=== PATIENT | male | born 1950 | race Caucasian/White ===

== ENCOUNTER 2020-04-07 13:01 | Inpatient (IN) | payer OTHER, SELFPAY ==
[2020-04-07] VITALS (13 sets, daily range): BP systolic 132–174; BP diastolic 59–83; PULSE 63–91; RESP 16–27; TEMP 36.7–37.6; O2SAT 75–97; BMI 28.5
--- NOTE | ~2020-04-07 | XR_ITS ---
EXAMINATION: XR CHEST CLINICAL INFORMATION: Hypoxia. Covid infection. COMPARISON: Previous chest x-ray and chest CTA 04/07/2020 TECHNIQUE: Frontal view of the chest was obtained. FINDINGS: The cardiac and mediastinal contours are stable. There is evidence of interstitial disease. There is increasing bilateral airspace disease suggestive of pneumonia. This is greatest at the lung bases and spares the left upper lobe. There is no pleural effusion or pneumothorax. Bony structures are unremarkable. XR/XR chest 1V IMPRESSION: Increasing bilateral airspace disease probably representing pneumonia. There is also evidence of underlying interstitial lung disease.
--- NOTE | ~2020-04-07 | XR_ITS ---
EXAMINATION: XR CHEST CLINICAL INFORMATION: COVID pneumonia COMPARISON: Chest radiographs 07/21/2018, 10/06/2015, 04/19/2015; CT chest 07/23/2018 TECHNIQUE: Portable upright AP view of the chest was obtained. FINDINGS: There is coarsening of the bronchovascular markings bilateral lower zones and also right upper and perihilar region, progressed since prior exam 07/21/2018. Findings partly related to interstitial lung disease. Superimposed streaky groundglass opacities are suspected. There is no lobar or segmental airspace consolidation or persistent the heart is normal in size. The hilar and mediastinal contours and bony structures are unremarkable. XR/XR chest 1V IMPRESSION: 1. Probable progressive interstitial lung disease increased from prior study 2018. 2. Suspect superimposed reticular groundglass opacities. 3. No lobar or segmental airspace consolidation or effusion.
--- NOTE | ~2020-04-07 | CT_ITS ---
EXAMINATION: CT ANGIOGRAM OF THE CHEST WITH AND WITHOUT CONTRAST (CT PULMONARY ANGIOGRAM FOR PE) CLINICAL INFORMATION: Reason for Exam covid +ve sob COMPARISON: 07/23/2018 TECHNIQUE: Prior to contrast administration, noncontrast localization images were obtained. Subsequently, multidetector volumetric imaging was performed from the thoracic inlet to below the diaphragms following the administration of 80 mL Omnipaque 350 intravenous contrast. No contrast reaction reported Sagittal, coronal, and MIP oblique sagittal reformatted images were obtained on the CT workstation, uploaded to PACS, and reviewed. This CT examination was performed using dose optimization techniques as appropriate, variously including the following: *Automated exposure control *Adjustment of mA and/or kV according to patient size (this includes techniques or standardized protocols for targeted exams where dose is matched to indication/reason for exam; i.e. extremities or head) *Use of iterative reconstruction technique Total exam dose-length product 276 mGy-cm FINDINGS: QUALITY OF STUDY/CONTRAST BOLUS: There is misregistration artifact limiting assessment. PULMONARY ARTERIES: No gross central or segmental pulmonary emboli. Pulmonary arteries are prominent consistent with pulmonary hypertension. THORACIC AORTA: No aneurysm or dissection. LUNG: There is evidence of extensive interstitial lung disease right greater than left with honeycombing particularly on the right. Relative sparing of the apices indicating a basilar gradient. Extent of interstitial infiltrate and groundglass opacities appears to have increased together bases since baseline indicating superimposed atypical infection as per history. Limited detail due to motion degradation. Extent of traction bronchiolectasis is similar. Detail limited for assessment of subtle nodules and pulmonary calculations is noted previously. PLEURA: No pleural effusion or pneumothorax. MEDIASTINUM: Normal heart size. No pericardial effusion. No hilar or mediastinal lymphadenopathy. Straightening of into ventricular septum consistent with increased right heart pressures. CHEST WALL/AXILLA: No axillary or internal mammary lymphadenopathy. OSSEOUS STRUCTURES: No acute or suspicious osseous abnormality. UPPER ABDOMEN: Incidental gallstones within the gallbladder lumen in course right lobe central calcifications. Adrenal nodules appears similar to baseline. The CBD is seen partially and appears prominent but stable. CT/CT angio chest PE protocol IMPRESSION: 1. Limited imaging demonstrating no definitive findings of acute pulmonary embolism. There are changes of pulmonary hypertension with evidence for increased right heart pressures due to presumably advanced interstitial lung disease with superimposed atypical infectious changes. 2. Other chronic findings appear similar. VTE: negative
--- NOTE | ~2020-04-07 | XR_ITS ---
EXAMINATION: XR CHEST CLINICAL INFORMATION: Tube placement COMPARISON: 04/20/2020 TECHNIQUE: Frontal view of the chest was obtained. FINDINGS: The endotracheal tube terminates 5 cm above the rick. Right internal jugular central venous catheter terminates near the cavoatrial junction. Cardiac leads overlie the chest. The lungs are well expanded. Bilateral airspace opacities with interstitial prominence noted. Mildly increased from prior. No pleural effusion or pneumothorax. The cardiomediastinal silhouette is unchanged, with a calcified aorta. XR/XR chest 1V IMPRESSION: Endotracheal tube terminating 5 cm above the rick. Worsening bilateral airspace opacities.
--- NOTE | 2020-04-07 13:17 | ECG_ITS ---
Test Reason : SOB Blood Pressure : / mmHG Vent. Rate : 084 BPM Atrial Rate : 084 BPM P-R Int : 168 ms QRS Dur : 130 ms QT Int : 392 ms P-R-T Axes : 016 -17 027 degrees QTc Int : 463 ms Normal sinus rhythm Right bundle branch block Abnormal ECG When compared with ECG of 21-JUL-2018 14:52, No significant change was found Referred By: Ricky Collier Electronically Signed By:RUDY CABRERA MD
--- NOTE | 2020-04-07 13:17 | PC.NURSE ---
BILATERAL LE EDEMA, SHALLOW RESP
[2020-04-07 13:34] LABS: MANUAL DIFF FLAG NO
[2020-04-07 13:39] LABS: Basophils Percent Auto 0.2 % (0-2); Eosinophils Absolute Auto 0.3 X10*3/uL (0.0-0.4); Eosinophils Percent Auto 3.9 % (0-4); Hematocrit 27.2 % (42-52); Imm Gran Abs Auto 0.02 X10*3/uL (0.00-0.03); Imm Gran Pct Auto 0.2 % (0.0-0.4); Lymphocytes Absolute Auto 1.2 X10*3/uL (1.2-4.9); Lymphocytes Percent Auto 14.1 % (20-40); Mean Corpuscular HGB Conc 29.4 g/dl (31.0-36.0); Mean Corpuscular Hemoglobin 18.4 pg (27.0-33.0); Mean Platelet Volume 9.5 fL (9.4-12.4); Monocytes Absolute Auto 0.7 X10*3/uL (0.1-1.2); Monocytes Percent Auto 8.3 % (2-11); Neutrophils Absolute Auto 6.1 X10*3/uL (2.0-8.3); Neutrophils Percent Auto 73.3 % (45-73); Platelet Count 449 X10*3/uL (160-400); Red Blood Count 4.35 X10*6/uL (4.60-5.80); Red Cell Distribution Width 21.7 % (11.0-16.0); White Blood Count 8.4 X10*3/uL (4.8-10.8)
[2020-04-07 13:40] LABS: Mean Corpuscular Volume 62.5 fL (80-98)
[2020-04-07 13:44] LABS: INTERNATIONAL NORM RATIO 1.1 (0.9-1.1); Prothrombin Time 13.5 SEC (10.8-13.0)
--- NOTE | 2020-04-07 13:44 | ED_ITS ---
HPI - SOB/Dyspnea General Chief Complaint: Dyspnea Stated Complaint: +COVID,SOB Time Seen by Provider: 04/07/20 13:17 Source: patient Mode of arrival: ambulatory Limitations: no limitations History of Present Illness HPI Narrative: Patient feeling short of breath coughing for last 1 week got tested for COVID yesterday which was positive comes here with increased shortness of breath saturating 80% at room air , malaise++ denies any fever no chest pain patient denies any lung condition in the past patient has history of chronic iron deficiency anemia on iron pills MD elicited complaint: shortness of breath and cough Related Data Allergies Allergy/AdvReac Type Severity Reaction Status Date / Time No Known Allergies Allergy Unverified 11/12/19 15:36 [No Known Allergies*] pollen Allergy Unknown Uncoded 02/05/17 00:00 Review of Systems Review of Systems: Constitutional : No Weight loss, No Fever, No Chills ENT/Mouth : No sore throat, No Rhinorrhea Eyes: No Eye Pain, No Swelling Cardiovascular : No Chest Pain, no palpitations Respiratory : ++Cough, No Sputum, +++shortness of breath Gastrointestinal : no Nausea, No Vomiting, No Diarrhea, No abdominal Pain, no black stools Genitourinary : No Dysuria, No Urinary Frequency Musculoskeletal : No joint pain, No Myalgias, No Joint Swelling Skin : No Skin Lesions, No rash Neuro : +++Weakness, No Numbness, No Dizziness, No Headache Psych : No Anxiety/Panic, No Depression Heme/Lymph: No Bruising, No Lymphadenopathy Endocrine : No Polyuria, No Polydipsia All other systems reviewed and are negative [facility] Past Medical History Medical History (Updated 04/07/20 @ 15:31 by CHET Rosenthal) Diabetes HLD (hyperlipidemia) HTN (hypertension) PVD (peripheral vascular disease) Surgical History S/P femoral-popliteal bypass surgery Social History Social History Smoked in Last 30 Days: No Use of substances other than those prescribed or required for medical reasons: No Advance Directives: No Advance Directives Information Provided: No Physical Exam Vital Signs: Vital Signs: Last Vital Signs Temp 98.5 F 04/07/20 13:10 Pulse 84 04/07/20 13:10 Resp 18 04/07/20 13:10 BP 154/71 H 04/07/20 13:10 Pulse Ox 97 04/07/20 13:15 Body Mass Index 28.5 Appearance: Alert. Oriented X3. In moderate distress. Eyes: Pupils equal, round and reactive to light. Pallor+ ENT: Pharynx normal. Neck: Normal inspection. Neck supple. CVS: Normal heart rate and rhythm. Pulses normal. Respiratory: ++ respiratory distress. Diminished breath sounds bilateral no crackles no rales no rhonchi Abdomen: Soft and nontender. Bowel sounds are present, no mass palpable, no CVA tenderness Rectal exam: Normal tone brown stools guaiac negative Skin: Skin warm and dry. Normal skin color. Normal skin turgor. Extremities: 2+ lower extremity edema. No calf tenderness Neuro: Oriented X 3. No motor deficit. No sensory deficit. MDM - SOB/Dyspnea MDM Narrative Medical decision making narrative: Patient COVID -19 positive with diffuse infiltrate with anemia guaiac negative hypoxic on arrival saturating 94% on 4 L will admit patient for COVID-19 related pneumonia with hypoxia supplemental oxygen and IV steroids and also will transfuse 2 units of blood Differential Diagnosis Differential diagnosis: Likely pneumonia Lab Data Attestation: I reviewed the patient's lab results. Result diagrams: 04/07/20 15:24 04/07/20 13:25 Labs: Lab Results 04/07/20 04/07/20 04/07/20 Range/Units 13:25 13:25 13:25 WBC 8.4 (4.8-10.8) X10*3/uL RBC 4.35 L (4.60-5.80) X10*6/uL Hgb 8.0 L (14.0-18.0) g/dl Hct 27.2 L (42-52) % MCV 62.5 L (80-98) fL MCH 18.4 L (27.0-33.0) pg MCHC 29.4 L (31.0-36.0) g/dl RDW 21.7 H (11.0-16.0) % Plt Count 449 H (160-400) X10*3/uL MPV 9.5 (9.4-12.4) fL Immature Gran % (Auto) 0.2 (0.0-0.4) % Neut % (Auto) 73.3 H (45-73) % Lymph % (Auto) 14.1 L (20-40) % Archer % (Auto) 8.3 (2-11) % Eos % (Auto) 3.9 (0-4) % Baso % (Auto) 0.2 (0-2) % Lymph # (Auto) 1.2 (1.2-4.9) X10*3/uL Archer # (Auto) 0.7 (0.1-1.2) X10*3/uL Eos # (Auto) 0.3 (0.0-0.4) X10*3/uL Baso # (Auto) 0.0 (0.0-0.2) X10*3/uL Abs Immat Gran (auto) 0.02 (0.00-0.03) X10*3/uL Absolute Neuts (auto) 6.1 (2.0-8.3) X10*3/uL Absolute Nucleated RBC 0.000 (0.0-0.012) X10*3/uL Nucleated RBC % (auto) 0.0 (0.0-0.2) /100WBC PT (10.8-13.0) SEC INR (0.9-1.1) APTT (24.1-38.0) SEC D-Dimer NG/ML VBG pH (7.32-7.43) VBG pCO2 mmHg VBG pO2 mmHg VBG HCO3 mmol/L VBG O2 Saturation % VBG Base Excess mmol/L Sodium 139 (135-145) mmol/L Potassium 4.6 (3.3-5.1) mmol/L Chloride 107 (96-108) mmol/L Carbon Dioxide 23 (22-29) mmol/L Anion Gap 14 (12-20) BUN 11 (9-16) mg/dL Creatinine 0.84 (0.5-1.4) mg/dL Estim Creat Clear Calc 92.5 Estimated GFR > 60 Random Glucose 112 (60-115) mg/dL Lactic Acid 2.1 H* (0.5-2.0) mmol/L Calcium 8.3 L (8.4-10.2) mg/dL Iron (45-160) mcg/dL TIBC (228-428) mcg/dL % Saturation (15-50) % Unsat Iron Binding ug/dL Ferritin 37 (20-250) ng/mL Total Bilirubin 0.3 (0.0-1.0) mg/dL Direct Bilirubin 0.2 (0.0-0.5) mg/dL AST 28 (5-37) U/L ALT 11 (0-40) U/L Alkaline Phosphatase 121 H (39-117) U/L Lactate Dehydrogenase 368 H (118-273) U/L Troponin I High Sens (<3.5-35.0) ng/L C-Reactive Protein 5.55 H (< or = 0.50) mg/dL B-Natriuretic Peptide (<100) pg/mL Total Protein 7.0 (6.5-8.0) g/dL Albumin 3.7 (3.5-5.0) g/dL Procalcitonin ng/mL COVID-19 ([facility]) (Negative) COVID-19 Clin Com 04/07/20 04/07/20 04/07/20 Range/Units 13:25 13:25 13:25 WBC (4.8-10.8) X10*3/uL RBC (4.60-5.80) X10*6/uL Hgb (14.0-18.0) g/dl Hct (42-52) % MCV (80-98) fL MCH (27.0-33.0) pg MCHC (31.0-36.0) g/dl RDW (11.0-16.0) % Plt Count (160-400) X10*3/uL MPV (9.4-12.4) fL Immature Gran % (Auto) (0.0-0.4) % Neut % (Auto) (45-73) % Lymph % (Auto) (20-40) % Archer % (Auto) (2-11) % Eos % (Auto) (0-4) % Baso % (Auto) (0-2) % Lymph # (Auto) (1.2-4.9) X10*3/uL Archer # (Auto) (0.1-1.2) X10*3/uL Eos # (Auto) (0.0-0.4) X10*3/uL Baso # (Auto) (0.0-0.2) X10*3/uL Abs Immat Gran (auto) (0.00-0.03) X10*3/uL Absolute Neuts (auto) (2.0-8.3) X10*3/uL Absolute Nucleated RBC (0.0-0.012) X10*3/uL Nucleated RBC % (auto) (0.0-0.2) /100WBC PT 13.5 H (10.8-13.0) SEC INR 1.1 (0.9-1.1) APTT 32.8 (24.1-38.0) SEC D-Dimer 246 NG/ML VBG pH (7.32-7.43) VBG pCO2 mmHg VBG pO2 mmHg VBG HCO3 mmol/L VBG O2 Saturation % VBG Base Excess mmol/L Sodium (135-145) mmol/L Potassium (3.3-5.1) mmol/L Chloride (96-108) mmol/L Carbon Dioxide (22-29) mmol/L Anion Gap (12-20) BUN (9-16) mg/dL Creatinine (0.5-1.4) mg/dL Estim Creat Clear Calc Estimated GFR Random Glucose (60-115) mg/dL Lactic Acid (0.5-2.0) mmol/L Calcium (8.4-10.2) mg/dL Iron (45-160) mcg/dL TIBC (228-428) mcg/dL % Saturation (15-50) % Unsat Iron Binding ug/dL Ferritin Cancelled (20-250) ng/mL Total Bilirubin (0.0-1.0) mg/dL Direct Bilirubin (0.0-0.5) mg/dL AST (5-37) U/L ALT (0-40) U/L Alkaline Phosphatase (39-117) U/L Lactate Dehydrogenase (118-273) U/L Troponin I High Sens 4.2 (<3.5-35.0) ng/L C-Reactive Protein (< or = 0.50) mg/dL B-Natriuretic Peptide 51 (<100) pg/mL Total Protein (6.5-8.0) g/dL Albumin (3.5-5.0) g/dL Procalcitonin ng/mL COVID-19 ([facility]) (Negative) COVID-19 Clin Com 04/07/20 04/07/20 04/07/20 Range/Units 13:25 13:25 14:45 WBC (4.8-10.8) X10*3/uL RBC (4.60-5.80) X10*6/uL Hgb (14.0-18.0) g/dl Hct (42-52) % MCV (80-98) fL MCH (27.0-33.0) pg MCHC (31.0-36.0) g/dl RDW (11.0-16.0) % Plt Count (160-400) X10*3/uL MPV (9.4-12.4) fL Immature Gran % (Auto) (0.0-0.4) % Neut % (Auto) (45-73) % Lymph % (Auto) (20-40) % Archer % (Auto) (2-11) % Eos % (Auto) (0-4) % Baso % (Auto) (0-2) % Lymph # (Auto) (1.2-4.9) X10*3/uL Archer # (Auto) (0.1-1.2) X10*3/uL Eos # (Auto) (0.0-0.4) X10*3/uL Baso # (Auto) (0.0-0.2) X10*3/uL Abs Immat Gran (auto) (0.00-0.03) X10*3/uL Absolute Neuts (auto) (2.0-8.3) X10*3/uL Absolute Nucleated RBC (0.0-0.012) X10*3/uL Nucleated RBC % (auto) (0.0-0.2) /100WBC PT (10.8-13.0) SEC INR (0.9-1.1) APTT (24.1-38.0) SEC D-Dimer NG/ML VBG pH (7.32-7.43) VBG pCO2 mmHg VBG pO2 mmHg VBG HCO3 mmol/L VBG O2 Saturation % VBG Base Excess mmol/L Sodium (135-145) mmol/L Potassium (3.3-5.1) mmol/L Chloride (96-108) mmol/L Carbon Dioxide (22-29) mmol/L Anion Gap (12-20) BUN (9-16) mg/dL Creatinine (0.5-1.4) mg/dL Estim Creat Clear Calc Estimated GFR Random Glucose (60-115) mg/dL Lactic Acid (0.5-2.0) mmol/L Calcium (8.4-10.2) mg/dL Iron 21 L (45-160) mcg/dL TIBC 364 (228-428) mcg/dL % Saturation 6 L (15-50) % Unsat Iron Binding 343 ug/dL Ferritin (20-250) ng/mL Total Bilirubin (0.0-1.0) mg/dL Direct Bilirubin (0.0-0.5) mg/dL AST (5-37) U/L ALT (0-40) U/L Alkaline Phosphatase (39-117) U/L Lactate Dehydrogenase (118-273) U/L Troponin I High Sens (<3.5-35.0) ng/L C-Reactive Protein (< or = 0.50) mg/dL B-Natriuretic Peptide (<100) pg/mL Total Protein (6.5-8.0) g/dL Albumin (3.5-5.0) g/dL Procalcitonin 0.03 ng/mL COVID-19 ([facility]) Positive A (Negative) COVID-19 Clin Com See Note 04/07/20 Range/Units 14:45 WBC (4.8-10.8) X10*3/uL RBC (4.60-5.80) X10*6/uL Hgb (14.0-18.0) g/dl Hct (42-52) % MCV (80-98) fL MCH (27.0-33.0) pg MCHC (31.0-36.0) g/dl RDW (11.0-16.0) % Plt Count (160-400) X10*3/uL MPV (9.4-12.4) fL Immature Gran % (Auto) (0.0-0.4) % Neut % (Auto) (45-73) % Lymph % (Auto) (20-40) % Archer % (Auto) (2-11) % Eos % (Auto) (0-4) % Baso % (Auto) (0-2) % Lymph # (Auto) (1.2-4.9) X10*3/uL Archer # (Auto) (0.1-1.2) X10*3/uL Eos # (Auto) (0.0-0.4) X10*3/uL Baso # (Auto) (0.0-0.2) X10*3/uL Abs Immat Gran (auto) (0.00-0.03) X10*3/uL Absolute Neuts (auto) (2.0-8.3) X10*3/uL Absolute Nucleated RBC (0.0-0.012) X10*3/uL Nucleated RBC % (auto) (0.0-0.2) /100WBC PT (10.8-13.0) SEC INR (0.9-1.1) APTT (24.1-38.0) SEC D-Dimer NG/ML VBG pH 7.39 (7.32-7.43) VBG pCO2 29 mmHg VBG pO2 47 mmHg VBG HCO3 18 mmol/L VBG O2 Saturation 74.0 % VBG Base Excess -5.6 mmol/L Sodium (135-145) mmol/L Potassium (3.3-5.1) mmol/L Chloride (96-108) mmol/L Carbon Dioxide (22-29) mmol/L Anion Gap (12-20) BUN (9-16) mg/dL Creatinine (0.5-1.4) mg/dL Estim Creat Clear Calc Estimated GFR Random Glucose (60-115) mg/dL Lactic Acid (0.5-2.0) mmol/L Calcium (8.4-10.2) mg/dL Iron (45-160) mcg/dL TIBC (228-428) mcg/dL % Saturation (15-50) % Unsat Iron Binding ug/dL Ferritin (20-250) ng/mL Total Bilirubin (0.0-1.0) mg/dL Direct Bilirubin (0.0-0.5) mg/dL AST (5-37) U/L ALT (0-40) U/L Alkaline Phosphatase (39-117) U/L Lactate Dehydrogenase (118-273) U/L Troponin I High Sens (<3.5-35.0) ng/L C-Reactive Protein (< or = 0.50) mg/dL B-Natriuretic Peptide (<100) pg/mL Total Protein (6.5-8.0) g/dL Albumin (3.5-5.0) g/dL Procalcitonin ng/mL COVID-19 ([facility]) (Negative) COVID-19 Clin Com Imaging Data CT scan - chest: Attestation: I personally reviewed and interpreted this imaging study as follows: Radiologist's impression: c: Ricky Collier MD~ EXAMINATION: CT ANGIOGRAM OF THE CHEST WITH AND WITHOUT CONTRAST (CT PULMONARY ANGIOGRAM FOR PE) CLINICAL INFORMATION: Reason for Exam covid +ve sob COMPARISON: 07/23/2018 TECHNIQUE: Prior to contrast administration, noncontrast localization images were obtained. Subsequently, multidetector volumetric imaging was performed from the thoracic inlet to below the diaphragms following the administration of 80 mL Omnipaque 350 intravenous contrast. No contrast reaction reported Sagittal, coronal, and MIP oblique sagittal reformatted images were obtained on the CT workstation, uploaded to PACS, and reviewed. This CT examination was performed using dose optimization techniques as appropriate, variously including the following: *Automated exposure control *Adjustment of mA and/or kV according to patient size (this includes techniques or standardized protocols for targeted exams where dose is matched to indication/reason for exam; i.e. extremities or head) *Use of iterative reconstruction technique Total exam dose-length product 276 mGy-cm FINDINGS: QUALITY OF STUDY/CONTRAST BOLUS: There is misregistration artifact limiting assessment. PULMONARY ARTERIES: No gross central or segmental pulmonary emboli. Pulmonary arteries are prominent consistent with pulmonary hypertension. THORACIC AORTA: No aneurysm or dissection. LUNG: There is evidence of extensive interstitial lung disease right greater than left with honeycombing particularly on the right. Relative sparing of the apices indicating a basilar gradient. Extent of interstitial infiltrate and groundglass opacities appears to have increased together bases since baseline indicating superimposed atypical infection as per history. Limited detail due to motion degradation. Extent of traction bronchiolectasis is similar. Detail limited for assessment of subtle nodules and pulmonary calculations is noted previously. PLEURA: No pleural effusion or pneumothorax. MEDIASTINUM: Normal heart size. No pericardial effusion. No hilar or mediastinal lymphadenopathy. Straightening of into ventricular septum consistent with increased right heart pressures. CHEST WALL/AXILLA: No axillary or internal mammary lymphadenopathy. OSSEOUS STRUCTURES: No acute or suspicious osseous abnormality. UPPER ABDOMEN: Incidental gallstones within the gallbladder lumen in course right lobe central calcifications. Adrenal nodules appears similar to baseline. The CBD is seen partially and appears prominent but stable. CT/CT angio chest PE protocol IMPRESSION: 1. Limited imaging demonstrating no definitive findings of acute pulmonary embolism. There are changes of pulmonary hypertension with evidence for increased right heart pressures due to presumably advanced interstitial lung disease with superimposed atypical infectious changes. 2. Other chronic findings appear similar. VTE: negative ECG Data Attestation: I personally reviewed and interpreted this ECG as follows: Interpretation: Normal sinus rhythm with ventricular rate of 84 beats per minute right bundle branch block normal axis no acute ST T wave changes no acute ischemia Discharge Plan Discharge Clinical Impression: 2019 novel coronavirus–infected pneumonia (NCIP)#8211;infected pneumonia (NCIP), Hypoxia Anemia Qualifiers: Anemia type: iron deficiency Iron deficiency anemia type: other iron deficiency Qualified Code(s): D50.8 - Other iron deficiency anemias Patient Disposition: Admitted As Inpatient
[2020-04-07 13:47] LABS: D Dimer 246 NG/ML; Partial Thromboplastin Time 32.8 SEC (24.1-38.0)
[2020-04-07 13:58] LABS: Lactic Acid 2.1 mmol/L (0.5-2.0)
[2020-04-07 14:07] LABS: B Type Natriuretic Peptide 51 pg/mL (<100); Troponin-I High Sensitivity 4.2 ng/L (<3.5-35.0)
[2020-04-07 14:15] LABS: Alanine Aminotransferase 11 U/L (0-40); Albumin Level 3.7 g/dL (3.5-5.0); Alkaline Phosphatase 121 U/L (39-117); Anion Gap 14 (12-20); Aspartate Amino Transferase 28 U/L (5-37); Bilirubin Direct 0.2 mg/dL (0.0-0.5); Bilirubin Total 0.3 mg/dL (0.0-1.0); Blood Urea Nitrogen 11 mg/dL (9-16); C Reactive Protein 5.55 mg/dL (< or = 0.50); Calcium 8.3 mg/dL (8.4-10.2); Carbon Dioxide 23 mmol/L (22-29); Chloride 107 mmol/L (96-108); Creatinine Clr Calc Pharmacy 92.5; Estimated Glomerular Filt Rate > 60; Glucose Random 112 mg/dL (60-115); Lactate Dehydrogenase 368 U/L (118-273); Potassium 4.6 mmol/L (3.3-5.1); Sodium 139 mmol/L (135-145)
[2020-04-07 14:34] LABS: Procalcitonin 0.03 ng/mL
[2020-04-07 14:35] LABS: Ferritin 37 ng/mL (20-250)
[2020-04-07] MEDS: iohexoL 350 MG/ML 100 ML INFUS..BTL IV (14:50)
[2020-04-07 14:54] LABS: Base Excess VBG -5.6 mmol/L; HCO3 VBG 18 mmol/L; PO2 VBG 47 mmHg
[2020-04-07 14:55] LABS: PCO2 VBG 29 mmHg; pH VBG 7.39 (7.32-7.43)
[2020-04-07 15:00] LABS: COVID-19 Test Positive (Negative)
--- NOTE | 2020-04-07 15:21 | P.HPHOSP_ITS ---
History of Present Illness Date of Service: 04/07/20 Chief Complaint: shortness of breath This is a 70-year-old male who presents the emergency department with shortness of breath. Patient was recently diagnosed with COVID-19. He was evaluated last week and tested negative but was retested on Wednesday 04/05 and was informed yesterday that the test was positive. His brother in law who lives with him has also been feeling ill. He has not been feeling well for the last week to week and half. His shortness of breath is primarily with exertion. He has associated cough. He denies associated fever, chills. On arrival to the ED he was hypoxia and documented to be saturating 80% on room air. chest x-ray showed progressive interstitial lung disease increased from 2019 with likely superimposed reticular ground-glass opacities. CTA was done and is pending at this time. Inflammatory markers were checked and CRP was 5.55, LDH 368, ferritin 37. His initial lactic acid was 2.1. His CBC revealed anemia with an H /H of 8.0/27.2 which was a decrease from 13.6/41.6 on 07/25/2018. He denies any dark or bloody stools. A rectal exam was done and the results are pending at this time. Review of Systems Review of Systems: Yes all other systems are reviewed and are negative Constitutional: Constitutional: Denies chills and Denies fever(s) Cardiovascular: Cardiovascular: Denies chest pain and Reports dyspnea Respiratory: Respiratory: Reports dyspnea Gastrointestinal: Gastrointestinal: Denies abdominal pain [facility] Medical History (Updated 04/07/20 @ 15:31 by CHET Rosenthal) Diabetes HLD (hyperlipidemia) HTN (hypertension) PVD (peripheral vascular disease) Functional capacity: independent ambulation Family history: reviewed and not pertinent Surgical History S/P femoral-popliteal bypass surgery Social History Smoked in Last 30 Days: No Use of substances other than those prescribed or required for medical reasons: No Advance Directives: No Advance Directives Information Provided: No Meds Allergies Allergy/AdvReac Type Severity Reaction Status Date / Time No Known Allergies Allergy Unverified 11/12/19 15:36 [No Known Allergies*] pollen Allergy Unknown Uncoded 02/05/17 00:00 Active Medications: Current Medications Generic Name Dose Route Start Last Admin Trade Name Carly PRN Reason Stop Dose Admin Pharmacy Consult 1 each 04/07/20 14:47 Consult Rx Perform Med Rec MISCELLANE ONCE PRN Consult order Home Medications Medication Instructions Recorded Confirmed Last Taken Type acetaminophen 500 mg PO TID PRN 04/07/20 04/07/20 Unknown History aspirin 81 mg PO DAILY 04/07/20 04/07/20 Unknown History atorvastatin 80 mg PO BEDTIME 04/07/20 04/07/20 Unknown History betamethasone dipropionate 1 appl TOPICAL BID PRN 04/07/20 04/07/20 Unknown History bupropion HCl 300 mg PO DAILY 04/07/20 04/07/20 Unknown History cilostazol 100 mg PO BID 04/07/20 04/07/20 Unknown History clopidogrel 75 mg PO DAILY 04/07/20 04/07/20 Unknown History clotrimazole 1 appl TOPICAL DAILY 04/07/20 04/07/20 Unknown History cyanocobalamin (vitamin B-12) 1,000 mcg PO DAILY 04/07/20 04/07/20 Unknown History diltiazem HCl 420 mg PO DAILY 04/07/20 04/07/20 Unknown History folic acid 1 mg PO DAILY 04/07/20 04/07/20 Unknown History insulin aspart U-100 [Novolog See Rx Instructions .ROUTE .COMPLEX 04/07/20 04/07/20 Unknown History U-100 Insulin aspart] insulin glargine [Lantus U-100 15 unit SUBCUT DAILY 04/07/20 04/07/20 Unknown History Insulin] latanoprost 1 drp OPHTHALMIC (EYE) QPM 04/07/20 04/07/20 Unknown History lisinopril-hydrochlorothiazide 1 tab PO BID 04/07/20 04/07/20 Unknown History tolterodine 4 mg PO DAILY 04/07/20 04/07/20 Unknown History zolpidem 10 mg PO BEDTIME PRN 04/07/20 04/07/20 Unknown History Physical Exam Vital Signs and Narrative: Vital Signs: Last Vital Signs Temp 98.5 F 04/07/20 13:10 Pulse 84 04/07/20 13:10 Resp 18 04/07/20 13:10 BP 154/71 H 04/07/20 13:10 Pulse Ox 97 04/07/20 13:15 Body Mass Index 28.5 Const: General: alert and awake Nutritional Appearance: well nourished Orientation/consciousness: patient oriented x3 HENMT: Head: Yes normocephalic and Yes atraumatic Eyes: Sclerae: sclerae normal Chest: Chest palpation & inspection: normal inspection of the chest Resp: Effort & Inspection: tachypneic Cardio: Rate: regular rate Rhythm: regular rhythm GI: Palpation (GI): Soft to palpation and nontender Skin: General skin exam: no rashes or lesions noted Neuro: General: patient oriented x3 Cranial nerves: Yes CN's II-XII intact bilaterally and Yes Bilaterally intact EOM present Extrem: General: Yes normal to inspection Results Labs CBC and Chem 7: 04/07/20 15:24 04/07/20 13:25 Labs: Laboratory Results - last 24 hr 04/07/20 04/07/20 04/07/20 13:25 13:25 13:25 MCV 62.5 L MCH 18.4 L MCHC 29.4 L RDW 21.7 H Plt Count 449 H MPV 9.5 Immature Gran % (Auto) 0.2 Neut % (Auto) 73.3 H Lymph % (Auto) 14.1 L [place] % (Auto) 8.3 Eos % (Auto) 3.9 Baso % (Auto) 0.2 Lymph # (Auto) 1.2 Mineral # (Auto) 0.7 Eos # (Auto) 0.3 Baso # (Auto) 0.0 Abs Immat Gran (auto) 0.02 Absolute Neuts (auto) 6.1 Absolute Nucleated RBC 0.000 Nucleated RBC % (auto) 0.0 PT INR APTT D-Dimer VBG pH VBG pCO2 VBG pO2 VBG HCO3 VBG O2 Saturation VBG Base Excess Anion Gap 14 Estim Creat Clear Calc 92.5 Estimated GFR > 60 Random Glucose 112 Lactic Acid 2.1 H* Calcium 8.3 L Ferritin 37 Total Bilirubin 0.3 Direct Bilirubin 0.2 AST 28 ALT 11 Alkaline Phosphatase 121 H Lactate Dehydrogenase 368 H Troponin I High Sens C-Reactive Protein 5.55 H B-Natriuretic Peptide Total Protein 7.0 Albumin 3.7 Procalcitonin COVID-19 ([facility]) COVID-19 Clin Com 04/07/20 04/07/20 04/07/20 13:25 13:25 13:25 MCV MCH MCHC RDW Plt Count MPV Immature Gran % (Auto) Neut % (Auto) Lymph % (Auto) Mineral % (Auto) Eos % (Auto) Baso % (Auto) Lymph # (Auto) Mineral # (Auto) Eos # (Auto) Baso # (Auto) Abs Immat Gran (auto) Absolute Neuts (auto) Absolute Nucleated RBC Nucleated RBC % (auto) PT 13.5 H INR 1.1 APTT 32.8 D-Dimer 246 VBG pH VBG pCO2 VBG pO2 VBG HCO3 VBG O2 Saturation VBG Base Excess Anion Gap Estim Creat Clear Calc Estimated GFR Random Glucose Lactic Acid Calcium Ferritin Cancelled Total Bilirubin Direct Bilirubin AST ALT Alkaline Phosphatase Lactate Dehydrogenase Troponin I High Sens 4.2 C-Reactive Protein B-Natriuretic Peptide 51 Total Protein Albumin Procalcitonin COVID-19 ([facility]) COVID-[employer] 04/07/20 04/07/20 04/07/20 13:25 14:45 14:45 MCV MCH MCHC RDW Plt Count MPV Immature Gran % (Auto) Neut % (Auto) Lymph % (Auto) Mineral % (Auto) Eos % (Auto) Baso % (Auto) Lymph # (Auto) Mineral # (Auto) Eos # (Auto) Baso # (Auto) Abs Immat Gran (auto) Absolute Neuts (auto) Absolute Nucleated RBC Nucleated RBC % (auto) PT INR APTT D-Dimer VBG pH 7.39 VBG pCO2 29 VBG pO2 47 VBG HCO3 18 VBG O2 Saturation 74.0 VBG Base Excess -5.6 Anion Gap Estim Creat Clear Calc Estimated GFR Random Glucose Lactic Acid Calcium Ferritin Total Bilirubin Direct Bilirubin AST ALT Alkaline Phosphatase Lactate Dehydrogenase Troponin I High Sens C-Reactive Protein B-Natriuretic Peptide Total Protein Albumin Procalcitonin 0.03 COVID-19 ([facility]) Positive A CalesterID-19 NATIONSPLAY See Note Imaging Radiologist's Impressions: Impressions Chest X-Ray 04/07/20 13:20 IMPRESSION: 1. Probable progressive interstitial lung disease increased from prior study 2019. 2. Suspect superimposed reticular groundglass opacities. 3. No lobar or segmental airspace consolidation or effusion. Assessment and Plan (1) 2019 novel coronavirus–infected pneumonia (NCIP)#8211;infected pneumonia (NCIP): Status: Acute (2) Hypoxia: Status: Acute This is a 70-year-old male with history of peripheral vascular disease, diabetes, hypertension, dyslipidemia, recent diagnosis of COVID-19 who presents to the emergency department with shortness of breath found to be hypoxic Acute respiratory failure with hypoxia Pneumonia secondary to COVID-19 -IV dexamethasone -supplemental oxygen as needed, wean as tolerated -ID consult anemia significant drop from previous stool occult blood negative labs c/w iron deficiency -follow cbc diabetes Continue home dose of Lantu continues -SSI, POC Hypertension Continue lisinopril, hydrochlorothiazide Confirm diltiazem dose in a.m. Overactive bladder Continue to tolerodine Mood Continue bupropion PVD Continue aspirin, Plavix, pletal Hyperlipidemia Continue statin dvt ppx - boots code status - full code This case was discussed with Dr. Malik
--- NOTE | 2020-04-07 15:21 | PM.EVENT ---
Event Note Date of Service: 04/08/20 Event Note: addendum to H+P by CHET Lockett I interviewed and examined the patient. I discussed their presentation and management with the mid-level provider. I reviewed the history and physical and agree with the documentation, with the following additions and corrections: 70yo M with HTN, DM2, PAD s/p fem pop byass on clopidogrel, HLD, depression, anemia on iron presenting with 10d of cough and worsening dyspnea found to have SaO2 80 on RA here no fevers no sick contacts currently afebrile, P 84, RR 26-28, BP 154.71, Sao2 97 on 4L NC tachypneic no edema labs notable for WBC 8.4 with 14% lymphs, plt 449 . Hb 8, MCV 63, FOBT neg LA 2.1, D-dimer 246 SCr 0.84 ferritin 37, LDH 368, CRP 5.55, PCT 0.03, LDh 368, PCT 0.03 CXR with interstitial disease + groundglass opacities CTA no PE. pHTN with advanced interstitial lung disease with superimposed atypical infectious changes transfsed 2 units of pRBCs in ED plan admit to [facility], dexamethasone 6 mg daily x10d, ID consult [out of remdesivir window?] monitor Hb
[2020-04-07 15:31] LABS: OBS Int Ctl Valid YES; OBS1 NEG (NEG)
[2020-04-07 15:33] LABS: Reflex Lactate? Lactic Acid Added
[2020-04-07 15:34] LABS: Hematocrit 26.1 % (42-52); Hemoglobin 7.7 g/dl (14.0-18.0)
[2020-04-07 15:36] LABS: Iron 21 mcg/dL (45-160); Percent Iron Saturation 6 % (15-50); Total Iron Binding Capacity 364 mcg/dL (228-428); Unsaturated Iron Binding 343 ug/dL
[2020-04-07 16:25] LABS: ~Lactic Acid-LAB USE ONLY 1.8 mmol/L (0.5-2.0)
--- NOTE | 2020-04-07 18:05 | PC.NURSE ---
Pt removed nasal cannula while eating- desat to 71% on room air, placed back on nasal cannula and educated. spo2 now trending up wnl. Pt in no distress at this time.
--- NOTE | 2020-04-07 18:11 | PC.NURSE ---
Pt unable to main spo2 wnl on nasal cannula- placed on non-rebreather, now 94%
--- NOTE | 2020-04-07 18:14 | PC.NURSE ---
Pt now tolerating 96% on 4l nasal cannula
[2020-04-07 20:53] LABS: Glucose, Whole Blood 285 mg/dL (60-115)
[2020-04-07] MEDS: hydroCHLOROthiazide 12.5 MG TABLET PO (21:22)
[2020-04-07] MEDS: Atorvastatin Calcium 80 MG TABLET PO (21:22)
[2020-04-07] MEDS: Insulin Lispro 100 UNIT/ML 3 ML VIAL SUBCUT (21:22)
[2020-04-07] MEDS: cilostazoL 100 MG TABLET PO (21:35)
[2020-04-07] MEDS: 0.9 % Sodium Chloride Flush 3 ML SYRINGE IVFLUSH (22:15)
[2020-04-08] VITALS (8 sets, daily range): BP systolic 143–177; BP diastolic 70–88; PULSE 77–88; RESP 20–28; TEMP 35.4–37.2; O2SAT 91–98
[2020-04-08 00:19] LABS: Glucose, Whole Blood 140 mg/dL (60-115)
[2020-04-08 06:57] LABS: MANUAL DIFF FLAG NO
[2020-04-08 07:12] LABS: Basophils Percent Auto 0.1 % (0-2); Imm Gran Abs Auto 0.04 X10*3/uL (0.00-0.03); Imm Gran Pct Auto 0.5 % (0.0-0.4); Lymphocytes Absolute Auto 0.7 X10*3/uL (1.2-4.9); Lymphocytes Percent Auto 8.7 % (20-40); Mean Corpuscular Hemoglobin 19.7 pg (27.0-33.0); Mean Corpuscular Volume 65.5 fL (80-98); Monocytes Absolute Auto 0.6 X10*3/uL (0.1-1.2); Monocytes Percent Auto 6.8 % (2-11); Neutrophils Absolute Auto 6.8 X10*3/uL (2.0-8.3); Neutrophils Percent Auto 83.9 % (45-73); Platelet Count 373 X10*3/uL (160-400); Red Blood Count 4.58 X10*6/uL (4.60-5.80); Red Cell Distribution Width 25.7 % (11.0-16.0); White Blood Count 8.1 X10*3/uL (4.8-10.8)
[2020-04-08 07:55] LABS: Glucose, Whole Blood 212 mg/dL (60-115)
[2020-04-08 08:22] LABS: Estimated Average Glucose 151 mg/dL; Hemoglobin A1c % 6.9 %
[2020-04-08] MEDS: Insulin Glargine,Hum.rec.anlog 100 UNIT/ML 10 ML VIAL 15 UNIT SUBCUT (08:31)
[2020-04-08] MEDS: Insulin Lispro 100 UNIT/ML 3 ML VIAL SUBCUT ×4 (08:31→21:18)
[2020-04-08] MEDS: 0.9 % Sodium Chloride Flush 3 ML SYRINGE IVFLUSH ×3 (08:31→21:26)
[2020-04-08] MEDS: hydroCHLOROthiazide 12.5 MG TABLET PO ×2 (08:32→21:18)
[2020-04-08] MEDS: cilostazoL 100 MG TABLET PO ×2 (08:32→21:18)
[2020-04-08] MEDS: Folic Acid 1 MG TABLET PO (08:32)
[2020-04-08] MEDS: Aspirin Enteric Coated 81 MG TABLET.DR PO (08:32)
[2020-04-08] MEDS: buPROPion HCl XL 300 MG TAB.ER.24H PO (08:33)
[2020-04-08] MEDS: Tolterodine Tartrate LA 4 MG CAP.ER.24H PO (08:33)
[2020-04-08] MEDS: Clopidogrel Bisulfate 75 MG TABLET PO (08:33)
[2020-04-08] MEDS: Cyanocobalamin (Vitamin B-12) 1,000 MCG TABLET 1000 MCG PO (08:33)
--- NOTE | 2020-04-08 09:39 | MHC.CM.PN ---
Patient is on the Covid Unit and not reachable by phone this morning; CM spoke with /Cira at [phone], with assist of [employer] over the phone. Patient lives in a house with his and [id number] and he is functionally independent. The goal for dc is to return home with no anticipated need for home services; CM has initiated and will follow for dc planning. PCP is from [facility] (Dr. Qian Cuevas @ [phone]).
--- NOTE | 2020-04-08 11:12 | HO.PM.IMPN ---
Subjective Subjective Date of Service: 04/08/20 Interval History: Mild dyspnea Was on NRB overnight but now back on 4L NC No chest pain No fever Physical Exam Vital Signs: Vital Signs: Last Vital Signs Temp 98.7 F 04/08/20 08:00 Pulse 77 04/08/20 08:00 Resp 20 04/08/20 08:00 BP 150/73 H 04/08/20 08:00 Pulse Ox 98 04/08/20 08:00 Body Mass Index 28.5 Gen: in no acute distress HEENT: sclera anicteric, moist mucus membranes Neck: supple Lungs: no respiratory distress, auscultation deferred due to COVID-19 Heart: normal peripheral pulses Abd: soft, non-tender, non-distended Ext: no cyanosis, clubbing, or edema Skin: warm/well-perfused Neuro: alert and oriented x3, no focal findings Psych: appropriate affect Objective Data Current Medications Generic Name Dose Route Start Last Admin Trade Name Freq PRN Reason Stop Dose Admin Acetaminophen 650 mg 04/07/20 18:05 Acetaminophen 325 Mg Tablet PO Q6H PRN Pain, Mild (Pain Scale 1-3) Albuterol Sulfate 2 puff 04/07/20 18:05 Albuterol Sulfate 90 Mcg 8 Gm Inhaler INHALE Q4H PRN Shortness of Breath Aspirin 81 mg 04/08/20 09:00 04/08/20 08:32 Aspirin Enteric Coated 81 Mg Tablet.Dr PO 81 mg DAILY KYM Administration Atorvastatin Calcium 80 mg 04/07/20 21:00 04/07/20 21:22 Atorvastatin Calcium 80 Mg Tablet PO 80 mg BEDTIME KYM Administration Betamethasone Dipropion Augmented 1 appl 04/08/20 06:17 Betamethasone Dip Aug 0.05% Cr 15 Gm Tube TOPICAL BID PRN Rash Bupropion HCl 300 mg 04/08/20 09:00 04/08/20 08:33 Bupropion Hcl Xl 300 Mg Tab.Er.24h PO 300 mg DAILY KYM Administration Cilostazol 100 mg 04/07/20 21:00 04/08/20 08:32 Cilostazol 100 Mg Tablet PO 100 mg BID KYM Administration Clopidogrel Bisulfate 75 mg 04/08/20 09:00 04/08/20 08:33 Clopidogrel Bisulfate 75 Mg Tablet PO 75 mg DAILY KYM Administration Clotrimazole 1 appl 04/08/20 09:00 04/08/20 08:33 Clotrimazole 1 % Cream 15 Gm Tube TOPICAL Not Given DAILY [facility] Protocol Cyanocobalamin 1,000 mcg 04/08/20 09:00 04/08/20 08:33 Cyanocobalamin (Vitamin B-12) 1,000 Mcg Tablet PO 1,000 mcg DAILY KYM Administration Dexamethasone Sodium Phosphate 6 mg 04/08/20 09:00 04/08/20 08:32 Dexamethasone Sod Phosphate/Pf 10 Mg/Ml Vial IVPUSH 6 mg DAILY KYM Administration Docusate Sodium 100 mg 04/07/20 18:05 Docusate Sodium 100 Mg Capsule PO DAILY PRN Constipation Folic Acid 1 mg 04/08/20 09:00 04/08/20 08:32 Folic Acid 1 Mg Tablet PO 1 mg DAILY [facility] Administration Hydrochlorothiazide 12.5 mg 04/07/20 21:00 04/08/20 08:32 Hydrochlorothiazide 12.5 Mg Tablet PO 12.5 mg BID [facility] Administration Protocol Insulin Glargine 15 unit 04/08/20 09:00 04/08/20 08:31 Insulin Glargine,Hum.Rec.Anlog 100 Unit/Ml 10 Ml Vial SUBCUT 15 unit DAILY [facility] Administration Insulin Human Lispro 0 unit 04/07/20 18:05 04/08/20 08:31 Insulin Lispro 100 Unit/Ml 3 Ml Vial SUBCUT 4 unit QIDACHS [facility] Administration Protocol Latanoprost 1 drop 04/07/20 21:00 04/07/20 21:35 Latanoprost 0.005 % Ophth Jackeline 2.5 Ml Drops EYE-BOTH Not Given BEDTIME [facility] Lisinopril 20 mg 04/07/20 21:00 04/08/20 08:32 Lisinopril 20 Mg Tablet PO 20 mg BID [facility] Administration Protocol Ondansetron HCl 4 mg 04/07/20 18:05 Ondansetron Hcl 4 Mg/2 Ml Vial IVPUSH Q8H PRN Nausea and Vomiting Pharmacy Consult 1 each 04/07/20 14:47 Consult Rx Perform Med Rec MISCELLANE ONCE PRN Consult order Sodium Chloride 3 ml 04/07/20 18:05 04/08/20 08:31 0.9 % Sodium Chloride Flush 3 Ml Syringe IVFLUSH 3 ml QSHIFT [facility] Administration Tolterodine Tartrate 4 mg 04/08/20 09:00 04/08/20 08:33 Tolterodine Tartrate La 4 Mg Cap.Er.24h PO 4 mg DAILY KYM Administration Zolpidem Tartrate 10 mg 04/07/20 18:05 Zolpidem Tartrate 5 Mg Tablet PO BEDTIME PRN Sleep Labs CBC & Chem 7: 04/08/20 05:51 04/07/20 13:25 Labs: Laboratory Results - last 24 hr 04/07/20 04/07/20 04/07/20 13:25 13:25 13:25 WBC 8.4 RBC 4.35 L Hgb 8.0 L Hct 27.2 L MCV 62.5 L MCH 18.4 L MCHC 29.4 L RDW 21.7 H Plt Count 449 H MPV 9.5 Immature Gran % (Auto) 0.2 Neut % (Auto) 73.3 H Lymph % (Auto) 14.1 L [place] % (Auto) 8.3 Eos % (Auto) 3.9 Baso % (Auto) 0.2 Lymph # (Auto) 1.2 [place] # (Auto) 0.7 Eos # (Auto) 0.3 Baso # (Auto) 0.0 Abs Immat Gran (auto) 0.02 Absolute Neuts (auto) 6.1 Absolute Nucleated RBC 0.000 Nucleated RBC % (auto) 0.0 PT INR APTT D-Dimer VBG pH VBG pCO2 VBG pO2 VBG HCO3 VBG O2 Saturation VBG Base Excess Sodium 139 Potassium 4.6 Chloride 107 Carbon Dioxide 23 Anion Gap 14 BUN 11 Creatinine 0.84 Estim Creat Clear Calc 92.5 Estimated GFR > 60 POC Glucose Random Glucose 112 Estimat Average Glucose Hemoglobin A1c % Lactic Acid 2.1 H* Lactic Acid Fup @ 2Hr Calcium 8.3 L Iron TIBC % Saturation Unsat Iron Binding Ferritin 37 Total Bilirubin 0.3 Direct Bilirubin 0.2 AST 28 ALT 11 Alkaline Phosphatase 121 H Lactate Dehydrogenase 368 H Troponin I High Sens C-Reactive Protein 5.55 H B-Natriuretic Peptide Total Protein 7.0 Albumin 3.7 Procalcitonin Stool Occult Blood COVID-19 ([facility]) COVID-19 Clin Com Blood Type Antibody Screen Crossmatch 04/07/20 04/07/20 04/07/20 13:25 13:25 13:25 WBC RBC Hgb Hct MCV MCH MCHC RDW Plt Count MPV Immature Gran % (Auto) Neut % (Auto) Lymph % (Auto) [place] % (Auto) Eos % (Auto) Baso % (Auto) Lymph # (Auto) [place] # (Auto) Eos # (Auto) Baso # (Auto) Abs Immat Gran (auto) Absolute Neuts (auto) Absolute Nucleated RBC Nucleated RBC % (auto) PT 13.5 H INR 1.1 APTT 32.8 D-Dimer 246 VBG pH VBG pCO2 VBG pO2 VBG HCO3 VBG O2 Saturation VBG Base Excess Sodium Potassium Chloride Carbon Dioxide Anion Gap BUN Creatinine Estim Creat Clear Calc Estimated GFR POC Glucose Random Glucose Estimat Average Glucose Hemoglobin A1c % Lactic Acid Lactic Acid Fup @ 2Hr Calcium Iron TIBC % Saturation Unsat Iron Binding Ferritin Cancelled Total Bilirubin Direct Bilirubin AST ALT Alkaline Phosphatase Lactate Dehydrogenase Troponin I High Sens 4.2 C-Reactive Protein B-Natriuretic Peptide 51 Total Protein Albumin Procalcitonin Stool Occult Blood COVID-19 ([facility]) COVID-[employer] Com Blood Type Antibody Screen Crossmatch 04/07/20 04/07/20 04/07/20 13:25 13:25 14:45 WBC RBC Hgb Hct MCV MCH MCHC RDW Plt Count MPV Immature Gran % (Auto) Neut % (Auto) Lymph % (Auto) [place] % (Auto) Eos % (Auto) Baso % (Auto) Lymph # (Auto) [place] # (Auto) Eos # (Auto) Baso # (Auto) Abs Immat Gran (auto) Absolute Neuts (auto) Absolute Nucleated RBC Nucleated RBC % (auto) PT INR APTT D-Dimer VBG pH VBG pCO2 VBG pO2 VBG HCO3 VBG O2 Saturation VBG Base Excess Sodium Potassium Chloride Carbon Dioxide Anion Gap BUN Creatinine Estim Creat Clear Calc Estimated GFR POC Glucose Random Glucose Estimat Average Glucose Hemoglobin A1c % Lactic Acid Lactic Acid Fup @ 2Hr Calcium Iron 21 L TIBC 364 % Saturation 6 L Unsat Iron Binding 343 Ferritin Total Bilirubin Direct Bilirubin AST ALT Alkaline Phosphatase Lactate Dehydrogenase Troponin I High Sens C-Reactive Protein B-Natriuretic Peptide Total Protein Albumin Procalcitonin 0.03 Stool Occult Blood COVID-19 ([facility]) Positive A COVID-19 [employer] Com See Note Blood Type Antibody Screen Crossmatch 04/07/20 04/07/20 04/07/20 14:45 15:24 15:25 WBC RBC Hgb 7.7 L Hct 26.1 L MCV MCH MCHC RDW Plt Count MPV Immature Gran % (Auto) Neut % (Auto) Lymph % (Auto) [place] % (Auto) Eos % (Auto) Baso % (Auto) Lymph # (Auto) [place] # (Auto) Eos # (Auto) Baso # (Auto) Abs Immat Gran (auto) Absolute Neuts (auto) Absolute Nucleated RBC Nucleated RBC % (auto) PT INR APTT D-Dimer VBG pH 7.39 VBG pCO2 29 VBG pO2 47 VBG HCO3 18 VBG O2 Saturation 74.0 VBG Base Excess -5.6 Sodium Potassium Chloride Carbon Dioxide Anion Gap BUN Creatinine Estim Creat Clear Calc Estimated GFR POC Glucose Random Glucose Estimat Average Glucose Hemoglobin A1c % Lactic Acid Lactic Acid Fup @ 2Hr Calcium Iron TIBC % Saturation Unsat Iron Binding Ferritin Total Bilirubin Direct Bilirubin AST ALT Alkaline Phosphatase Lactate Dehydrogenase Troponin I High Sens C-Reactive Protein B-Natriuretic Peptide Total Protein Albumin Procalcitonin Stool Occult Blood NEG COVID-19 ([facility]) COVID-19 [facility] Blood Type Antibody Screen Crossmatch 04/07/20 04/07/20 04/07/20 15:45 15:45 17:26 WBC RBC Hgb Hct MCV MCH MCHC RDW Plt Count MPV Immature Gran % (Auto) Neut % (Auto) Lymph % (Auto) [place] % (Auto) Eos % (Auto) Baso % (Auto) Lymph # (Auto) [place] # (Auto) Eos # (Auto) Baso # (Auto) Abs Immat Gran (auto) Absolute Neuts (auto) Absolute Nucleated RBC Nucleated RBC % (auto) PT INR APTT D-Dimer VBG pH VBG pCO2 VBG pO2 VBG HCO3 VBG O2 Saturation VBG Base Excess Sodium Potassium Chloride Carbon Dioxide Anion Gap BUN Creatinine Estim Creat Clear Calc Estimated GFR POC Glucose 140 H Random Glucose Estimat Average Glucose Hemoglobin A1c % Lactic Acid Lactic Acid Fup @ 2Hr 1.8 Calcium Iron TIBC % Saturation Unsat Iron Binding Ferritin Total Bilirubin Direct Bilirubin AST ALT Alkaline Phosphatase Lactate Dehydrogenase Troponin I High Sens C-Reactive Protein B-Natriuretic Peptide Total Protein Albumin Procalcitonin Stool Occult Blood COVID-19 ([facility]) COVID-19 [employer] Com Blood Type O Positive Antibody Screen NEGATIVE Crossmatch See Detail 04/07/20 04/08/20 04/08/20 20:49 05:51 05:51 WBC 8.1 RBC 4.58 L Hgb 9.0 L Hct 30.0 L MCV 65.5 L MCH 19.7 L MCHC 30.0 L RDW 25.7 H Plt Count 373 MPV Not Reportable Immature Gran % (Auto) 0.5 H Neut % (Auto) 83.9 H Lymph % (Auto) 8.7 L [place] % (Auto) 6.8 Eos % (Auto) 0.0 Baso % (Auto) 0.1 Lymph # (Auto) 0.7 L [place] # (Auto) 0.6 Eos # (Auto) 0.0 Baso # (Auto) 0.0 Abs Immat Gran (auto) 0.04 H Absolute Neuts (auto) 6.8 Absolute Nucleated RBC 0.000 Nucleated RBC % (auto) 0.0 PT INR APTT D-Dimer VBG pH VBG pCO2 VBG pO2 VBG HCO3 VBG O2 Saturation VBG Base Excess Sodium Potassium Chloride Carbon Dioxide Anion Gap BUN Creatinine Estim Creat Clear Calc Estimated GFR POC Glucose 285 H Random Glucose Estimat Average Glucose 151 Hemoglobin A1c % 6.9 Lactic Acid Lactic Acid Fup @ 2Hr Calcium Iron TIBC % Saturation Unsat Iron Binding Ferritin Total Bilirubin Direct Bilirubin AST ALT Alkaline Phosphatase Lactate Dehydrogenase Troponin I High Sens C-Reactive Protein B-Natriuretic Peptide Total Protein Albumin Procalcitonin Stool Occult Blood COVID-19 ([facility]) COVID-19 Clin Com Blood Type Antibody Screen Crossmatch 04/08/20 07:46 WBC RBC Hgb Hct MCV MCH MCHC RDW Plt Count MPV Immature Gran % (Auto) Neut % (Auto) Lymph % (Auto) [place] % (Auto) Eos % (Auto) Baso % (Auto) Lymph # (Auto) [place] # (Auto) Eos # (Auto) Baso # (Auto) Abs Immat Gran (auto) Absolute Neuts (auto) Absolute Nucleated RBC Nucleated RBC % (auto) PT INR APTT D-Dimer VBG pH VBG pCO2 VBG pO2 VBG HCO3 VBG O2 Saturation VBG Base Excess Sodium Potassium Chloride Carbon Dioxide Anion Gap BUN Creatinine Estim Creat Clear Calc Estimated GFR POC Glucose 212 H Random Glucose Estimat Average Glucose Hemoglobin A1c % Lactic Acid Lactic Acid Fup @ 2Hr Calcium Iron TIBC % Saturation Unsat Iron Binding Ferritin Total Bilirubin Direct Bilirubin AST ALT Alkaline Phosphatase Lactate Dehydrogenase Troponin I High Sens C-Reactive Protein B-Natriuretic Peptide Total Protein Albumin Procalcitonin Stool Occult Blood COVID-19 ([facility]) COVID-19 Clin Com Blood Type Antibody Screen Crossmatch Assessment and Plan (1) 2019 novel coronavirus–infected pneumonia (NCIP)#[id number];infected pneumonia (NCIP): Status: Acute (2) Hypoxia: Status: Acute (3) Anemia: Status: Acute Assessment and Plan: hospital d#2 70yo M with DM2, HTN, HLD, PVD, MASSIEL admitted for hypoxia due to COVID-19 pneumonia presented on d#10 of illness # COVID-19 pneumonia - dexamethasone d#2, ID consult though may be out of remdesivir window, trend inflammatory markers # acute hypoxic respiratory failure - supplemental O2, wean as tolerated, encourage awake proning # Fe deficiency anemia - transfused 2u pRBCs. FOBT negative. continue Fe supplementation # HTN - continue lisinopril, HCTZ, diltiazem # PVD - continue DAPT, cilostazol, statin # HLD - continue statin # DM2, A1c 6.9 - correction-dose lispro # depression - continue bupropion # VTE ppx - LMWH
[2020-04-08 11:43] LABS: Glucose, Whole Blood 249 mg/dL (60-115)
[2020-04-08] MEDS: Enoxaparin Sodium 40 MG/0.4 ML SYRINGE SUBCUT (12:05)
--- NOTE | 2020-04-08 16:41 | P.CNID_ITS ---
History of Present Illness Data of Consult Service Date: 04/08/20 Requesting physician: Adam Malik Primary Care Provider: Unknown Physician HPI Reason for consult: shortness of breath He has been ill for a week with shortness of breath COVID test positive now He has oxygen saturation in 80s Review of Systems Review of Systems: Yes all other systems are reviewed and are negative PMF Past Medical History Medical History Diabetes HLD (hyperlipidemia) HTN (hypertension) PVD (peripheral vascular disease) Functional capacity: independent ambulation Family History Family history: reviewed and not pertinent Surgical History Surgical History S/P femoral-popliteal bypass surgery Social History Social History Household Members: Spouse Housing: House Do you presently have visiting nurse or other home services: No Smoking Status: Former smoker Smoked in Last 30 Days: No Use of substances other than those prescribed or required for medical reasons: No Have you been hit, kicked, punched, or otherwise hurt by someone within the past year? If so, by whom?: No Do you feel safe in your current relationship?: Yes Is there a partner from a previous relationship who is making you feel unsafe now?: No Are you made to feel afraid or neglected: No Advance Directives: No Advance Directives Information Provided: No Do you have thoughts of harming others: None Do you have a plan to hurt others: No Plan Recently lost weight without trying: No service: No Current occupational status: disabled Meds Allergies Allergy/AdvReac Type Severity Reaction Status Date / Time No Known Allergies Allergy Unverified 11/12/19 15:36 [No Known Allergies*] pollen Allergy Unknown Uncoded 02/05/17 00:00 Active Medications: Current Medications Generic Name Dose Route Start Last Admin Trade Name Freq PRN Reason Stop Dose Admin Acetaminophen 650 mg 04/07/20 18:05 Acetaminophen 325 Mg Tablet PO Q6H PRN Pain, Mild (Pain Scale 1-3) Albuterol Sulfate 2 puff 04/07/20 18:05 Albuterol Sulfate 90 Mcg 8 Gm Inhaler INHALE Q4H PRN Shortness of Breath Aspirin 81 mg 04/08/20 09:00 04/08/20 08:32 Aspirin Enteric Coated 81 Mg Tablet. PO 81 mg DAILY [facility] Administration Atorvastatin Calcium 80 mg 04/07/20 21:00 04/07/20 21:22 Atorvastatin Calcium 80 Mg Tablet PO 80 mg BEDTIME [facility] Administration Betamethasone Dipropion Augmented 1 appl 04/08/20 06:17 Betamethasone Dip Aug 0.05% Cr 15 Gm Tube TOPICAL BID PRN Rash Bupropion HCl 300 mg 04/08/20 09:00 04/08/20 08:33 Bupropion Hcl Xl 300 Mg Tab.Er.24h PO 300 mg DAILY [facility] Administration Cilostazol 100 mg 04/07/20 21:00 04/08/20 08:32 Cilostazol 100 Mg Tablet PO 100 mg BID [facility] Administration Clopidogrel Bisulfate 75 mg 04/08/20 09:00 04/08/20 08:33 Clopidogrel Bisulfate 75 Mg Tablet PO 75 mg DAILY [facility] Administration Clotrimazole 1 appl 04/08/20 09:00 04/08/20 08:33 Clotrimazole 1 % Cream 15 Gm Tube TOPICAL Not Given DAILY [facility] Protocol Cyanocobalamin 1,000 mcg 04/08/20 09:00 04/08/20 08:33 Cyanocobalamin (Vitamin B-12) 1,000 Mcg Tablet PO 1,000 mcg DAILY [facility] Administration Dexamethasone Sodium Phosphate 6 mg 04/08/20 09:00 04/08/20 08:32 Dexamethasone Sod Phosphate/Pf 10 Mg/Ml Vial IVPUSH 6 mg DAILY [facility] Administration Diltiazem HCl 300 mg 04/09/20 09:00 Diltiazem Hcl Cd 300 Mg Cap.Er.24h PO DAILY [facility] Diltiazem HCl 120 mg 04/09/20 09:00 Diltiazem Hcl Cd 120 Mg Cap.Er.Deg PO DAILY [facility] Protocol Docusate Sodium 100 mg 04/07/20 18:05 Docusate Sodium 100 Mg Capsule PO DAILY PRN Constipation Enoxaparin Sodium 40 mg 04/08/20 12:00 04/08/20 12:05 Enoxaparin Sodium 40 Mg/0.4 Ml Syringe SUBCUT 40 mg Q24H [facility] Administration Ferrous Sulfate 324 mg 04/08/20 17:00 Ferrous Sulfate 324 Mg Tablet. PO BIDWM [facility] Folic Acid 1 mg 04/08/20 09:00 04/08/20 08:32 Folic Acid 1 Mg Tablet PO 1 mg DAILY [facility] Administration Hydrochlorothiazide 12.5 mg 04/07/20 21:00 04/08/20 08:32 Hydrochlorothiazide 12.5 Mg Tablet PO 12.5 mg BID [facility] Administration Protocol Insulin Glargine 15 unit 04/08/20 09:00 04/08/20 08:31 Insulin Glargine,Hum.Rec.Anlog 100 Unit/Ml 10 Ml Vial SUBCUT 15 unit DAILY [facility] Administration Insulin Human Lispro 0 unit 04/07/20 18:05 04/08/20 12:04 Insulin Lispro 100 Unit/Ml 3 Ml Vial SUBCUT 4 unit QIDACHS [facility] Administration Protocol Latanoprost 1 drop 04/07/20 21:00 04/07/20 21:35 Latanoprost 0.005 % Ophth Jackeline 2.5 Ml Drops EYE-BOTH Not Given BEDTIME [facility] Lisinopril 20 mg 04/07/20 21:00 04/08/20 08:32 Lisinopril 20 Mg Tablet PO 20 mg BID [facility] Administration Protocol Ondansetron HCl 4 mg 04/07/20 18:05 Ondansetron Hcl 4 Mg/2 Ml Vial IVPUSH Q8H PRN Nausea and Vomiting Pharmacy Consult 1 each 04/07/20 14:47 Consult Rx Perform Med Rec MISCELLANE ONCE PRN Consult order Sodium Chloride 3 ml 04/07/20 18:05 04/08/20 16:14 0.9 % Sodium Chloride Flush 3 Ml Syringe IVFLUSH 3 ml QSHIFT [facility] Administration Tolterodine Tartrate 4 mg 04/08/20 09:00 04/08/20 08:33 Tolterodine Tartrate La 4 Mg Cap.Er.24h PO 4 mg DAILY [facility] Administration Zolpidem Tartrate 10 mg 04/07/20 18:05 Zolpidem Tartrate 5 Mg Tablet PO BEDTIME PRN Sleep Home Medications Medication Instructions Recorded Confirmed Last Taken Type acetaminophen 500 mg PO TID PRN 04/07/20 04/07/20 Unknown History aspirin 81 mg PO DAILY 04/07/20 04/07/20 Unknown History atorvastatin 80 mg PO BEDTIME 04/07/20 04/07/20 Unknown History betamethasone dipropionate 1 appl TOPICAL BID PRN 04/07/20 04/07/20 Unknown History bupropion HCl 300 mg PO DAILY 04/07/20 04/07/20 Unknown History cilostazol 100 mg PO BID 04/07/20 04/07/20 Unknown History clopidogrel 75 mg PO DAILY 04/07/20 04/07/20 Unknown History clotrimazole 1 appl TOPICAL DAILY 04/07/20 04/07/20 Unknown History cyanocobalamin (vitamin B-12) 1,000 mcg PO DAILY 04/07/20 04/07/20 Unknown History diltiazem HCl 420 mg PO DAILY 04/07/20 04/07/20 Unknown History folic acid 1 mg PO DAILY 04/07/20 04/07/20 Unknown History insulin aspart U-100 [Novolog See Rx Instructions .ROUTE .COMPLEX 04/07/20 04/07/20 Unknown History U-100 Insulin aspart] insulin glargine [Lantus U-100 15 unit SUBCUT DAILY 04/07/20 04/07/20 Unknown History Insulin] latanoprost 1 drp OPHTHALMIC (EYE) QPM 04/07/20 04/07/20 Unknown History lisinopril-hydrochlorothiazide 1 tab PO BID 04/07/20 04/07/20 Unknown History tolterodine 4 mg PO DAILY 04/07/20 04/07/20 Unknown History zolpidem 10 mg PO BEDTIME PRN 04/07/20 04/07/20 Unknown History Physical Exam Vital Signs: Vital Signs: Last Vital Signs Temp 95.8 F L 04/08/20 16:00 Pulse 83 04/08/20 16:00 Resp 24 H 04/08/20 16:00 BP 143/70 H 04/08/20 16:00 Pulse Ox 93 04/08/20 16:00 Body Mass Index 28.5 Const: General: cooperative HENMT: Head: Yes normal to inspection Mouth: Normal oral and palatal mucosa present Eyes: General: appearance normal, both eyes and all related structures Resp: Effort & Inspection: normal respiratory effort Cardio: Rate: regular rate Rhythm: regular rhythm GI: Palpation (GI): Soft to palpation and nontender Skin: General skin exam: no rashes or lesions noted Extrem: General: Yes normal to inspection Results Labs CBC & Chem 7: 04/08/20 05:51 04/07/20 13:25 Labs: Short CBC 04/07/20 04/08/20 Range/Units 13:25 05:51 WBC 8.1 (4.8-10.8) X10*3/uL Hgb 9.0 L (14.0-18.0) g/dl Hct 30.0 L (42-52) % Plt Count 373 (160-400) X10*3/uL Creatinine 0.84 (0.5-1.4) mg/dL AST 28 (5-37) U/L Assessment and Plan (1) 2019 novel coronavirus–infected pneumonia (NCIP)#8211;infected pneumonia (NCIP): Status: Acute (2) Hypoxia: Problem details: He has COVID within last week He is on oxygen LFTs and renal unremarkable Status: Acute Dexamethasone Remdesivir likely Oxygen support
[2020-04-08 16:52] LABS: Glucose, Whole Blood 210 mg/dL (60-115)
[2020-04-08] MEDS: Ferrous Sulfate 324 MG TABLET.DR PO (17:01)
[2020-04-08 20:43] LABS: Glucose, Whole Blood 166 mg/dL (60-115)
[2020-04-08] MEDS: Remdesivir 200 MG in 0.9 % Sodium Chloride 210 ML 105 MG IV (21:18)
[2020-04-08] MEDS: Atorvastatin Calcium 80 MG TABLET PO (21:18)
[2020-04-08] MEDS: Latanoprost 0.005 % Ophth Sol 2.5 ML DROPS 1 DROP EYE-BOTH (21:28)
[2020-04-09] VITALS (8 sets, daily range): BP systolic 126–165; BP diastolic 65–83; PULSE 74–89; RESP 18–20; TEMP 36–37.4; O2SAT 90–95
[2020-04-09 06:36] LABS: Basophils Percent Auto 0.2 % (0-2); Eosinophils Percent Auto 0.3 % (0-4); MANUAL DIFF FLAG SCAN; Mean Corpuscular Hemoglobin 20.1 pg (27.0-33.0); Mean Platelet Volume 9.9 fL (9.4-12.4); SCAN SMEAR FLAG 1
[2020-04-09 06:38] LABS: Hematocrit 29.5 % (42-52); Hemoglobin 9.1 g/dl (14.0-18.0); Imm Gran Abs Auto 0.08 X10*3/uL (0.00-0.03); Imm Gran Pct Auto 0.7 % (0.0-0.4); Lymphocytes Absolute Auto 1.3 X10*3/uL (1.2-4.9); Lymphocytes Percent Auto 12.2 % (20-40); Mean Corpuscular HGB Conc 30.8 g/dl (31.0-36.0); Mean Corpuscular Volume 65.1 fL (80-98); NRBC Pct Auto 0.2 /100WBC (0.0-0.2); Neutrophils Absolute Auto 8.4 X10*3/uL (2.0-8.3); Neutrophils Percent Auto 77.6 % (45-73); Platelet Count 374 X10*3/uL (160-400); Red Blood Count 4.53 X10*6/uL (4.60-5.80); Red Cell Distribution Width 25.7 % (11.0-16.0); White Blood Count 10.9 X10*3/uL (4.8-10.8)
[2020-04-09 07:00] LABS: PLT ABN DIST 1
[2020-04-09 07:08] LABS: Alanine Aminotransferase 16 U/L (0-40); Albumin Level 3.4 g/dL (3.5-5.0); Alkaline Phosphatase 105 U/L (39-117); Anion Gap 13 (12-20); Aspartate Amino Transferase 34 U/L (5-37); Bilirubin Total 0.7 mg/dL (0.0-1.0); Blood Urea Nitrogen 17 mg/dL (9-16); Calcium 8.2 mg/dL (8.4-10.2); Carbon Dioxide 25 mmol/L (22-29); Chloride 101 mmol/L (96-108); Creatinine Clr Calc Pharmacy 82.7; Estimated Glomerular Filt Rate > 60; Glucose Random 109 mg/dL (60-115); Lactate Dehydrogenase 397 U/L (118-273); Potassium 4.3 mmol/L (3.3-5.1); Sodium 135 mmol/L (135-145); Total Protein 6.5 g/dL (6.5-8.0)
[2020-04-09 07:17] LABS: Procalcitonin 0.05 ng/mL
[2020-04-09 07:19] LABS: D Dimer 310 NG/ML
[2020-04-09 07:23] LABS: Ferritin 63 ng/mL (20-250)
[2020-04-09 07:26] LABS: Glucose, Whole Blood 130 mg/dL (60-115)
[2020-04-09 07:51] LABS: SLIDE REVIEW VERIFIED
[2020-04-09] MEDS: 0.9 % Sodium Chloride Flush 3 ML SYRINGE IVFLUSH ×3 (11:02→19:57)
[2020-04-09] MEDS: Insulin Glargine,Hum.rec.anlog 100 UNIT/ML 10 ML VIAL 15 UNIT SUBCUT (11:04)
[2020-04-09] MEDS: Aspirin Enteric Coated 81 MG TABLET.DR PO (11:05)
[2020-04-09] MEDS: buPROPion HCl XL 300 MG TAB.ER.24H PO (11:05)
[2020-04-09] MEDS: Acetaminophen 325 MG TABLET 650 MG PO (11:05)
[2020-04-09] MEDS: hydroCHLOROthiazide 12.5 MG TABLET PO ×2 (11:05→19:46)
[2020-04-09] MEDS: Ferrous Sulfate 324 MG TABLET.DR PO ×2 (11:05→17:31)
[2020-04-09] MEDS: Clopidogrel Bisulfate 75 MG TABLET PO (11:05)
[2020-04-09] MEDS: Folic Acid 1 MG TABLET PO (11:05)
[2020-04-09] MEDS: cilostazoL 100 MG TABLET PO ×2 (11:06→19:46)
[2020-04-09] MEDS: Cyanocobalamin (Vitamin B-12) 1,000 MCG TABLET 1000 MCG PO (11:06)
[2020-04-09] MEDS: Tolterodine Tartrate LA 4 MG CAP.ER.24H PO (11:06)
[2020-04-09] MEDS: dilTIAZem HCL CD 300 MG CAP.ER.24H PO (11:09)
[2020-04-09] MEDS: dilTIAZem HCL CD 120 MG CAP.ER.DEG PO (11:10)
[2020-04-09] MEDS: Clotrimazole 1 % Cream 15 GM TUBE 1 APPL TOPICAL (11:10)
[2020-04-09 11:23] LABS: Glucose, Whole Blood 134 mg/dL (60-115)
--- NOTE | 2020-04-09 13:12 | P.PNIM_ITS ---
Subjective Subjective Date of Service: 04/09/20 Interval History: denies complaints but looks more dyspneic; O2 requirement up to 15 Lpm via Ybarra device no fever no chest pain Physical Exam Vital Signs: Vital Signs: Last Vital Signs Temp 97.8 F 04/09/20 11:09 Pulse 83 04/09/20 11:10 Resp 20 04/09/20 11:09 BP 165/83 H 04/09/20 11:10 Pulse Ox 95 04/09/20 11:09 Body Mass Index 28.5 Gen: mild respiratory distress HEENT: sclera anicteric, moist mucus membranes Neck: supple Lungs: mild respiratory distress, auscultation deferred due to COVID-19 Heart: normal peripheral pulses Abd: soft, non-tender, non-distended Ext: no cyanosis, clubbing, or edema Skin: warm/well-perfused Neuro: alert and oriented x3, no focal findings Psych: appropriate affect Objective Data Current Medications Generic Name Dose Route Start Last Admin Trade Name Freq PRN Reason Stop Dose Admin Acetaminophen 650 mg 04/07/20 18:05 04/09/20 11:05 Acetaminophen 325 Mg Tablet PO 650 mg Q6H PRN Administration Pain, Mild (Pain Scale 1-3) Albuterol Sulfate 2 puff 04/07/20 18:05 Albuterol Sulfate 90 Mcg 8 Gm Inhaler INHALE Q4H PRN Shortness of Breath Aspirin 81 mg 04/08/20 09:00 04/09/20 11:05 Aspirin Enteric Coated 81 Mg Tablet.Dr PO 81 mg DAILY [facility] Administration Atorvastatin Calcium 80 mg 04/07/20 21:00 04/08/20 21:18 Atorvastatin Calcium 80 Mg Tablet PO 80 mg BEDTIME [facility] Administration Betamethasone Dipropion Augmented 1 appl 04/08/20 06:17 Betamethasone Dip Aug 0.05% Cr 15 Gm Tube TOPICAL BID PRN Rash Bupropion HCl 300 mg 04/08/20 09:00 04/09/20 11:05 Bupropion Hcl Xl 300 Mg Tab.Er.24h PO 300 mg DAILY [facility] Administration Cilostazol 100 mg 04/07/20 21:00 04/09/20 11:06 Cilostazol 100 Mg Tablet PO 100 mg BID [facility] Administration Clopidogrel Bisulfate 75 mg 04/08/20 09:00 04/09/20 11:05 Clopidogrel Bisulfate 75 Mg Tablet PO 75 mg DAILY [facility] Administration Clotrimazole 1 appl 04/08/20 09:00 04/09/20 11:10 Clotrimazole 1 % Cream 15 Gm Tube TOPICAL 1 appl DAILY [facility] Administration Protocol Cyanocobalamin 1,000 mcg 04/08/20 09:00 04/09/20 11:06 Cyanocobalamin (Vitamin B-12) 1,000 Mcg Tablet PO 1,000 mcg DAILY [facility] Administration Dexamethasone Sodium Phosphate 6 mg 04/08/20 09:00 04/09/20 11:03 Dexamethasone Sod Phosphate/Pf 10 Mg/Ml Vial IVPUSH 6 mg DAILY [facility] Administration Diltiazem HCl 300 mg 04/09/20 09:00 04/09/20 11:09 Diltiazem Hcl Cd 300 Mg Cap.Er.24h PO 300 mg DAILY [facility] Administration Diltiazem HCl 120 mg 04/09/20 09:00 04/09/20 11:10 Diltiazem Hcl Cd 120 Mg Cap.Er.Deg PO 120 mg DAILY [facility] Administration Protocol Docusate Sodium 100 mg 04/07/20 18:05 Docusate Sodium 100 Mg Capsule PO DAILY PRN Constipation Enoxaparin Sodium 40 mg 04/08/20 12:00 04/08/20 12:05 Enoxaparin Sodium 40 Mg/0.4 Ml Syringe SUBCUT 40 mg Q24H [facility] Administration Ferrous Sulfate 324 mg 04/08/20 17:00 04/09/20 11:05 Ferrous Sulfate 324 Mg Tablet.Dr PO 324 mg BIDWM [facility] Administration Folic Acid 1 mg 04/08/20 09:00 04/09/20 11:05 Folic Acid 1 Mg Tablet PO 1 mg DAILY [facility] Administration Hydrochlorothiazide 12.5 mg 04/07/20 21:00 04/09/20 11:05 Hydrochlorothiazide 12.5 Mg Tablet PO 12.5 mg BID [facility] Administration Protocol Remdesivir 100 mg/ Sodium 230 mls @ 115 mls/hr 04/09/20 20:00 Chloride IV 04/12/20 21:59 Q24H [facility] Insulin Glargine 15 unit 04/08/20 09:00 04/09/20 11:04 Insulin Glargine,Hum.Rec.Anlog 100 Unit/Ml 10 Ml Vial SUBCUT 15 unit DAILY [facility] Administration Insulin Human Lispro 0 unit 04/07/20 18:05 04/09/20 11:32 Insulin Lispro 100 Unit/Ml 3 Ml Vial SUBCUT Not Given QIDACHS [facility] Protocol Latanoprost 1 drop 04/07/20 21:00 04/08/20 21:28 Latanoprost 0.005 % Ophth Jackeline 2.5 Ml Drops EYE-BOTH 1 drop BEDTIME [facility] Administration Lisinopril 20 mg 04/07/20 21:00 04/09/20 11:07 Lisinopril 20 Mg Tablet PO 20 mg BID [facility] Administration Protocol Ondansetron HCl 4 mg 04/07/20 18:05 Ondansetron Hcl 4 Mg/2 Ml Vial IVPUSH Q8H PRN Nausea and Vomiting Pharmacy Consult 1 each 04/07/20 14:47 Consult Rx Perform Med Rec MISCELLANE ONCE PRN Consult order Sodium Chloride 3 ml 04/07/20 18:05 04/09/20 11:02 0.9 % Sodium Chloride Flush 3 Ml Syringe IVFLUSH 3 ml QSHIFT [facility] Administration Tolterodine Tartrate 4 mg 04/08/20 09:00 04/09/20 11:06 Tolterodine Tartrate La 4 Mg Cap.Er.24h PO 4 mg DAILY [facility] Administration Zolpidem Tartrate 10 mg 04/07/20 18:05 Zolpidem Tartrate 5 Mg Tablet PO BEDTIME PRN Sleep Labs CBC & Chem 7: 04/09/20 06:09 04/09/20 06:09 Labs: Laboratory Results - last 24 hr 04/08/20 04/08/20 04/09/20 16:03 19:49 06:09 WBC 10.9 H RBC 4.53 L Hgb 9.1 L Hct 29.5 L MCV 65.1 L MCH 20.1 L MCHC 30.8 L RDW 25.7 H Plt Count 374 MPV 9.9 Immature Gran % (Auto) 0.7 H Neut % (Auto) 77.6 H Lymph % (Auto) 12.2 L [place] % (Auto) 9.0 Eos % (Auto) 0.3 Baso % (Auto) 0.2 Lymph # (Auto) 1.3 [place] # (Auto) 1.0 Eos # (Auto) 0.0 Baso # (Auto) 0.0 Abs Immat Gran (auto) 0.08 H Absolute Neuts (auto) 8.4 H Absolute Nucleated RBC 0.020 H Nucleated RBC % (auto) 0.2 Smear Tech's Comments VERIFIED D-Dimer Sodium Potassium Chloride Carbon Dioxide Anion Gap BUN Creatinine Estim Creat Clear Calc Estimated GFR POC Glucose 210 H 166 H Random Glucose Calcium Ferritin Total Bilirubin AST ALT Alkaline Phosphatase Lactate Dehydrogenase C-Reactive Protein Total Protein Albumin Procalcitonin 04/09/20 04/09/20 04/09/20 06:09 06:09 06:09 WBC RBC Hgb Hct MCV MCH MCHC RDW Plt Count MPV Immature Gran % (Auto) Neut % (Auto) Lymph % (Auto) [place] % (Auto) Eos % (Auto) Baso % (Auto) Lymph # (Auto) [place] # (Auto) Eos # (Auto) Baso # (Auto) Abs Immat Gran (auto) Absolute Neuts (auto) Absolute Nucleated RBC Nucleated RBC % (auto) Smear Tech's Comments D-Dimer 310 Sodium 135 Potassium 4.3 Chloride 101 Carbon Dioxide 25 Anion Gap 13 BUN 17 H D Creatinine 0.94 Estim Creat Clear Calc 82.7 Estimated GFR > 60 POC Glucose Random Glucose 109 Calcium 8.2 L Ferritin 63 Total Bilirubin 0.7 AST 34 ALT 16 Alkaline Phosphatase 105 Lactate Dehydrogenase 397 H C-Reactive Protein 5.80 H Total Protein 6.5 Albumin 3.4 L Procalcitonin 0.05 04/09/20 04/09/20 07:12 11:09 WBC RBC Hgb Hct MCV MCH MCHC RDW Plt Count MPV Immature Gran % (Auto) Neut % (Auto) Lymph % (Auto) [place] % (Auto) Eos % (Auto) Baso % (Auto) Lymph # (Auto) [place] # (Auto) Eos # (Auto) Baso # (Auto) Abs Immat Gran (auto) Absolute Neuts (auto) Absolute Nucleated RBC Nucleated RBC % (auto) Smear Tech's Comments D-Dimer Sodium Potassium Chloride Carbon Dioxide Anion Gap BUN Creatinine Estim Creat Clear Calc Estimated GFR POC Glucose 130 H 134 H Random Glucose Calcium Ferritin Total Bilirubin AST ALT Alkaline Phosphatase Lactate Dehydrogenase C-Reactive Protein Total Protein Albumin Procalcitonin Microbiology Microbiology Results: Microbiology 04/07/20 14:45 Blood - Venous Blood Culture - Preliminary No growth after 24 hours. 04/07/20 14:37 Blood - Venous Blood Culture - Preliminary No growth after 24 hours. Assessment and Plan (1) 2019 novel coronavirus–infected pneumonia (NCIP)#8211;infected pneumon ia (NCIP): Status: Acute (2) Hypoxia: Status: Acute (3) Anemia: Status: Acute Assessment and Plan: hospital d#3 70yo M with DM2, HTN, HLD, PVD, MASSIEL admitted for hypoxia due to COVID-19 pneumonia presented on d#10 of illness # COVID-19 pneumonia - dexamethasone d#3/, remdesivir d#2, ID consult done, trend inflammatory markers # acute hypoxic respiratory failure - supplemental O2, wean as tolerated, encourage awake proning # Fe deficiency anemia - Hb stable p 2u pRBCs. FOBT negative. continue Fe supplementation # HTN - continue lisinopril, HCTZ, diltiazem # PVD - continue DAPT, cilostazol, statin # HLD - continue statin # DM2, A1c 6.9 - correction-dose lispro # depression - continue bupropion # VTE ppx - LMWH I updated the pt's Cira by phone,
[2020-04-09] MEDS: Enoxaparin Sodium 40 MG/0.4 ML SYRINGE SUBCUT (13:49)
[2020-04-09 16:12] LABS: Glucose, Whole Blood 287 mg/dL (60-115)
[2020-04-09] MEDS: Insulin Lispro 100 UNIT/ML 3 ML VIAL SUBCUT ×2 (17:31→19:55)
[2020-04-09] MEDS: Remdesivir 100 MG in 0.9 % Sodium Chloride 230 ML 115 MG IV (19:38)
[2020-04-09] MEDS: Melatonin 3 MG TABLET PO (19:45)
[2020-04-09] MEDS: Atorvastatin Calcium 80 MG TABLET PO (19:45)
[2020-04-09] MEDS: Latanoprost 0.005 % Ophth Sol 2.5 ML DROPS 1 DROP EYE-BOTH (19:46)
[2020-04-09 19:55] LABS: Glucose, Whole Blood 292 mg/dL (60-115)
[2020-04-10] VITALS (14 sets, daily range): BP systolic 117–154; BP diastolic 57–83; PULSE 61–93; RESP 15–28; TEMP 36.6–37; O2SAT 91–95
[2020-04-10 07:02] LABS: Hemoglobin 9.3 g/dl (14.0-18.0); MANUAL DIFF FLAG SCAN; Mean Platelet Volume 10.1 fL (9.4-12.4); Red Blood Count 4.64 X10*6/uL (4.60-5.80); SCAN SMEAR FLAG 1
[2020-04-10 07:03] LABS: Basophils Percent Auto 0.1 % (0-2); Hematocrit 30.6 % (42-52); Imm Gran Abs Auto 0.04 X10*3/uL (0.00-0.03); Imm Gran Pct Auto 0.4 % (0.0-0.4); Lymphocytes Absolute Auto 0.7 X10*3/uL (1.2-4.9); Lymphocytes Percent Auto 5.9 % (20-40); Mean Corpuscular HGB Conc 30.4 g/dl (31.0-36.0); Mean Corpuscular Volume 65.9 fL (80-98); Monocytes Absolute Auto 1.1 X10*3/uL (0.1-1.2); Monocytes Percent Auto 9.5 % (2-11); Neutrophils Absolute Auto 9.4 X10*3/uL (2.0-8.3); Neutrophils Percent Auto 84.1 % (45-73); Platelet Count 386 X10*3/uL (160-400); Red Cell Distribution Width 26.2 % (11.0-16.0); White Blood Count 11.2 X10*3/uL (4.8-10.8)
[2020-04-10 07:24] LABS: PLT ABN DIST 1
[2020-04-10 07:43] LABS: SLIDE REVIEW VERIFIED
[2020-04-10 07:50] LABS: Alanine Aminotransferase 15 U/L (0-40); Albumin Level 3.5 g/dL (3.5-5.0); Alkaline Phosphatase 100 U/L (39-117); Anion Gap 15 (12-20); Aspartate Amino Transferase 20 U/L (5-37); Bilirubin Total 0.6 mg/dL (0.0-1.0); Blood Urea Nitrogen 24 mg/dL (9-16); Calcium 8.5 mg/dL (8.4-10.2); Carbon Dioxide 25 mmol/L (22-29); Chloride 100 mmol/L (96-108); Creatinine Clr Calc Pharmacy 88.3; Estimated Glomerular Filt Rate > 60; Glucose Random 197 mg/dL (60-115); Potassium 4.6 mmol/L (3.3-5.1); Sodium 135 mmol/L (135-145); Total Protein 6.7 g/dL (6.5-8.0)
[2020-04-10 07:52] LABS: Glucose, Whole Blood 174 mg/dL (60-115)
[2020-04-10] MEDS: Insulin Lispro 100 UNIT/ML 3 ML VIAL SUBCUT ×4 (09:19→20:19)
[2020-04-10] MEDS: Insulin Glargine,Hum.rec.anlog 100 UNIT/ML 10 ML VIAL 15 UNIT SUBCUT (09:19)
[2020-04-10] MEDS: dilTIAZem HCL CD 120 MG CAP.ER.DEG PO (09:20)
[2020-04-10] MEDS: dilTIAZem HCL CD 300 MG CAP.ER.24H PO (09:20)
[2020-04-10] MEDS: 0.9 % Sodium Chloride Flush 3 ML SYRINGE IVFLUSH ×3 (09:20→20:15)
[2020-04-10] MEDS: buPROPion HCl XL 300 MG TAB.ER.24H PO (09:21)
[2020-04-10] MEDS: Tolterodine Tartrate LA 4 MG CAP.ER.24H PO (09:21)
[2020-04-10] MEDS: Aspirin Enteric Coated 81 MG TABLET.DR PO (09:21)
[2020-04-10] MEDS: Ferrous Sulfate 324 MG TABLET.DR PO ×2 (09:21→16:29)
[2020-04-10] MEDS: cilostazoL 100 MG TABLET PO ×2 (09:21→20:15)
[2020-04-10] MEDS: Clotrimazole 1 % Cream 15 GM TUBE 1 APPL TOPICAL (09:21)
[2020-04-10] MEDS: Cyanocobalamin (Vitamin B-12) 1,000 MCG TABLET 1000 MCG PO (09:21)
[2020-04-10] MEDS: hydroCHLOROthiazide 12.5 MG TABLET PO ×2 (09:21→20:14)
[2020-04-10] MEDS: Clopidogrel Bisulfate 75 MG TABLET PO (09:21)
[2020-04-10] MEDS: Folic Acid 1 MG TABLET PO (09:21)
[2020-04-10 11:44] LABS: Glucose, Whole Blood 298 mg/dL (60-115)
--- NOTE | 2020-04-10 12:15 | HO.PM.IMPN ---
Subjective Subjective Date of Service: 04/10/20 Interval History: on 15Lpm O2 via Ybarra device, SaO2 around 93-94% but sometimes dips to 88% no fever/chills Physical Exam Vital Signs: Vital Signs: Last Vital Signs Temp 98.1 F 04/10/20 09:18 Pulse 63 04/10/20 09:21 Resp 20 04/10/20 09:18 BP 154/83 H 04/10/20 09:21 Pulse Ox 93 04/10/20 09:18 Body Mass Index 28.5 Gen: in no acute distress HEENT: sclera anicteric, moist mucus membranes Neck: supple Lungs: no respiratory distress, auscultation deferred due to COVID-19 Heart: normal peripheral pulses Abd: soft, non-tender, non-distended Ext: no cyanosis, clubbing, or edema Skin: warm/well-perfused Neuro: alert and oriented x3, no focal findings Psych: appropriate affect Objective Data Current Medications Generic Name Dose Route Start Last Admin Trade Name Freq PRN Reason Stop Dose Admin Acetaminophen 650 mg 04/07/20 18:05 04/09/20 11:05 Acetaminophen 325 Mg Tablet PO 650 mg Q6H PRN Administration Pain, Mild (Pain Scale 1-3) Hydrocodone Bitart/Acetaminophen 1 tab 04/09/20 13:18 Hydrocodone Bit/Acetam 5/325 Tablet PO Q4H PRN moderate-severe pain Albuterol Sulfate 2 puff 04/07/20 18:05 Albuterol Sulfate 90 Mcg 8 Gm Inhaler INHALE Q4H PRN Shortness of Breath Aspirin 81 mg 04/08/20 09:00 04/10/20 09:21 Aspirin Enteric Coated 81 Mg Tablet.Dr PO 81 mg DAILY [facility] Administration Atorvastatin Calcium 80 mg 04/07/20 21:00 04/09/20 19:45 Atorvastatin Calcium 80 Mg Tablet PO 80 mg BEDTIME [facility] Administration Betamethasone Dipropion Augmented 1 appl 04/08/20 06:17 Betamethasone Dip Aug 0.05% Cr 15 Gm Tube TOPICAL BID PRN Rash Bupropion HCl 300 mg 04/08/20 09:00 04/10/20 09:21 Bupropion Hcl Xl 300 Mg Tab.Er.24h PO 300 mg DAILY [facility] Administration Cilostazol 100 mg 04/07/20 21:00 02/14/21 09:21 Cilostazol 100 Mg Tablet PO 100 mg BID [facility] Administration Clopidogrel Bisulfate 75 mg 04/08/20 09:00 04/10/20 09:21 Clopidogrel Bisulfate 75 Mg Tablet PO 75 mg DAILY [facility] Administration Clotrimazole 1 appl 04/08/20 09:00 04/10/20 09:21 Clotrimazole 1 % Cream 15 Gm Tube TOPICAL 1 appl DAILY [facility] Administration Protocol Cyanocobalamin 1,000 mcg 04/08/20 09:00 04/10/20 09:21 Cyanocobalamin (Vitamin B-12) 1,000 Mcg Tablet PO 1,000 mcg DAILY [facility] Administration Dexamethasone Sodium Phosphate 6 mg 04/08/20 09:00 04/10/20 09:20 Dexamethasone Sod Phosphate/Pf 10 Mg/Ml Vial IVPUSH 6 mg DAILY [facility] Administration Diltiazem HCl 300 mg 04/09/20 09:00 04/10/20 09:20 Diltiazem Hcl Cd 300 Mg Cap.Er.24h PO 300 mg DAILY [facility] Administration Diltiazem HCl 120 mg 04/09/20 09:00 04/10/20 09:20 Diltiazem Hcl Cd 120 Mg Cap.Er.Deg PO 120 mg DAILY [facility] Administration Protocol Docusate Sodium 100 mg 04/07/20 18:05 Docusate Sodium 100 Mg Capsule PO DAILY PRN Constipation Enoxaparin Sodium 40 mg 04/08/20 12:00 04/09/20 13:49 Enoxaparin Sodium 40 Mg/0.4 Ml Syringe SUBCUT 40 mg Q24H [facility] Administration Ferrous Sulfate 324 mg 04/08/20 17:00 04/10/20 09:21 Ferrous Sulfate 324 Mg Tablet.Dr PO 324 mg BIDWM [facility] Administration Folic Acid 1 mg 04/08/20 09:00 04/10/20 09:21 Folic Acid 1 Mg Tablet PO 1 mg DAILY [facility] Administration Hydrochlorothiazide 12.5 mg 04/07/20 21:00 04/10/20 09:21 Hydrochlorothiazide 12.5 Mg Tablet PO 12.5 mg BID [facility] Administration Protocol Remdesivir 100 mg/ Sodium 230 mls @ 115 mls/hr 04/09/20 20:00 04/09/20 21:35 Chloride IV 04/12/20 21:59 Infused Q24H [facility] Infusion Insulin Glargine 15 unit 04/08/20 09:00 04/10/20 09:19 Insulin Glargine,Hum.Rec.Anlog 100 Unit/Ml 10 Ml Vial SUBCUT 15 unit DAILY [facility] Administration Insulin Human Lispro 0 unit 04/07/20 18:05 04/10/20 09:19 Insulin Lispro 100 Unit/Ml 3 Ml Vial SUBCUT 2 unit QIDACHS [facility] Administration Protocol Latanoprost 1 drop 04/07/20 21:00 04/09/20 19:46 Latanoprost 0.005 % Ophth Jackeline 2.5 Ml Drops EYE-BOTH 1 drop BEDTIME [facility] Administration Lisinopril 20 mg 04/07/20 21:00 04/10/20 09:21 Lisinopril 20 Mg Tablet PO 20 mg BID [facility] Administration Protocol Melatonin 3 mg 04/09/20 21:00 04/09/20 19:45 Melatonin 3 Mg Tablet PO 3 mg BEDTIME [facility] Administration Ondansetron HCl 4 mg 04/07/20 18:05 Ondansetron Hcl 4 Mg/2 Ml Vial IVPUSH Q8H PRN Nausea and Vomiting Pharmacy Consult 1 each 04/07/20 14:47 Consult Rx Perform Med Rec MISCELLANE ONCE PRN Consult order Sodium Chloride 3 ml 04/07/20 18:05 04/10/20 09:20 0.9 % Sodium Chloride Flush 3 Ml Syringe IVFLUSH 3 ml QSHIFT [facility] Administration Tolterodine Tartrate 4 mg 04/08/20 09:00 04/10/20 09:21 Tolterodine Tartrate La 4 Mg Cap.Er.24h PO 4 mg DAILY [facility] Administration Zolpidem Tartrate 10 mg 04/07/20 18:05 Zolpidem Tartrate 5 Mg Tablet PO BEDTIME PRN Sleep Labs CBC & Chem 7: 04/10/20 06:01 04/10/20 06:01 Labs: Laboratory Results - last 24 hr 04/09/20 04/09/20 04/10/20 16:04 19:48 06:01 WBC 11.2 H RBC 4.64 Hgb 9.3 L Hct 30.6 L MCV 65.9 L MCH 20.0 L MCHC 30.4 L RDW 26.2 H Plt Count 386 MPV 10.1 Immature Gran % (Auto) 0.4 Neut % (Auto) 84.1 H Lymph % (Auto) 5.9 L [place] % (Auto) 9.5 Eos % (Auto) 0.0 Baso % (Auto) 0.1 Lymph # (Auto) 0.7 L [place] # (Auto) 1.1 Eos # (Auto) 0.0 Baso # (Auto) 0.0 Abs Immat Gran (auto) 0.04 H Absolute Neuts (auto) 9.4 H Absolute Nucleated RBC 0.000 Nucleated RBC % (auto) 0.0 Smear Tech's Comments VERIFIED Sodium Potassium Chloride Carbon Dioxide Anion Gap BUN Creatinine Estim Creat Clear Calc Estimated GFR POC Glucose 287 H 292 H Random Glucose Calcium Total Bilirubin AST ALT Alkaline Phosphatase Total Protein Albumin 04/10/20 04/10/20 04/10/20 06:01 07:41 11:34 WBC RBC Hgb Hct MCV MCH MCHC RDW Plt Count MPV Immature Gran % (Auto) Neut % (Auto) Lymph % (Auto) [place] % (Auto) Eos % (Auto) Baso % (Auto) Lymph # (Auto) [place] # (Auto) Eos # (Auto) Baso # (Auto) Abs Immat Gran (auto) Absolute Neuts (auto) Absolute Nucleated RBC Nucleated RBC % (auto) Smear Tech's Comments Sodium 135 Potassium 4.6 Chloride 100 Carbon Dioxide 25 Anion Gap 15 BUN 24 H Creatinine 0.88 Estim Creat Clear Calc 88.3 Estimated GFR > 60 POC Glucose 174 H 298 H Random Glucose 197 H D Calcium 8.5 Total Bilirubin 0.6 AST 20 D ALT 15 Alkaline Phosphatase 100 Total Protein 6.7 Albumin 3.5 Microbiology Microbiology Results: Microbiology 04/07/20 14:45 Blood - Venous Blood Culture - Preliminary No growth after 48 hours. 04/07/20 14:37 Blood - Venous Blood Culture - Preliminary No growth after 48 hours. Assessment and Plan (1) 2019 novel coronavirus–infected pneumonia (NCIP)#8211;infected pneumonia (NCIP): Status: Acute (2) Hypoxia: Status: Acute (3) Anemia: Status: Acute Assessment and Plan: hospital d#4 70yo M with DM2, HTN, HLD, PVD, MASSIEL admitted for hypoxia due to COVID-19 pneumonia presented on d#10 of illness # COVID-19 pneumonia - dexamethasone d#4, remdesivir d#3, ID following, trend inflammatory markers # acute hypoxic respiratory failure - supplemental O2, wean as tolerated, encourage awake proning. if fails to maintain SaO2 of 94%+, will need HFNC which will provide some CPAP effect in addition to higher FiO2 # Fe deficiency anemia - Hb stable p 2u pRBCs. FOBT negative. continue Fe supplementation # HTN - continue lisinopril, HCTZ, diltiazem # PVD - continue DAPT, cilostazol, statin # HLD - continue statin # DM2, A1c 6.9 - correction-dose lispro # depression - continue bupropion # VTE ppx - LMWH I updated the pt's Cira by phone,
[2020-04-10] MEDS: Enoxaparin Sodium 40 MG/0.4 ML SYRINGE SUBCUT (12:18)
[2020-04-10 16:01] LABS: Glucose, Whole Blood 384 mg/dL (60-115)
[2020-04-10 19:55] LABS: Glucose, Whole Blood 349 mg/dL (60-115)
[2020-04-10] MEDS: Melatonin 3 MG TABLET PO (20:14)
[2020-04-10] MEDS: Atorvastatin Calcium 80 MG TABLET PO (20:15)
[2020-04-10] MEDS: Remdesivir 100 MG in 0.9 % Sodium Chloride 230 ML 115 MG IV (20:17)
[2020-04-10] MEDS: Latanoprost 0.005 % Ophth Sol 2.5 ML DROPS 1 DROP EYE-BOTH (20:36)
[2020-04-11] VITALS (12 sets, daily range): BP systolic 133–148; BP diastolic 62–77; PULSE 74–83; RESP 18–24; TEMP 36.4–37; O2SAT 88–97
[2020-04-11 06:29] LABS: MANUAL DIFF FLAG NO
[2020-04-11 07:15] LABS: Alanine Aminotransferase 15 U/L (0-40); Albumin Level 3.5 g/dL (3.5-5.0); Alkaline Phosphatase 103 U/L (39-117); Anion Gap 16 (12-20); Aspartate Amino Transferase 16 U/L (5-37); Bilirubin Total 0.6 mg/dL (0.0-1.0); Blood Urea Nitrogen 36 mg/dL (9-16); C Reactive Protein 6.43 mg/dL (< or = 0.50); Calcium 8.7 mg/dL (8.4-10.2); Carbon Dioxide 24 mmol/L (22-29); Chloride 101 mmol/L (96-108); Creatinine Clr Calc Pharmacy 71.9; Estimated Glomerular Filt Rate > 60; Glucose Random 220 mg/dL (60-115); Potassium 5.2 mmol/L (3.3-5.1); Sodium 136 mmol/L (135-145); Total Protein 6.7 g/dL (6.5-8.0)
[2020-04-11 07:44] LABS: Glucose, Whole Blood 199 mg/dL (60-115)
[2020-04-11 07:47] LABS: Basophils Percent Auto 0.1 % (0-2); Hematocrit 30.9 % (42-52); Hemoglobin 9.4 g/dl (14.0-18.0); Imm Gran Abs Auto 0.11 X10*3/uL (0.00-0.03); Imm Gran Pct Auto 0.7 % (0.0-0.4); Lymphocytes Absolute Auto 0.7 X10*3/uL (1.2-4.9); Lymphocytes Percent Auto 4.6 % (20-40); Mean Corpuscular HGB Conc 30.4 g/dl (31.0-36.0); Mean Corpuscular Hemoglobin 20.3 pg (27.0-33.0); Mean Corpuscular Volume 66.7 fL (80-98); Mean Platelet Volume 10.4 fL (9.4-12.4); Monocytes Absolute Auto 1.4 X10*3/uL (0.1-1.2); Monocytes Percent Auto 8.7 % (2-11); Neutrophils Absolute Auto 13.7 X10*3/uL (2.0-8.3); Neutrophils Percent Auto 85.9 % (45-73); Platelet Count 432 X10*3/uL (160-400); Red Blood Count 4.63 X10*6/uL (4.60-5.80); Red Cell Distribution Width 26.4 % (11.0-16.0); White Blood Count 15.9 X10*3/uL (4.8-10.8)
[2020-04-11] MEDS: Cyanocobalamin (Vitamin B-12) 1,000 MCG TABLET 1000 MCG PO (07:53)
[2020-04-11] MEDS: dilTIAZem HCL CD 120 MG CAP.ER.DEG PO (07:53)
[2020-04-11] MEDS: buPROPion HCl XL 300 MG TAB.ER.24H PO (07:53)
[2020-04-11] MEDS: Tolterodine Tartrate LA 4 MG CAP.ER.24H PO (07:53)
[2020-04-11] MEDS: Aspirin Enteric Coated 81 MG TABLET.DR PO (07:54)
[2020-04-11] MEDS: cilostazoL 100 MG TABLET PO ×2 (07:54→20:00)
[2020-04-11] MEDS: dilTIAZem HCL CD 300 MG CAP.ER.24H PO (07:54)
[2020-04-11] MEDS: Ferrous Sulfate 324 MG TABLET.DR PO ×2 (07:54→16:34)
[2020-04-11] MEDS: Folic Acid 1 MG TABLET PO (07:54)
[2020-04-11] MEDS: hydroCHLOROthiazide 12.5 MG TABLET PO ×2 (07:54→20:00)
[2020-04-11] MEDS: Clopidogrel Bisulfate 75 MG TABLET PO (07:54)
[2020-04-11] MEDS: 0.9 % Sodium Chloride Flush 3 ML SYRINGE IVFLUSH ×3 (07:55→23:15)
[2020-04-11] MEDS: Clotrimazole 1 % Cream 15 GM TUBE 1 APPL TOPICAL (08:03)
[2020-04-11] MEDS: Insulin Lispro 100 UNIT/ML 3 ML VIAL SUBCUT ×4 (08:09→19:56)
[2020-04-11] MEDS: Insulin Glargine,Hum.rec.anlog 100 UNIT/ML 10 ML VIAL 15 UNIT SUBCUT (08:09)
--- NOTE | 2020-04-11 11:10 | HO.PM.IMPN ---
Subjective Subjective Date of Service: 04/11/20 Interval History: feeling better than before despite worsening hypoxia Cardiovascular Cardiovascular: Reports no additional cardiovascular complaints Gastrointestinal Gastrointestinal: Reports no additional gastrointestinal complaints Physical Exam Vital Signs: Vital Signs: Last Vital Signs Temp 97.7 F 04/11/20 07:48 Pulse 74 04/11/20 07:54 Resp 18 04/11/20 08:13 BP 148/69 H 04/11/20 07:54 Pulse Ox 91 L 04/11/20 07:48 Body Mass Index 28.5 General: AO X 3, no acute distress Resp: rales CVS: S1,S2,RRR GI: soft, non tender, non distended Neuro: motor grossly intact Psych: appropriate affect Objective Data Current Medications Generic Name Dose Route Start Last Admin Trade Name Marioq PRN Reason Stop Dose Admin Acetaminophen 650 mg 04/07/20 18:05 04/09/20 11:05 Acetaminophen 325 Mg Tablet PO 650 mg Q6H PRN Administration Pain, Mild (Pain Scale 1-3) Hydrocodone Bitart/Acetaminophen 1 tab 04/09/20 13:18 Hydrocodone Bit/Acetam 5/325 Tablet PO Q4H PRN moderate-severe pain Albuterol Sulfate 2 puff 04/07/20 18:05 Albuterol Sulfate 90 Mcg 8 Gm Inhaler INHALE Q4H PRN Shortness of Breath Aspirin 81 mg 04/08/20 09:00 04/11/20 07:54 Aspirin Enteric Coated 81 Mg Tablet.Dr PO 81 mg DAILY KYM Administration Atorvastatin Calcium 80 mg 04/07/20 21:00 04/10/20 20:15 Atorvastatin Calcium 80 Mg Tablet PO 80 mg BEDTIME KYM Administration Betamethasone Dipropion Augmented 1 appl 04/08/20 06:17 Betamethasone Dip Aug 0.05% Cr 15 Gm Tube TOPICAL BID PRN Rash Bupropion HCl 300 mg 04/08/20 09:00 04/11/20 07:53 Bupropion Hcl Xl 300 Mg Tab.Er.24h PO 300 mg DAILY KYM Administration Cilostazol 100 mg 04/07/20 21:00 04/11/20 07:54 Cilostazol 100 Mg Tablet PO 100 mg BID KYM Administration Clopidogrel Bisulfate 75 mg 04/08/20 09:00 04/11/20 07:54 Clopidogrel Bisulfate 75 Mg Tablet PO 75 mg DAILY KYM Administration Clotrimazole 1 appl 04/08/20 09:00 04/11/20 08:03 Clotrimazole 1 % Cream 15 Gm Tube TOPICAL 1 appl DAILY KYM Administration Protocol Cyanocobalamin 1,000 mcg 04/08/20 09:00 04/11/20 07:53 Cyanocobalamin (Vitamin B-12) 1,000 Mcg Tablet PO 1,000 mcg DAILY KYM Administration Dexamethasone Sodium Phosphate 6 mg 04/08/20 09:00 04/11/20 07:54 Dexamethasone Sod Phosphate/Pf 10 Mg/Ml Vial IVPUSH 6 mg DAILY KYM Administration Diltiazem HCl 300 mg 04/09/20 09:00 04/11/20 07:54 Diltiazem Hcl Cd 300 Mg Cap.Er.24h PO 300 mg DAILY KYM Administration Diltiazem HCl 120 mg 04/09/20 09:00 04/11/20 07:53 Diltiazem Hcl Cd 120 Mg Cap.Er.Deg PO 120 mg DAILY KYM Administration Protocol Docusate Sodium 100 mg 04/07/20 18:05 Docusate Sodium 100 Mg Capsule PO DAILY PRN Constipation Enoxaparin Sodium 40 mg 04/08/20 12:00 04/10/20 12:18 Enoxaparin Sodium 40 Mg/0.4 Ml Syringe SUBCUT 40 mg Q24H KYM Administration Ferrous Sulfate 324 mg 04/08/20 17:00 04/11/20 07:54 Ferrous Sulfate 324 Mg Tablet.Dr PO 324 mg BIDWM KYM Administration Folic Acid 1 mg 04/08/20 09:00 04/11/20 07:54 Folic Acid 1 Mg Tablet PO 1 mg DAILY KYM Administration Hydrochlorothiazide 12.5 mg 04/07/20 21:00 04/11/20 07:54 Hydrochlorothiazide 12.5 Mg Tablet PO 12.5 mg BID KYM Administration Protocol Remdesivir 100 mg/ Sodium 230 mls @ 115 mls/hr 04/09/20 20:00 04/10/20 22:14 Chloride IV 04/12/20 21:59 Infused Q24H KYM Infusion Insulin Glargine 15 unit 04/08/20 09:00 04/11/20 08:09 Insulin Glargine,Hum.Rec.Anlog 100 Unit/Ml 10 Ml Vial SUBCUT 15 unit DAILY KYM Administration Insulin Human Lispro 0 unit 04/07/20 18:05 04/11/20 08:09 Insulin Lispro 100 Unit/Ml 3 Ml Vial SUBCUT 2 unit QIDACHS KYM Administration Protocol Latanoprost 1 drop 04/07/20 21:00 04/10/20 20:36 Latanoprost 0.005 % Ophth Jackeline 2.5 Ml Drops EYE-BOTH 1 drop BEDTIME KYM Administration Lisinopril 20 mg 04/07/20 21:00 04/11/20 07:53 Lisinopril 20 Mg Tablet PO 20 mg BID KYM Administration Protocol Melatonin 3 mg 04/09/20 21:00 04/10/20 20:14 Melatonin 3 Mg Tablet PO 3 mg BEDTIME KYM Administration Ondansetron HCl 4 mg 04/07/20 18:05 Ondansetron Hcl 4 Mg/2 Ml Vial IVPUSH Q8H PRN Nausea and Vomiting Pharmacy Consult 1 each 04/07/20 14:47 Consult Rx Perform Med Rec MISCELLANE ONCE PRN Consult order Sodium Chloride 3 ml 04/07/20 18:05 04/11/20 07:55 0.9 % Sodium Chloride Flush 3 Ml Syringe IVFLUSH 3 ml QSHIFT KYM Administration Tolterodine Tartrate 4 mg 04/08/20 09:00 04/11/20 07:53 Tolterodine Tartrate La 4 Mg Cap.Er.24h PO 4 mg DAILY KYM Administration Zolpidem Tartrate 10 mg 04/07/20 18:05 Zolpidem Tartrate 5 Mg Tablet PO BEDTIME PRN Sleep Labs CBC & Chem 7: 04/11/20 05:36 04/11/20 05:36 Microbiology Microbiology Results: Microbiology 04/07/20 14:45 Blood - Venous Blood Culture - Preliminary No growth after 48 hours. 04/07/20 14:37 Blood - Venous Blood Culture - Preliminary No growth after 48 hours. Assessment and Plan (1) 2019 novel coronavirus–infected pneumonia (NCIP)#8211;infected pneumonia (NCIP): Status: Acute (2) Hypoxia: Status: Acute (3) Anemia: Status: Acute Assessment and Plan: hospital d#5 70yo M with DM2, HTN, HLD, PVD, MASSIEL admitted for hypoxia due to COVID-19 pneumonia presented on d#10 of illness acute hypoxic respiratory failure due to COVID-19 pneumonia dexamethasone d#07/04, remdesivir d#06/04, ID following currently requiring high flow Fe deficiency anemia - Hb stable p 2u pRBCs. FOBT negative. continue Fe supplementation HTN - continue lisinopril, HCTZ, diltiazem PVD - continue DAPT, cilostazol, statin HLD - continue statin DM2, A1c 6.9 - correction-dose lispro depression - continue bupropion VTE ppx - LMWH
[2020-04-11 11:49] LABS: Glucose, Whole Blood 299 mg/dL (60-115)
[2020-04-11] MEDS: Enoxaparin Sodium 40 MG/0.4 ML SYRINGE SUBCUT (11:50)
[2020-04-11 16:15] LABS: Glucose, Whole Blood 355 mg/dL (60-115)
--- NOTE | 2020-04-11 18:35 | PC.NURSE ---
POC prior to supper was 355. pt asymptomatic, recieved 10 units of Humalog as per sliding scale. made aware. no new orders at this time.
[2020-04-11 19:54] LABS: Glucose, Whole Blood 317 mg/dL (60-115)
[2020-04-11] MEDS: Latanoprost 0.005 % Ophth Sol 2.5 ML DROPS 1 DROP EYE-BOTH (19:56)
[2020-04-11] MEDS: Remdesivir 100 MG in 0.9 % Sodium Chloride 230 ML 115 MG IV (19:57)
[2020-04-11] MEDS: Atorvastatin Calcium 80 MG TABLET PO (19:58)
[2020-04-11] MEDS: Melatonin 3 MG TABLET PO (19:59)
[2020-04-12] VITALS (13 sets, daily range): BP systolic 127–152; BP diastolic 58–70; PULSE 57–75; RESP 18–32; TEMP 36.3–37.2; O2SAT 90–100
[2020-04-12 07:34] LABS: Glucose, Whole Blood 235 mg/dL (60-115)
[2020-04-12] MEDS: Insulin Lispro 100 UNIT/ML 3 ML VIAL SUBCUT ×4 (08:53→21:13)
[2020-04-12] MEDS: Insulin Glargine,Hum.rec.anlog 100 UNIT/ML 10 ML VIAL 15 UNIT SUBCUT (08:53)
[2020-04-12] MEDS: dilTIAZem HCL CD 300 MG CAP.ER.24H PO (08:54)
[2020-04-12] MEDS: Ferrous Sulfate 324 MG TABLET.DR PO ×2 (08:55→17:04)
[2020-04-12] MEDS: buPROPion HCl XL 300 MG TAB.ER.24H PO (08:55)
[2020-04-12] MEDS: Clopidogrel Bisulfate 75 MG TABLET PO (08:55)
[2020-04-12] MEDS: Tolterodine Tartrate LA 4 MG CAP.ER.24H PO (08:55)
[2020-04-12] MEDS: cilostazoL 100 MG TABLET PO ×2 (08:55→21:12)
[2020-04-12] MEDS: Aspirin Enteric Coated 81 MG TABLET.DR PO (08:56)
[2020-04-12] MEDS: hydroCHLOROthiazide 12.5 MG TABLET PO ×2 (08:56→21:13)
[2020-04-12] MEDS: Folic Acid 1 MG TABLET PO (08:57)
[2020-04-12] MEDS: dilTIAZem HCL CD 120 MG CAP.ER.DEG PO ×2 (09:01→09:07)
[2020-04-12] MEDS: 0.9 % Sodium Chloride Flush 3 ML SYRINGE IVFLUSH ×2 (09:06→17:04)
[2020-04-12] MEDS: Cyanocobalamin (Vitamin B-12) 1,000 MCG TABLET 1000 MCG PO (09:09)
[2020-04-12] MEDS: Clotrimazole 1 % Cream 15 GM TUBE 1 APPL TOPICAL (09:09)
[2020-04-12 11:14] LABS: Glucose, Whole Blood 386 mg/dL (60-115)
[2020-04-12] MEDS: Enoxaparin Sodium 40 MG/0.4 ML SYRINGE SUBCUT (11:51)
--- NOTE | 2020-04-12 14:18 | HO.PM.IMPN ---
Subjective Subjective Date of Service: 04/12/20 Interval History: feels ok Cardiovascular Cardiovascular: Reports no additional cardiovascular complaints Respiratory Respiratory: Reports no additional respiratory complaints Physical Exam Vital Signs: Vital Signs: Last Vital Signs Temp 97.4 F 04/12/20 11:36 Pulse 74 04/12/20 11:36 Resp 20 04/12/20 11:49 BP 130/63 04/12/20 11:36 Pulse Ox 94 04/12/20 11:36 Body Mass Index 28.5 General: AO X 3, no acute distress Resp: CTA bilateral CVS: S1,S2,RRR GI: soft, non tender, non distended Neuro: motor grossly intact Psych: appropriate affect Objective Data Current Medications Generic Name Dose Route Start Last Admin Trade Name Freq PRN Reason Stop Dose Admin Acetaminophen 650 mg 04/07/20 18:05 04/09/20 11:05 Acetaminophen 325 Mg Tablet PO 650 mg Q6H PRN Administration Pain, Mild (Pain Scale 1-3) Hydrocodone Bitart/Acetaminophen 1 tab 04/09/20 13:18 Hydrocodone Bit/Acetam 5/325 Tablet PO Q4H PRN moderate-severe pain Albuterol Sulfate 2 puff 04/07/20 18:05 Albuterol Sulfate 90 Mcg 8 Gm Inhaler INHALE Q4H PRN Shortness of Breath Aspirin 81 mg 04/08/20 09:00 04/12/20 08:56 Aspirin Enteric Coated 81 Mg Tablet.Dr PO 81 mg DAILY KYM Administration Atorvastatin Calcium 80 mg 04/07/20 21:00 04/11/20 19:58 Atorvastatin Calcium 80 Mg Tablet PO 80 mg BEDTIME KYM Administration Betamethasone Dipropion Augmented 1 appl 04/08/20 06:17 Betamethasone Dip Aug 0.05% Cr 15 Gm Tube TOPICAL BID PRN Rash Bupropion HCl 300 mg 04/08/20 09:00 04/12/20 08:55 Bupropion Hcl Xl 300 Mg Tab.Er.24h PO 300 mg DAILY KYM Administration Cilostazol 100 mg 04/07/20 21:00 04/12/20 08:55 Cilostazol 100 Mg Tablet PO 100 mg BID KYM Administration Clopidogrel Bisulfate 75 mg 04/08/20 09:00 04/12/20 08:55 Clopidogrel Bisulfate 75 Mg Tablet PO 75 mg DAILY KYM Administration Clotrimazole 1 appl 04/08/20 09:00 04/12/20 09:09 Clotrimazole 1 % Cream 15 Gm Tube TOPICAL 1 appl DAILY [facility] Administration Protocol Cyanocobalamin 1,000 mcg 04/08/20 09:00 04/12/20 09:09 Cyanocobalamin (Vitamin B-12) 1,000 Mcg Tablet PO 1,000 mcg DAILY KYM Administration Dexamethasone Sodium Phosphate 6 mg 04/08/20 09:00 04/12/20 08:57 Dexamethasone Sod Phosphate/Pf 10 Mg/Ml Vial IVPUSH 6 mg DAILY KYM Administration Diltiazem HCl 300 mg 04/09/20 09:00 04/12/20 08:54 Diltiazem Hcl Cd 300 Mg Cap.Er.24h PO 300 mg DAILY KYM Administration Diltiazem HCl 120 mg 04/09/20 09:00 04/12/20 09:07 Diltiazem Hcl Cd 120 Mg Cap.Er.Deg PO 120 mg DAILY [facility] Administration Protocol Docusate Sodium 100 mg 04/07/20 18:05 Docusate Sodium 100 Mg Capsule PO DAILY PRN Constipation Enoxaparin Sodium 40 mg 04/08/20 12:00 04/12/20 11:51 Enoxaparin Sodium 40 Mg/0.4 Ml Syringe SUBCUT 40 mg Q24H KYM Administration Ferrous Sulfate 324 mg 04/08/20 17:00 04/12/20 08:55 Ferrous Sulfate 324 Mg Tablet.Dr PO 324 mg BIDWM KYM Administration Folic Acid 1 mg 04/08/20 09:00 04/12/20 08:57 Folic Acid 1 Mg Tablet PO 1 mg DAILY KYM Administration Hydrochlorothiazide 12.5 mg 04/07/20 21:00 04/12/20 08:56 Hydrochlorothiazide 12.5 Mg Tablet PO 12.5 mg BID [facility] Administration Protocol Remdesivir 100 mg/ Sodium 230 mls @ 115 mls/hr 04/09/20 20:00 04/11/20 23:16 Chloride IV 04/12/20 21:59 Infused Q24H [facility] Infusion Insulin Glargine 15 unit 04/08/20 09:00 04/12/20 08:53 Insulin Glargine,Hum.Rec.Anlog 100 Unit/Ml 10 Ml Vial SUBCUT 15 unit DAILY KYM Administration Insulin Human Lispro 0 unit 04/07/20 18:05 04/12/20 11:51 Insulin Lispro 100 Unit/Ml 3 Ml Vial SUBCUT 10 unit QIDACHS KYM Administration Protocol Latanoprost 1 drop 04/07/20 21:00 04/11/20 19:56 Latanoprost 0.005 % Ophth Jackeline 2.5 Ml Drops EYE-BOTH 1 drop BEDTIME KYM Administration Lisinopril 20 mg 04/07/20 21:00 04/12/20 08:57 Lisinopril 20 Mg Tablet PO 20 mg BID KYM Administration Protocol Melatonin 3 mg 04/09/20 21:00 04/11/20 19:59 Melatonin 3 Mg Tablet PO 3 mg BEDTIME KYM Administration Ondansetron HCl 4 mg 04/07/20 18:05 Ondansetron Hcl 4 Mg/2 Ml Vial IVPUSH Q8H PRN Nausea and Vomiting Pharmacy Consult 1 each 04/07/20 14:47 Consult Rx Perform Med Rec MISCELLANE ONCE PRN Consult order Sodium Chloride 3 ml 04/07/20 18:05 04/12/20 09:06 0.9 % Sodium Chloride Flush 3 Ml Syringe IVFLUSH 3 ml QSHIFT KYM Administration Tolterodine Tartrate 4 mg 04/08/20 09:00 04/12/20 08:55 Tolterodine Tartrate La 4 Mg Cap.Er.24h PO 4 mg DAILY KYM Administration Zolpidem Tartrate 10 mg 04/07/20 18:05 Zolpidem Tartrate 5 Mg Tablet PO BEDTIME PRN Sleep Labs CBC & Chem 7: 04/11/20 05:36 04/11/20 05:36 Microbiology Microbiology Results: Microbiology 04/07/20 14:45 Blood - Venous Blood Culture - Preliminary No growth after 48 hours. 04/07/20 14:37 Blood - Venous Blood Culture - Preliminary No growth after 48 hours. Assessment and Plan (1) 2019 novel coronavirus–infected pneumonia (NCIP)#8211;infected pneumonia (NCIP): Status: Acute (2) Hypoxia: Status: Acute (3) Anemia: Status: Acute Assessment and Plan: hospital d#5 70yo M with DM2, HTN, HLD, PVD, MASSIEL admitted for hypoxia due to COVID-19 pneumonia presented on d#11 of illness acute hypoxic respiratory failure due to COVID-19 pneumonia dexamethasone d#08/04, remdesivir d#07/04, ID following currently requiring high flow Fe deficiency anemia - Hb stable p 2u pRBCs. FOBT negative. continue Fe supplementation HTN - continue lisinopril, HCTZ, diltiazem PVD - continue DAPT, cilostazol, statin HLD - continue statin DM2, A1c 6.9 - correction-dose lispro depression - continue bupropion VTE ppx - LMWH
[2020-04-12 16:46] LABS: Glucose, Whole Blood 370 mg/dL (60-115)
[2020-04-12 20:19] LABS: Glucose, Whole Blood 321 mg/dL (60-115)
[2020-04-12] MEDS: Atorvastatin Calcium 80 MG TABLET PO (21:10)
[2020-04-12] MEDS: Melatonin 3 MG TABLET PO (21:12)
[2020-04-12] MEDS: Remdesivir 100 MG in 0.9 % Sodium Chloride 230 ML 115 MG IV (21:18)
[2020-04-12] MEDS: Latanoprost 0.005 % Ophth Sol 2.5 ML DROPS 1 DROP EYE-BOTH (21:20)
[2020-04-13] VITALS (9 sets, daily range): BP systolic 123–158; BP diastolic 59–93; PULSE 67–78; RESP 16–26; TEMP 35.8–36.3; O2SAT 90–98
[2020-04-13] MEDS: 0.9 % Sodium Chloride Flush 3 ML SYRINGE IVFLUSH ×4 (00:20→22:45)
[2020-04-13 07:48] LABS: Glucose, Whole Blood 158 mg/dL (60-115)
[2020-04-13] MEDS: Insulin Lispro 100 UNIT/ML 3 ML VIAL SUBCUT ×4 (08:11→22:44)
[2020-04-13] MEDS: Insulin Glargine,Hum.rec.anlog 100 UNIT/ML 10 ML VIAL 15 UNIT SUBCUT (08:13)
[2020-04-13] MEDS: Aspirin Enteric Coated 81 MG TABLET.DR PO (08:14)
[2020-04-13] MEDS: Tolterodine Tartrate LA 4 MG CAP.ER.24H PO (08:14)
[2020-04-13] MEDS: Folic Acid 1 MG TABLET PO (08:14)
[2020-04-13] MEDS: hydroCHLOROthiazide 12.5 MG TABLET PO ×2 (08:14→08:19)
[2020-04-13] MEDS: cilostazoL 100 MG TABLET PO ×2 (08:14→22:44)
[2020-04-13] MEDS: dilTIAZem HCL CD 120 MG CAP.ER.DEG PO (08:15)
[2020-04-13] MEDS: Cyanocobalamin (Vitamin B-12) 1,000 MCG TABLET 1000 MCG PO (08:16)
[2020-04-13] MEDS: Ferrous Sulfate 324 MG TABLET.DR PO ×2 (08:16→17:36)
[2020-04-13] MEDS: Clopidogrel Bisulfate 75 MG TABLET PO (08:16)
[2020-04-13] MEDS: buPROPion HCl XL 300 MG TAB.ER.24H PO (08:16)
[2020-04-13] MEDS: dilTIAZem HCL CD 300 MG CAP.ER.24H PO (08:20)
[2020-04-13] MEDS: Betamethasone Dip Aug 0.05% Cr 15 GM TUBE 1 APPL TOPICAL (10:26)
[2020-04-13] MEDS: Clotrimazole 1 % Cream 15 GM TUBE 1 APPL TOPICAL (10:27)
--- NOTE | 2020-04-13 11:30 | P.PNIM_ITS ---
Subjective Subjective Date of Service: 04/13/20 Interval History: continues to improve but require high levels of o2 Cardiovascular Cardiovascular: Reports no additional cardiovascular complaints Gastrointestinal Gastrointestinal: Reports no additional gastrointestinal complaints Physical Exam Vital Signs: Vital Signs: Last Vital Signs Temp 97.2 F 04/13/20 11:27 Pulse 74 04/13/20 11:27 Resp 20 04/13/20 11:27 BP 141/73 H 04/13/20 11:27 Pulse Ox 90 L 04/13/20 11:27 Body Mass Index 28.5 General: AO X 3, no acute distress Resp: CTA bilateral CVS: S1,S2,RRR GI: soft, non tender, non distended Neuro: motor grossly intact Psych: appropriate affect Objective Data Current Medications Generic Name Dose Route Start Last Admin Trade Name Freq PRN Reason Stop Dose Admin Acetaminophen 650 mg 04/07/20 18:05 04/09/20 11:05 Acetaminophen 325 Mg Tablet PO 650 mg Q6H PRN Administration Pain, Mild (Pain Scale 1-3) Hydrocodone Bitart/Acetaminophen 1 tab 04/09/20 13:18 Hydrocodone Bit/Acetam 5/325 Tablet PO Q4H PRN moderate-severe pain Albuterol Sulfate 2 puff 04/07/20 18:05 Albuterol Sulfate 90 Mcg 8 Gm Inhaler INHALE Q4H PRN Shortness of Breath Aspirin 81 mg 04/08/20 09:00 04/13/20 08:14 Aspirin Enteric Coated 81 Mg Tablet.Dr PO 81 mg DAILY KYM Administration Atorvastatin Calcium 80 mg 04/07/20 21:00 04/12/20 21:10 Atorvastatin Calcium 80 Mg Tablet PO 80 mg BEDTIME KYM Administration Betamethasone Dipropion Augmented 1 appl 04/08/20 06:17 04/13/20 10:26 Betamethasone Dip Aug 0.05% Cr 15 Gm Tube TOPICAL 1 appl BID PRN Administration Rash Bupropion HCl 300 mg 04/08/20 09:00 04/13/20 08:16 Bupropion Hcl Xl 300 Mg Tab.Er.24h PO 300 mg DAILY KYM Administration Cilostazol 100 mg 04/07/20 21:00 04/13/20 08:14 Cilostazol 100 Mg Tablet PO 100 mg BID KYM Administration Clopidogrel Bisulfate 75 mg 04/08/20 09:00 04/13/20 08:16 Clopidogrel Bisulfate 75 Mg Tablet PO 75 mg DAILY KYM Administration Clotrimazole 1 appl 04/08/20 09:00 04/13/20 10:27 Clotrimazole 1 % Cream 15 Gm Tube TOPICAL 1 appl DAILY [facility] Administration Protocol Cyanocobalamin 1,000 mcg 04/08/20 09:00 04/13/20 08:16 Cyanocobalamin (Vitamin B-12) 1,000 Mcg Tablet PO 1,000 mcg DAILY KYM Administration Dexamethasone Sodium Phosphate 6 mg 04/08/20 09:00 04/13/20 08:18 Dexamethasone Sod Phosphate/Pf 10 Mg/Ml Vial IVPUSH 6 mg DAILY KYM Administration Diltiazem HCl 300 mg 04/09/20 09:00 04/13/20 08:20 Diltiazem Hcl Cd 300 Mg Cap.Er.24h PO 300 mg DAILY KYM Administration Diltiazem HCl 120 mg 04/09/20 09:00 04/13/20 08:15 Diltiazem Hcl Cd 120 Mg Cap.Er.Deg PO 120 mg DAILY [facility] Administration Protocol Docusate Sodium 100 mg 04/07/20 18:05 Docusate Sodium 100 Mg Capsule PO DAILY PRN Constipation Enoxaparin Sodium 40 mg 04/08/20 12:00 04/12/20 11:51 Enoxaparin Sodium 40 Mg/0.4 Ml Syringe SUBCUT 40 mg Q24H KYM Administration Ferrous Sulfate 324 mg 04/08/20 17:00 04/13/20 08:16 Ferrous Sulfate 324 Mg Tablet.Dr PO 324 mg BIDWM KYM Administration Folic Acid 1 mg 04/08/20 09:00 04/13/20 08:14 Folic Acid 1 Mg Tablet PO 1 mg DAILY KYM Administration Hydrochlorothiazide 12.5 mg 04/07/20 21:00 04/13/20 08:19 Hydrochlorothiazide 12.5 Mg Tablet PO 12.5 mg BID [facility] Administration Protocol Insulin Glargine 15 unit 04/08/20 09:00 04/13/20 08:13 Insulin Glargine,Hum.Rec.Anlog 100 Unit/Ml 10 Ml Vial SUBCUT 15 unit DAILY [facility] Administration Insulin Human Lispro 0 unit 04/07/20 18:05 04/13/20 08:11 Insulin Lispro 100 Unit/Ml 3 Ml Vial SUBCUT 2 unit QIDACHS [facility] Administration Protocol Latanoprost 1 drop 04/07/20 21:00 04/12/20 21:20 Latanoprost 0.005 % Ophth Jackeline 2.5 Ml Drops EYE-BOTH 1 drop BEDTIME KYM Administration Lisinopril 20 mg 04/07/20 21:00 04/13/20 08:21 Lisinopril 20 Mg Tablet PO 20 mg BID KYM Administration Protocol Melatonin 3 mg 04/09/20 21:00 04/12/20 21:12 Melatonin 3 Mg Tablet PO 3 mg BEDTIME KYM Administration Ondansetron HCl 4 mg 04/07/20 18:05 Ondansetron Hcl 4 Mg/2 Ml Vial IVPUSH Q8H PRN Nausea and Vomiting Pharmacy Consult 1 each 04/07/20 14:47 Consult Rx Perform Med Rec MISCELLANE ONCE PRN Consult order Sodium Chloride 3 ml 04/07/20 18:05 04/13/20 08:19 0.9 % Sodium Chloride Flush 3 Ml Syringe IVFLUSH 3 ml QSHIFT KYM Administration Tolterodine Tartrate 4 mg 04/08/20 09:00 04/13/20 08:14 Tolterodine Tartrate La 4 Mg Cap.Er.24h PO 4 mg DAILY KYM Administration Labs CBC & Chem 7: 04/11/20 05:36 04/11/20 05:36 Microbiology Microbiology Results: Microbiology 04/07/20 14:45 Blood - Venous Blood Culture - Final No growth after 5 days. 04/07/20 14:37 Blood - Venous Blood Culture - Final No growth after 5 days. Assessment and Plan (1) 2018 novel coronavirus–infected pneumonia (NCIP)#8211;infected pneumonia (NCIP): Status: Acute (2) Hypoxia: Status: Acute (3) Anemia: Status: Acute Assessment and Plan: 70yo M with DM2, HTN, HLD, PVD, MASSIEL admitted for hypoxia due to COVID-19 pneumonia acute hypoxic respiratory failure due to COVID-19 pneumonia dexamethasone d#09/03, remdesivir completed Taken off high-flow today, now on non-rebreather. Continue to wean as tolerated Fe deficiency anemia - Hb stable p 2u pRBCs. FOBT negative. continue Fe supplementation HTN - continue lisinopril, HCTZ, diltiazem PVD - continue DAPT, cilostazol, statin HLD - continue statin DM2, A1c 6.9 - correction-dose lispro depression - continue bupropion VTE ppx - LMWH
[2020-04-13 11:39] LABS: Glucose, Whole Blood 255 mg/dL (60-115)
[2020-04-13] MEDS: Enoxaparin Sodium 40 MG/0.4 ML SYRINGE SUBCUT (12:19)
--- NOTE | 2020-04-13 13:13 | MHC.CM.PN ---
DP Male 70 DX covid+ LOS r/t the need for HIGHflow Oxygen. Pts plan is home no services. Further assessment will be required. DP is dependent on the Pts recovery. CM will follow.
[2020-04-13 16:31] LABS: Glucose, Whole Blood 316 mg/dL (60-115)
[2020-04-13 20:47] LABS: Glucose, Whole Blood 358 mg/dL (60-115)
[2020-04-13] MEDS: Melatonin 3 MG TABLET PO (22:43)
[2020-04-13] MEDS: Atorvastatin Calcium 80 MG TABLET PO (22:43)
[2020-04-13] MEDS: Latanoprost 0.005 % Ophth Sol 2.5 ML DROPS 1 DROP EYE-BOTH (22:45)
[2020-04-14] VITALS (11 sets, daily range): BP systolic 140–153; BP diastolic 68–94; PULSE 74–83; RESP 16–93; TEMP 36.1–36.6; O2SAT 24–97
--- NOTE | 2020-04-14 02:01 | PC.NURSE ---
CARE ASSUMED 23:15...AWAKE..ALERT & ORIENTED X3...VSS...RESPIRATIONS EASY...OCCASSIONAL HARSH COUGH..O2 15 L/M VIA OXIMYZER CANNULA AT HS...SAO2 90-92% AND DENIED SOB...EATING/DRINKING W/O DIFFICULTY...SAO2 84-87% WHEN SETTLED SELF FOR SLEEP...RETURNED TO 100% NRB MASK...SAO2 93-95%..DENIES/OFFERS NO COMPLAINTS
[2020-04-14 06:07] LABS: Basophils Percent Auto 0.1 % (0-2); Eosinophils Absolute Auto 0.1 X10*3/uL (0.0-0.4); Eosinophils Percent Auto 0.4 % (0-4); Hematocrit 32.1 % (42-52); Hemoglobin 9.9 g/dl (14.0-18.0); Imm Gran Abs Auto 0.17 X10*3/uL (0.00-0.03); Imm Gran Pct Auto 0.9 % (0.0-0.4); Lymphocytes Absolute Auto 1.3 X10*3/uL (1.2-4.9); Lymphocytes Percent Auto 6.5 % (20-40); MANUAL DIFF FLAG SCAN; Mean Corpuscular HGB Conc 30.8 g/dl (31.0-36.0); Mean Corpuscular Hemoglobin 20.3 pg (27.0-33.0); Mean Corpuscular Volume 65.9 fL (80-98); Mean Platelet Volume 9.7 fL (9.4-12.4); Monocytes Absolute Auto 2.6 X10*3/uL (0.1-1.2); Neutrophils Absolute Auto 15.5 X10*3/uL (2.0-8.3); Neutrophils Percent Auto 79.1 % (45-73); Platelet Count 569 X10*3/uL (160-400); Red Blood Count 4.87 X10*6/uL (4.60-5.80); Red Cell Distribution Width 26.5 % (11.0-16.0); SCAN SMEAR FLAG 1; White Blood Count 19.6 X10*3/uL (4.8-10.8)
[2020-04-14 06:27] LABS: Anion Gap 16 (12-20); Blood Urea Nitrogen 29 mg/dL (9-16); Calcium 8.3 mg/dL (8.4-10.2); Carbon Dioxide 22 mmol/L (22-29); Chloride 99 mmol/L (96-108); Creatinine Clr Calc Pharmacy 83.5; Estimated Glomerular Filt Rate > 60; Glucose Fasting 191 mg/dL (60-99); Potassium 5.3 mmol/L (3.3-5.1); Sodium 132 mmol/L (135-145)
[2020-04-14 06:33] LABS: SLIDE REVIEW VERIFIED
[2020-04-14] MEDS: 0.9 % Sodium Chloride Flush 3 ML SYRINGE IVFLUSH ×3 (07:47→21:16)
[2020-04-14 07:55] LABS: Glucose, Whole Blood 166 mg/dL (60-115)
[2020-04-14] MEDS: Insulin Lispro 100 UNIT/ML 3 ML VIAL SUBCUT ×4 (08:18→21:16)
[2020-04-14] MEDS: Insulin Glargine,Hum.rec.anlog 100 UNIT/ML 10 ML VIAL 15 UNIT SUBCUT (08:18)
[2020-04-14] MEDS: dilTIAZem HCL CD 300 MG CAP.ER.24H PO (08:22)
[2020-04-14] MEDS: cilostazoL 100 MG TABLET PO ×2 (08:23→21:15)
[2020-04-14] MEDS: hydroCHLOROthiazide 12.5 MG TABLET PO ×2 (08:23→21:15)
[2020-04-14] MEDS: Folic Acid 1 MG TABLET PO (08:23)
[2020-04-14] MEDS: buPROPion HCl XL 300 MG TAB.ER.24H PO (08:23)
[2020-04-14] MEDS: Aspirin Enteric Coated 81 MG TABLET.DR PO (08:23)
[2020-04-14] MEDS: Clopidogrel Bisulfate 75 MG TABLET PO (08:23)
[2020-04-14] MEDS: Ferrous Sulfate 324 MG TABLET.DR PO ×2 (08:24→16:55)
[2020-04-14] MEDS: Tolterodine Tartrate LA 4 MG CAP.ER.24H PO (08:24)
[2020-04-14] MEDS: Cyanocobalamin (Vitamin B-12) 1,000 MCG TABLET 1000 MCG PO (08:24)
--- NOTE | 2020-04-14 09:44 | P.PNIM_ITS ---
Subjective Subjective Date of Service: 04/14/20 Interval History: continues to feel better Cardiovascular Cardiovascular: Reports no additional cardiovascular complaints Gastrointestinal Gastrointestinal: Reports no additional gastrointestinal complaints Physical Exam Vital Signs: Vital Signs: Last Vital Signs Temp 97.3 F 04/14/20 07:51 Pulse 74 04/14/20 08:22 Resp 24 H 04/14/20 09:20 BP 144/68 H 04/14/20 08:22 Pulse Ox 92 04/14/20 07:51 Body Mass Index 28.5 General: AO X 3, no acute distress Resp: CTA bilateral CVS: S1,S2,RRR GI: soft, non tender, non distended Neuro: motor grossly intact Psych: appropriate affect Objective Data Current Medications Generic Name Dose Route Start Last Admin Trade Name Freq PRN Reason Stop Dose Admin Acetaminophen 650 mg 04/07/20 18:05 04/09/20 11:05 Acetaminophen 325 Mg Tablet PO 650 mg Q6H PRN Administration Pain, Mild (Pain Scale 1-3) Hydrocodone Bitart/Acetaminophen 1 tab 04/09/20 13:18 Hydrocodone Bit/Acetam 5/325 Tablet PO Q4H PRN moderate-severe pain Albuterol Sulfate 2 puff 04/07/20 18:05 Albuterol Sulfate 90 Mcg 8 Gm Inhaler INHALE Q4H PRN Shortness of Breath Aspirin 81 mg 04/08/20 09:00 04/14/20 08:23 Aspirin Enteric Coated 81 Mg Tablet.Dr PO 81 mg DAILY KYM Administration Atorvastatin Calcium 80 mg 04/07/20 21:00 04/13/20 22:43 Atorvastatin Calcium 80 Mg Tablet PO 80 mg BEDTIME KYM Administration Betamethasone Dipropion Augmented 1 appl 04/08/20 06:17 04/13/20 10:26 Betamethasone Dip Aug 0.05% Cr 15 Gm Tube TOPICAL 1 appl BID PRN Administration Rash Bupropion HCl 300 mg 04/08/20 09:00 04/14/20 08:23 Bupropion Hcl Xl 300 Mg Tab.Er.24h PO 300 mg DAILY KYM Administration Cilostazol 100 mg 04/07/20 21:00 04/14/20 08:23 Cilostazol 100 Mg Tablet PO 100 mg BID KYM Administration Clopidogrel Bisulfate 75 mg 04/08/20 09:00 04/14/20 08:23 Clopidogrel Bisulfate 75 Mg Tablet PO 75 mg DAILY KYM Administration Clotrimazole 1 appl 04/08/20 09:00 04/13/20 10:27 Clotrimazole 1 % Cream 15 Gm Tube TOPICAL 1 appl DAILY [facility] Administration Protocol Cyanocobalamin 1,000 mcg 04/08/20 09:00 04/14/20 08:24 Cyanocobalamin (Vitamin B-12) 1,000 Mcg Tablet PO 1,000 mcg DAILY KYM Administration Dexamethasone Sodium Phosphate 6 mg 04/08/20 09:00 04/14/20 08:19 Dexamethasone Sod Phosphate/Pf 10 Mg/Ml Vial IVPUSH 6 mg DAILY KYM Administration Diltiazem HCl 300 mg 04/09/20 09:00 04/14/20 08:22 Diltiazem Hcl Cd 300 Mg Cap.Er.24h PO 300 mg DAILY KYM Administration Diltiazem HCl 120 mg 04/09/20 09:00 04/13/20 08:15 Diltiazem Hcl Cd 120 Mg Cap.Er.Deg PO 120 mg DAILY [facility] Administration Protocol Docusate Sodium 100 mg 04/07/20 18:05 Docusate Sodium 100 Mg Capsule PO DAILY PRN Constipation Enoxaparin Sodium 40 mg 04/08/20 12:00 04/13/20 12:19 Enoxaparin Sodium 40 Mg/0.4 Ml Syringe SUBCUT 40 mg Q24H KYM Administration Ferrous Sulfate 324 mg 04/08/20 17:00 04/14/20 08:24 Ferrous Sulfate 324 Mg Tablet.Dr PO 324 mg BIDWM KYM Administration Folic Acid 1 mg 04/08/20 09:00 04/14/20 08:23 Folic Acid 1 Mg Tablet PO 1 mg DAILY KYM Administration Hydrochlorothiazide 12.5 mg 04/07/20 21:00 04/14/20 08:23 Hydrochlorothiazide 12.5 Mg Tablet PO 12.5 mg BID [facility] Administration Protocol Insulin Glargine 15 unit 04/08/20 09:00 04/14/20 08:18 Insulin Glargine,Hum.Rec.Anlog 100 Unit/Ml 10 Ml Vial SUBCUT 15 unit DAILY [facility] Administration Insulin Human Lispro 0 unit 04/07/20 18:05 04/14/20 08:18 Insulin Lispro 100 Unit/Ml 3 Ml Vial SUBCUT 2 unit QIDACHS [facility] Administration Protocol Latanoprost 1 drop 04/07/20 21:00 04/13/20 22:45 Latanoprost 0.005 % Ophth Jackeline 2.5 Ml Drops EYE-BOTH 1 drop BEDTIME KYM Administration Lisinopril 20 mg 04/07/20 21:00 04/14/20 08:22 Lisinopril 20 Mg Tablet PO 20 mg BID KYM Administration Protocol Melatonin 3 mg 04/09/20 21:00 04/13/20 22:43 Melatonin 3 Mg Tablet PO 3 mg BEDTIME KYM Administration Ondansetron HCl 4 mg 04/07/20 18:05 Ondansetron Hcl 4 Mg/2 Ml Vial IVPUSH Q8H PRN Nausea and Vomiting Pharmacy Consult 1 each 04/07/20 14:47 Consult Rx Perform Med Rec MISCELLANE ONCE PRN Consult order Sodium Chloride 3 ml 04/07/20 18:05 04/14/20 07:47 0.9 % Sodium Chloride Flush 3 Ml Syringe IVFLUSH 3 ml QSHIFT KYM Administration Tolterodine Tartrate 4 mg 04/08/20 09:00 04/14/20 08:24 Tolterodine Tartrate La 4 Mg Cap.Er.24h PO 4 mg DAILY [facility]YM Administration Labs CBC & Chem 7: 04/14/20 05:19 04/14/20 05:19 Microbiology Microbiology Results: Microbiology 04/07/20 14:45 Blood - Venous Blood Culture - Final No growth after 5 days. 04/07/20 14:37 Blood - Venous Blood Culture - Final No growth after 5 days. Assessment and Plan (1) 2018 novel coronavirus–infected pneumonia (NCIP)#8211;infected pneumonia (NCIP): Status: Acute (2) Hypoxia: Status: Acute (3) Anemia: Status: Acute Assessment and Plan: 70yo M with DM2, HTN, HLD, PVD, MASSIEL admitted for hypoxia due to COVID-19 pneumonia acute hypoxic respiratory failure due to COVID-19 pneumonia dexamethasone d#10/04, remdesivir completed improving slowly continue to wean Fe deficiency anemia - Hb stable p 2u pRBCs. FOBT negative. continue Fe supplementation HTN - continue lisinopril, HCTZ, diltiazem PVD - continue DAPT, cilostazol, statin HLD - continue statin DM2, A1c 6.9 - correction-dose lispro depression - continue bupropion VTE ppx - LMWH
[2020-04-14 11:10] LABS: Glucose, Whole Blood 336 mg/dL (60-115)
[2020-04-14] MEDS: Enoxaparin Sodium 40 MG/0.4 ML SYRINGE SUBCUT (11:41)
[2020-04-14] MEDS: Clotrimazole 1 % Cream 15 GM TUBE 1 APPL TOPICAL (11:41)
[2020-04-14 16:38] LABS: Glucose, Whole Blood 326 mg/dL (60-115)
[2020-04-14 20:37] LABS: Glucose, Whole Blood 397 mg/dL (60-115)
[2020-04-14] MEDS: Melatonin 3 MG TABLET PO (21:15)
[2020-04-14] MEDS: Atorvastatin Calcium 80 MG TABLET PO (21:15)
[2020-04-14] MEDS: Latanoprost 0.005 % Ophth Sol 2.5 ML DROPS 1 DROP EYE-BOTH (21:16)
--- NOTE | 2020-04-14 22:59 | PC.NURSE ---
04/14/20 20:00 pt was recorded to have a POC glucose of 397. Md was made aware. MD advised to cover patient per sliding scale. Pt was given 10 unit Humalog.
[2020-04-15] VITALS (14 sets, daily range): BP systolic 117–150; BP diastolic 66–77; PULSE 72–83; RESP 17–24; TEMP 36.1–36.7; O2SAT 90–96
[2020-04-15 06:42] LABS: Anion Gap 11 (12-20); Blood Urea Nitrogen 28 mg/dL (9-16); Calcium 8.6 mg/dL (8.4-10.2); Carbon Dioxide 27 mmol/L (22-29); Chloride 97 mmol/L (96-108); Creatinine Clr Calc Pharmacy 87.3; Estimated Glomerular Filt Rate > 60; Glucose Fasting 190 mg/dL (60-99); Potassium 4.7 mmol/L (3.3-5.1); Sodium 130 mmol/L (135-145)
[2020-04-15 07:02] LABS: Basophils Percent Auto 0.1 % (0-2); Eosinophils Absolute Auto 0.1 X10*3/uL (0.0-0.4); Eosinophils Percent Auto 0.7 % (0-4); Hemoglobin 10.2 g/dl (14.0-18.0); Imm Gran Abs Auto 0.32 X10*3/uL (0.00-0.03); Imm Gran Pct Auto 1.7 % (0.0-0.4); Lymphocytes Absolute Auto 1.3 X10*3/uL (1.2-4.9); Lymphocytes Percent Auto 7.1 % (20-40); MANUAL DIFF FLAG SCAN; Mean Corpuscular HGB Conc 30.9 g/dl (31.0-36.0); Mean Corpuscular Hemoglobin 20.4 pg (27.0-33.0); Mean Platelet Volume 10.1 fL (9.4-12.4); Monocytes Absolute Auto 2.1 X10*3/uL (0.1-1.2); Monocytes Percent Auto 11.2 % (2-11); Neutrophils Absolute Auto 14.8 X10*3/uL (2.0-8.3); Neutrophils Percent Auto 79.2 % (45-73); Platelet Count 574 X10*3/uL (160-400); Red Cell Distribution Width 27.1 % (11.0-16.0); SCAN SMEAR FLAG 1; White Blood Count 18.7 X10*3/uL (4.8-10.8)
[2020-04-15 07:43] LABS: SLIDE REVIEW VERIFIED
[2020-04-15 07:56] LABS: Glucose, Whole Blood 172 mg/dL (60-115)
[2020-04-15] MEDS: Insulin Lispro 100 UNIT/ML 3 ML VIAL SUBCUT ×4 (08:55→20:35)
[2020-04-15] MEDS: Insulin Glargine,Hum.rec.anlog 100 UNIT/ML 10 ML VIAL 15 UNIT SUBCUT (08:58)
[2020-04-15] MEDS: Aspirin Enteric Coated 81 MG TABLET.DR PO (08:59)
[2020-04-15] MEDS: hydroCHLOROthiazide 12.5 MG TABLET PO ×2 (08:59→20:37)
[2020-04-15] MEDS: dilTIAZem HCL CD 300 MG CAP.ER.24H PO (09:00)
[2020-04-15] MEDS: dilTIAZem HCL CD 120 MG CAP.ER.DEG PO (09:01)
[2020-04-15] MEDS: cilostazoL 100 MG TABLET PO ×2 (09:02→20:37)
[2020-04-15] MEDS: Clopidogrel Bisulfate 75 MG TABLET PO (09:02)
[2020-04-15] MEDS: Cyanocobalamin (Vitamin B-12) 1,000 MCG TABLET 1000 MCG PO (09:02)
[2020-04-15] MEDS: Ferrous Sulfate 324 MG TABLET.DR PO ×2 (09:02→16:30)
[2020-04-15] MEDS: Tolterodine Tartrate LA 4 MG CAP.ER.24H PO (09:02)
[2020-04-15] MEDS: Folic Acid 1 MG TABLET PO (09:02)
[2020-04-15] MEDS: buPROPion HCl XL 300 MG TAB.ER.24H PO (09:02)
[2020-04-15] MEDS: 0.9 % Sodium Chloride Flush 3 ML SYRINGE IVFLUSH ×3 (09:03→23:07)
[2020-04-15] MEDS: Clotrimazole 1 % Cream 15 GM TUBE 1 APPL TOPICAL (09:04)
--- NOTE | 2020-04-15 11:14 | P.PNIM_ITS ---
Subjective Subjective Date of Service: 04/15/20 Interval History: No complaints Cardiovascular Cardiovascular: Reports no additional cardiovascular complaints Gastrointestinal Gastrointestinal: Reports no additional gastrointestinal complaints Physical Exam Vital Signs: Vital Signs: Last Vital Signs Temp 97.0 F 04/15/20 08:00 Pulse 82 04/15/20 09:01 Resp 18 04/15/20 08:36 BP 141/77 H 04/15/20 09:01 Pulse Ox 90 L 04/15/20 08:00 Body Mass Index 28.5 General: AO X 3, no acute distress Resp: CTA bilateral CVS: S1,S2,RRR GI: soft, non tender, non distended Neuro: motor grossly intact Psych: appropriate affect Objective Data Current Medications Generic Name Dose Route Start Last Admin Trade Name Freq PRN Reason Stop Dose Admin Acetaminophen 650 mg 04/07/20 18:05 04/09/20 11:05 Acetaminophen 325 Mg Tablet PO 650 mg Q6H PRN Administration Pain, Mild (Pain Scale 1-3) Albuterol Sulfate 2 puff 04/07/20 18:05 Albuterol Sulfate 90 Mcg 8 Gm Inhaler INHALE Q4H PRN Shortness of Breath Aspirin 81 mg 04/08/20 09:00 04/15/20 08:59 Aspirin Enteric Coated 81 Mg Tablet.Dr PO 81 mg DAILY KYM Administration Atorvastatin Calcium 80 mg 04/07/20 21:00 04/14/20 21:15 Atorvastatin Calcium 80 Mg Tablet PO 80 mg BEDTIME KYM Administration Betamethasone Dipropion Augmented 1 appl 04/08/20 06:17 04/13/20 10:26 Betamethasone Dip Aug 0.05% Cr 15 Gm Tube TOPICAL 1 appl BID PRN Administration Rash Bupropion HCl 300 mg 04/08/20 09:00 04/15/20 09:02 Bupropion Hcl Xl 300 Mg Tab.Er.24h PO 300 mg DAILY KYM Administration Cilostazol 100 mg 04/07/20 21:00 04/15/20 09:02 Cilostazol 100 Mg Tablet PO 100 mg BID KYM Administration Clopidogrel Bisulfate 75 mg 04/08/20 09:00 04/15/20 09:02 Clopidogrel Bisulfate 75 Mg Tablet PO 75 mg DAILY KYM Administration Clotrimazole 1 appl 04/08/20 09:00 04/15/20 09:04 Clotrimazole 1 % Cream 15 Gm Tube TOPICAL 1 appl DAILY KYM Administration Protocol Cyanocobalamin 1,000 mcg 04/08/20 09:00 04/15/20 09:02 Cyanocobalamin (Vitamin B-12) 1,000 Mcg Tablet PO 1,000 mcg DAILY KYM Administration Dexamethasone Sodium Phosphate 6 mg 04/08/20 09:00 04/15/20 09:02 Dexamethasone Sod Phosphate/Pf 10 Mg/Ml Vial IVPUSH 6 mg DAILY KYM Administration Diltiazem HCl 300 mg 04/09/20 09:00 04/15/20 09:00 Diltiazem Hcl Cd 300 Mg Cap.Er.24h PO 300 mg DAILY KYM Administration Diltiazem HCl 120 mg 04/09/20 09:00 04/15/20 09:01 Diltiazem Hcl Cd 120 Mg Cap.Er.Deg PO 120 mg DAILY KYM Administration Protocol Docusate Sodium 100 mg 04/07/20 18:05 Docusate Sodium 100 Mg Capsule PO DAILY PRN Constipation Enoxaparin Sodium 40 mg 04/08/20 12:00 04/14/20 11:41 Enoxaparin Sodium 40 Mg/0.4 Ml Syringe SUBCUT 40 mg Q24H KYM Administration Ferrous Sulfate 324 mg 04/08/20 17:00 04/15/20 09:02 Ferrous Sulfate 324 Mg Tablet. PO 324 mg BIDWM KYM Administration Folic Acid 1 mg 04/08/20 09:00 04/15/20 09:02 Folic Acid 1 Mg Tablet PO 1 mg DAILY KYM Administration Hydrochlorothiazide 12.5 mg 04/07/20 21:00 04/15/20 08:59 Hydrochlorothiazide 12.5 Mg Tablet PO 12.5 mg BID KYM Administration Protocol Insulin Glargine 15 unit 04/08/20 09:00 04/15/20 08:58 Insulin Glargine,Hum.Rec.Anlog 100 Unit/Ml 10 Ml Vial SUBCUT 15 unit DAILY KYM Administration Insulin Human Lispro 0 unit 04/07/20 18:05 04/15/20 08:55 Insulin Lispro 100 Unit/Ml 3 Ml Vial SUBCUT 2 unit QIDACHS [facility] Administration Protocol Latanoprost 1 drop 04/07/20 21:00 04/14/20 21:16 Latanoprost 0.005 % Ophth Jackeline 2.5 Ml Drops EYE-BOTH 1 drop BEDTIME KYM Administration Lisinopril 20 mg 04/07/20 21:00 04/15/20 08:59 Lisinopril 20 Mg Tablet PO 20 mg BID KYM Administration Protocol Melatonin 3 mg 04/09/20 21:00 04/14/20 21:15 Melatonin 3 Mg Tablet PO 3 mg BEDTIME KYM Administration Ondansetron HCl 4 mg 04/07/20 18:05 Ondansetron Hcl 4 Mg/2 Ml Vial IVPUSH Q8H PRN Nausea and Vomiting Pharmacy Consult 1 each 04/07/20 14:47 Consult Rx Perform Med Rec MISCELLANE ONCE PRN Consult order Sodium Chloride 3 ml 04/07/20 18:05 04/15/20 09:03 0.9 % Sodium Chloride Flush 3 Ml Syringe IVFLUSH 3 ml QSHIFT KYM Administration Tolterodine Tartrate 4 mg 04/08/20 09:00 04/15/20 09:02 Tolterodine Tartrate La 4 Mg Cap.Er.24h PO 4 mg DAILY KYM Administration Labs CBC & Chem 7: 04/15/20 05:53 04/15/20 05:53 Microbiology Microbiology Results: Microbiology 04/07/20 14:45 Blood - Venous Blood Culture - Final No growth after 5 days. 04/07/20 14:37 Blood - Venous Blood Culture - Final No growth after 5 days. Assessment and Plan (1) 2019 novel coronavirus–infected pneumonia (NCIP)#8211;infected pneumonia (NCIP): Status: Acute (2) Hypoxia: Status: Acute (3) Anemia: Status: Acute Assessment and Plan: 70yo M with DM2, HTN, HLD, PVD, MASSIEL admitted for hypoxia due to COVID-19 pneumonia acute hypoxic respiratory failure due to COVID-19 pneumonia dexamethasone d#9/10, remdesivir completed improving slowly continue to wean Fe deficiency anemia - Hb stable p 2u pRBCs. FOBT negative. continue Fe supplementation HTN - continue lisinopril, HCTZ, diltiazem PVD - continue DAPT, cilostazol, statin HLD - continue statin DM2, A1c 6.9 - correction-dose lispro depression - continue bupropion VTE ppx - LMWH
[2020-04-15 11:25] LABS: Glucose, Whole Blood 306 mg/dL (60-115)
[2020-04-15] MEDS: Enoxaparin Sodium 40 MG/0.4 ML SYRINGE SUBCUT (13:10)
--- NOTE | 2020-04-15 13:47 | MHC.CM.PN ---
Patient with Covid-19, currently requiring HiFlow oxygen at 97% on 50L. RN reports patient?s oxygen needs have been increasing and has not been OOB. Lives with and [id number] and independent at baseline. DC needs pending course of disease.
[2020-04-15 16:18] LABS: Glucose, Whole Blood 379 mg/dL (60-115)
[2020-04-15 20:08] LABS: Glucose, Whole Blood 353 mg/dL (60-115)
[2020-04-15] MEDS: Melatonin 3 MG TABLET PO (20:37)
[2020-04-15] MEDS: Atorvastatin Calcium 80 MG TABLET PO (20:37)
[2020-04-15] MEDS: Latanoprost 0.005 % Ophth Sol 2.5 ML DROPS 1 DROP EYE-BOTH (23:07)
[2020-04-16] VITALS (16 sets, daily range): BP systolic 112–149; BP diastolic 62–79; PULSE 62–87; RESP 16–22; TEMP 36.1–36.5; O2SAT 91–98
[2020-04-16 07:54] LABS: Glucose, Whole Blood 266 mg/dL (60-115)
[2020-04-16] MEDS: dilTIAZem HCL CD 300 MG CAP.ER.24H PO (08:14)
[2020-04-16] MEDS: Insulin Lispro 100 UNIT/ML 3 ML VIAL SUBCUT ×5 (08:14→22:00)
[2020-04-16] MEDS: Insulin Glargine,Hum.rec.anlog 100 UNIT/ML 10 ML VIAL 15 UNIT SUBCUT (08:14)
[2020-04-16] MEDS: buPROPion HCl XL 300 MG TAB.ER.24H PO (08:14)
[2020-04-16] MEDS: 0.9 % Sodium Chloride Flush 3 ML SYRINGE IVFLUSH ×2 (08:14→17:18)
[2020-04-16] MEDS: Clopidogrel Bisulfate 75 MG TABLET PO (08:15)
[2020-04-16] MEDS: Ferrous Sulfate 324 MG TABLET.DR PO ×2 (08:15→17:18)
[2020-04-16] MEDS: Aspirin Enteric Coated 81 MG TABLET.DR PO (08:15)
[2020-04-16] MEDS: hydroCHLOROthiazide 12.5 MG TABLET PO ×2 (08:15→22:00)
[2020-04-16] MEDS: Tolterodine Tartrate LA 4 MG CAP.ER.24H PO (08:15)
[2020-04-16] MEDS: Folic Acid 1 MG TABLET PO (08:15)
[2020-04-16] MEDS: Cyanocobalamin (Vitamin B-12) 1,000 MCG TABLET 1000 MCG PO (08:15)
[2020-04-16] MEDS: cilostazoL 100 MG TABLET PO ×2 (08:15→22:01)
[2020-04-16] MEDS: Clotrimazole 1 % Cream 15 GM TUBE 1 APPL TOPICAL (08:17)
[2020-04-16] MEDS: dilTIAZem HCL CD 120 MG CAP.ER.DEG PO (08:18)
[2020-04-16 11:20] LABS: Glucose, Whole Blood 422 mg/dL (60-115)
--- NOTE | 2020-04-16 12:20 | P.PNIM_ITS ---
Subjective Subjective Date of Service: 04/16/20 Interval History: improving Cardiovascular Cardiovascular: Reports no additional cardiovascular complaints Gastrointestinal Gastrointestinal: Reports no additional gastrointestinal complaints Physical Exam Vital Signs: Vital Signs: Last Vital Signs Temp 97.3 F 04/16/20 11:20 Pulse 81 04/16/20 11:20 Resp 20 04/16/20 11:30 BP 116/62 04/16/20 11:20 Pulse Ox 94 04/16/20 11:20 Body Mass Index 28.5 General: AO X 3, no acute distress Resp: CTA bilateral CVS: S1,S2,RRR GI: soft, non tender, non distended Neuro: motor grossly intact Psych: appropriate affect Objective Data Current Medications Generic Name Dose Route Start Last Admin Trade Name Freq PRN Reason Stop Dose Admin Acetaminophen 650 mg 04/07/20 18:05 04/09/20 11:05 Acetaminophen 325 Mg Tablet PO 650 mg Q6H PRN Administration Pain, Mild (Pain Scale 1-3) Albuterol Sulfate 2 puff 04/07/20 18:05 Albuterol Sulfate 90 Mcg 8 Gm Inhaler INHALE Q4H PRN Shortness of Breath Aspirin 81 mg 04/08/20 09:00 04/16/20 08:15 Aspirin Enteric Coated 81 Mg Tablet.Dr PO 81 mg DAILY KYM Administration Atorvastatin Calcium 80 mg 04/07/20 21:00 04/15/20 20:37 Atorvastatin Calcium 80 Mg Tablet PO 80 mg BEDTIME KYM Administration Betamethasone Dipropion Augmented 1 appl 04/08/20 06:17 04/13/20 10:26 Betamethasone Dip Aug 0.05% Cr 15 Gm Tube TOPICAL 1 appl BID PRN Administration Rash Bupropion HCl 300 mg 04/08/20 09:00 04/16/20 08:14 Bupropion Hcl Xl 300 Mg Tab.Er.24h PO 300 mg DAILY KYM Administration Cilostazol 100 mg 04/07/20 21:00 04/16/20 08:15 Cilostazol 100 Mg Tablet PO 100 mg BID KYM Administration Clopidogrel Bisulfate 75 mg 04/08/20 09:00 04/16/20 08:15 Clopidogrel Bisulfate 75 Mg Tablet PO 75 mg DAILY KYM Administration Clotrimazole 1 appl 04/08/20 09:00 04/16/20 08:17 Clotrimazole 1 % Cream 15 Gm Tube TOPICAL 1 appl DAILY KYM Administration Protocol Cyanocobalamin 1,000 mcg 04/08/20 09:00 04/16/20 08:15 Cyanocobalamin (Vitamin B-12) 1,000 Mcg Tablet PO 1,000 mcg DAILY KYM Administration Dexamethasone Sodium Phosphate 6 mg 04/08/20 09:00 04/16/20 08:14 Dexamethasone Sod Phosphate/Pf 10 Mg/Ml Vial IVPUSH 6 mg DAILY KYM Administration Diltiazem HCl 300 mg 04/09/20 09:00 04/16/20 08:14 Diltiazem Hcl Cd 300 Mg Cap.Er.24h PO 300 mg DAILY KYM Administration Diltiazem HCl 120 mg 04/09/20 09:00 04/16/20 08:18 Diltiazem Hcl Cd 120 Mg Cap.Er.Deg PO 120 mg DAILY KYM Administration Protocol Docusate Sodium 100 mg 04/07/20 18:05 Docusate Sodium 100 Mg Capsule PO DAILY PRN Constipation Enoxaparin Sodium 40 mg 04/08/20 12:00 04/15/20 13:10 Enoxaparin Sodium 40 Mg/0.4 Ml Syringe SUBCUT 40 mg Q24H KYM Administration Ferrous Sulfate 324 mg 04/08/20 17:00 04/16/20 08:15 Ferrous Sulfate 324 Mg Tablet.Dr PO 324 mg BIDWM KYM Administration Folic Acid 1 mg 04/08/20 09:00 04/16/20 08:15 Folic Acid 1 Mg Tablet PO 1 mg DAILY KYM Administration Hydrochlorothiazide 12.5 mg 04/07/20 21:00 04/16/20 08:15 Hydrochlorothiazide 12.5 Mg Tablet PO 12.5 mg BID KYM Administration Protocol Insulin Glargine 15 unit 04/08/20 09:00 04/16/20 08:14 Insulin Glargine,Hum.Rec.Anlog 100 Unit/Ml 10 Ml Vial SUBCUT 15 unit DAILY KYM Administration Insulin Human Lispro 0 unit 04/07/20 18:05 04/16/20 08:14 Insulin Lispro 100 Unit/Ml 3 Ml Vial SUBCUT 6 unit QIDACHS [facility] Administration Protocol Latanoprost 1 drop 04/07/20 21:00 04/15/20 23:07 Latanoprost 0.005 % Ophth Jackeline 2.5 Ml Drops EYE-BOTH 1 drop BEDTIME KYM Administration Lisinopril 20 mg 04/07/20 21:00 04/16/20 08:15 Lisinopril 20 Mg Tablet PO 20 mg BID KYM Administration Protocol Melatonin 3 mg 04/09/20 21:00 04/15/20 20:37 Melatonin 3 Mg Tablet PO 3 mg BEDTIME KYM Administration Ondansetron HCl 4 mg 04/07/20 18:05 Ondansetron Hcl 4 Mg/2 Ml Vial IVPUSH Q8H PRN Nausea and Vomiting Pharmacy Consult 1 each 04/07/20 14:47 Consult Rx Perform Med Rec MISCELLANE ONCE PRN Consult order Sodium Chloride 3 ml 04/07/20 18:05 04/16/20 08:14 0.9 % Sodium Chloride Flush 3 Ml Syringe IVFLUSH 3 ml QSHIFT KYM Administration Tolterodine Tartrate 4 mg 04/08/20 09:00 04/16/20 08:15 Tolterodine Tartrate La 4 Mg Cap.Er.24h PO 4 mg DAILY KYM Administration Labs CBC & Chem 7: 04/15/20 05:53 04/15/20 05:53 Microbiology Microbiology Results: Microbiology 04/07/20 14:45 Blood - Venous Blood Culture - Final No growth after 5 days. 04/07/20 14:37 Blood - Venous Blood Culture - Final No growth after 5 days. Assessment and Plan (1) 2019 novel coronavirus–infected pneumonia (NCIP)#8211;infected pneumonia (NCIP): Status: Acute (2) Hypoxia: Status: Acute (3) Anemia: Status: Acute Assessment and Plan: 70yo M with DM2, HTN, HLD, PVD, MASSIEL admitted for hypoxia due to COVID-19 pneumonia acute hypoxic respiratory failure due to COVID-19 pneumonia dexamethasone d#12/04, remdesivir completed improving slowly continue to wean Fe deficiency anemia - Hb stable p 2u pRBCs. FOBT negative. continue Fe supplementation HTN - continue lisinopril, HCTZ, diltiazem PVD - continue DAPT, cilostazol, statin HLD - continue statin DM2, A1c 6.9 - correction-dose lispro depression - continue bupropion VTE ppx - LMWH
[2020-04-16] MEDS: Enoxaparin Sodium 40 MG/0.4 ML SYRINGE SUBCUT (12:22)
[2020-04-16 16:27] LABS: Glucose, Whole Blood 458 mg/dL (60-115)
[2020-04-16] MEDS: Insulin Lispro 100 UNIT/ML 3 ML VIAL 10 UNIT SUBCUT (17:18)
--- NOTE | 2020-04-16 17:56 | PC.NURSE ---
Pt alert and oriented. Ambulates in room with no assistance. Able to make needs known, ate well at all meals. Poc elevated, added extra coverage. Pt tolerated titration of high flow 50L/75%.
[2020-04-16 21:10] LABS: Glucose, Whole Blood 354 mg/dL (60-115)
[2020-04-16] MEDS: Atorvastatin Calcium 80 MG TABLET PO (22:00)
[2020-04-16] MEDS: Melatonin 3 MG TABLET PO (22:00)
[2020-04-16] MEDS: Latanoprost 0.005 % Ophth Sol 2.5 ML DROPS 1 DROP EYE-BOTH (22:13)
[2020-04-17] VITALS (14 sets, daily range): BP systolic 102–131; BP diastolic 55–74; PULSE 68–89; RESP 18–20; TEMP 36–36.4; O2SAT 86–99
[2020-04-17] MEDS: 0.9 % Sodium Chloride Flush 3 ML SYRINGE IVFLUSH ×4 (01:43→20:27)
--- NOTE | 2020-04-17 03:17 | PC.NURSE ---
Patient on high flow 100% 55L, sating 85-86%. Respiratory at bedside, non-rebreather placed on patient. Patient in no distress at this time. Maintaining sats above 95%. Will take off non-rebreather as tolerated.
[2020-04-17 07:40] LABS: Glucose, Whole Blood 212 mg/dL (60-115)
[2020-04-17] MEDS: Insulin Lispro 100 UNIT/ML 3 ML VIAL SUBCUT ×5 (08:26→20:27)
[2020-04-17] MEDS: Insulin Glargine,Hum.rec.anlog 100 UNIT/ML 10 ML VIAL 15 UNIT SUBCUT ×2 (08:26→20:26)
[2020-04-17] MEDS: hydroCHLOROthiazide 12.5 MG TABLET PO ×2 (08:28→20:25)
[2020-04-17] MEDS: Aspirin Enteric Coated 81 MG TABLET.DR PO (08:28)
[2020-04-17] MEDS: Folic Acid 1 MG TABLET PO (08:28)
[2020-04-17] MEDS: Cyanocobalamin (Vitamin B-12) 1,000 MCG TABLET 1000 MCG PO (08:28)
[2020-04-17] MEDS: dilTIAZem HCL CD 120 MG CAP.ER.DEG PO (08:28)
[2020-04-17] MEDS: Tolterodine Tartrate LA 4 MG CAP.ER.24H PO (08:28)
[2020-04-17] MEDS: Clopidogrel Bisulfate 75 MG TABLET PO (08:29)
[2020-04-17] MEDS: cilostazoL 100 MG TABLET PO ×2 (08:29→20:25)
[2020-04-17] MEDS: dilTIAZem HCL CD 300 MG CAP.ER.24H PO (08:29)
[2020-04-17] MEDS: Ferrous Sulfate 324 MG TABLET.DR PO ×2 (08:29→17:08)
[2020-04-17] MEDS: buPROPion HCl XL 300 MG TAB.ER.24H PO (08:29)
[2020-04-17] MEDS: Clotrimazole 1 % Cream 15 GM TUBE 1 APPL TOPICAL (08:36)
--- NOTE | 2020-04-17 11:25 | P.PNIM_ITS ---
Subjective Subjective Date of Service: 04/17/20 Interval History: no complaints Cardiovascular Cardiovascular: Reports no additional cardiovascular complaints Gastrointestinal Gastrointestinal: Reports no additional gastrointestinal complaints Physical Exam Vital Signs: Vital Signs: Last Vital Signs Temp 97.1 F 04/17/20 10:57 Pulse 80 04/17/20 10:57 Resp 20 04/17/20 10:57 BP 102/57 L 04/17/20 10:57 Pulse Ox 96 04/17/20 10:57 Body Mass Index 28.5 General: AO X 3, no acute distress Resp: CTA bilateral CVS: S1,S2,RRR GI: soft, non tender, non distended Neuro: motor grossly intact Psych: appropriate affect Objective Data Current Medications Generic Name Dose Route Start Last Admin Trade Name Freq PRN Reason Stop Dose Admin Acetaminophen 650 mg 04/07/20 18:05 04/09/20 11:05 Acetaminophen 325 Mg Tablet PO 650 mg Q6H PRN Administration Pain, Mild (Pain Scale 1-3) Albuterol Sulfate 2 puff 04/07/20 18:05 Albuterol Sulfate 90 Mcg 8 Gm Inhaler INHALE Q4H PRN Shortness of Breath Aspirin 81 mg 04/08/20 09:00 04/17/20 08:28 Aspirin Enteric Coated 81 Mg Tablet.Dr PO 81 mg DAILY KYM Administration Atorvastatin Calcium 80 mg 04/07/20 21:00 04/16/20 22:00 Atorvastatin Calcium 80 Mg Tablet PO 80 mg BEDTIME KYM Administration Betamethasone Dipropion Augmented 1 appl 04/08/20 06:17 04/13/20 10:26 Betamethasone Dip Aug 0.05% Cr 15 Gm Tube TOPICAL 1 appl BID PRN Administration Rash Bupropion HCl 300 mg 04/08/20 09:00 04/17/20 08:29 Bupropion Hcl Xl 300 Mg Tab.Er.24h PO 300 mg DAILY KYM Administration Cilostazol 100 mg 04/07/20 21:00 04/17/20 08:29 Cilostazol 100 Mg Tablet PO 100 mg BID KYM Administration Clopidogrel Bisulfate 75 mg 04/08/20 09:00 04/17/20 08:29 Clopidogrel Bisulfate 75 Mg Tablet PO 75 mg DAILY KYM Administration Clotrimazole 1 appl 04/08/20 09:00 04/17/20 08:36 Clotrimazole 1 % Cream 15 Gm Tube TOPICAL 1 appl DAILY KYM Administration Protocol Cyanocobalamin 1,000 mcg 04/08/20 09:00 04/17/20 08:28 Cyanocobalamin (Vitamin B-12) 1,000 Mcg Tablet PO 1,000 mcg DAILY KYM Administration Dexamethasone Sodium Phosphate 6 mg 04/08/20 09:00 04/17/20 08:27 Dexamethasone Sod Phosphate/Pf 10 Mg/Ml Vial IVPUSH 6 mg DAILY KYM Administration Diltiazem HCl 300 mg 04/09/20 09:00 04/17/20 08:29 Diltiazem Hcl Cd 300 Mg Cap.Er.24h PO 300 mg DAILY KYM Administration Diltiazem HCl 120 mg 04/09/20 09:00 04/17/20 08:28 Diltiazem Hcl Cd 120 Mg Cap.Er.Deg PO 120 mg DAILY KYM Administration Protocol Docusate Sodium 100 mg 04/07/20 18:05 Docusate Sodium 100 Mg Capsule PO DAILY PRN Constipation Enoxaparin Sodium 40 mg 04/08/20 12:00 04/16/20 12:22 Enoxaparin Sodium 40 Mg/0.4 Ml Syringe SUBCUT 40 mg Q24H KYM Administration Ferrous Sulfate 324 mg 04/08/20 17:00 04/17/20 08:29 Ferrous Sulfate 324 Mg Tablet.Dr PO 324 mg BIDWM KYM Administration Folic Acid 1 mg 04/08/20 09:00 04/17/20 08:28 Folic Acid 1 Mg Tablet PO 1 mg DAILY KYM Administration Hydrochlorothiazide 12.5 mg 04/07/20 21:00 04/17/20 08:28 Hydrochlorothiazide 12.5 Mg Tablet PO 12.5 mg BID KYM Administration Protocol Insulin Glargine 15 unit 04/08/20 09:00 04/17/20 08:26 Insulin Glargine,Hum.Rec.Anlog 100 Unit/Ml 10 Ml Vial SUBCUT 15 unit DAILY KYM Administration Insulin Human Lispro 0 unit 04/07/20 18:05 04/17/20 08:26 Insulin Lispro 100 Unit/Ml 3 Ml Vial SUBCUT 4 unit QIDACHS [facility] Administration Protocol Latanoprost 1 drop 04/07/20 21:00 04/16/20 22:13 Latanoprost 0.005 % Ophth Jackeline 2.5 Ml Drops EYE-BOTH 1 drop BEDTIME KYM Administration Lisinopril 20 mg 04/07/20 21:00 04/17/20 08:28 Lisinopril 20 Mg Tablet PO 20 mg BID KYM Administration Protocol Melatonin 3 mg 04/09/20 21:00 04/16/20 22:00 Melatonin 3 Mg Tablet PO 3 mg BEDTIME KYM Administration Ondansetron HCl 4 mg 04/07/20 18:05 Ondansetron Hcl 4 Mg/2 Ml Vial IVPUSH Q8H PRN Nausea and Vomiting Pharmacy Consult 1 each 04/07/20 14:47 Consult Rx Perform Med Rec MISCELLANE ONCE PRN Consult order Sodium Chloride 3 ml 04/07/20 18:05 04/17/20 08:27 0.9 % Sodium Chloride Flush 3 Ml Syringe IVFLUSH 3 ml QSHIFT KYM Administration Tolterodine Tartrate 4 mg 04/08/20 09:00 04/17/20 08:28 Tolterodine Tartrate La 4 Mg Cap.Er.24h PO 4 mg DAILY KYM Administration Labs CBC & Chem 7: 04/15/20 05:53 04/15/20 05:53 Microbiology Microbiology Results: Microbiology 04/07/20 14:45 Blood - Venous Blood Culture - Final No growth after 5 days. 04/07/20 14:37 Blood - Venous Blood Culture - Final No growth after 5 days. Assessment and Plan (1) 2019 novel coronavirus–infected pneumonia (NCIP)#8211;infected pneumonia (NCIP): Status: Acute (2) Hypoxia: Status: Acute (3) Anemia: Status: Acute Assessment and Plan: 70yo M with DM2, HTN, HLD, PVD, MASSIEL admitted for hypoxia due to COVID-19 pneumonia acute hypoxic respiratory failure due to COVID-19 pneumonia dexamethasone completed, remdesivir completed improving slowly continue to wean Fe deficiency anemia - Hb stable p 2u pRBCs. FOBT negative. continue Fe supplementation HTN - continue lisinopril, HCTZ, diltiazem PVD - continue DAPT, cilostazol, statin HLD - continue statin DM2, A1c 6.9 - correction-dose lispro depression - continue bupropion VTE ppx - LMWH
[2020-04-17 11:32] LABS: Glucose, Whole Blood 300 mg/dL (60-115)
[2020-04-17] MEDS: Enoxaparin Sodium 40 MG/0.4 ML SYRINGE SUBCUT (11:53)
[2020-04-17 16:37] LABS: Glucose, Whole Blood 404 mg/dL (60-115)
[2020-04-17 20:20] LABS: Glucose, Whole Blood 510 mg/dL (60-115)
[2020-04-17] MEDS: Atorvastatin Calcium 80 MG TABLET PO (20:25)
[2020-04-17] MEDS: Melatonin 3 MG TABLET PO (20:25)
[2020-04-17] MEDS: Latanoprost 0.005 % Ophth Sol 2.5 ML DROPS 1 DROP EYE-BOTH (20:33)
--- NOTE | 2020-04-17 23:08 | PC.NURSE ---
P: Patient's POC was found to be 519 at bedtime today. [employer]ENDER rechecked POC to verify value and it was still found to be 510. I: MD notified and ordered an additional 5 units of Insulin Lispro in addition to 10 units Lispro per sliding scale protocol. MD also increased the frequency of Lantus from once daily @ 0900 to BID (0900 and 2100). E: Will continue to monitor POC.
[2020-04-18] VITALS (13 sets, daily range): BP systolic 108–156; BP diastolic 58–72; PULSE 66–92; RESP 18–22; TEMP 36.1–36.6; O2SAT 90–98
[2020-04-18 07:17] LABS: Glucose, Whole Blood 519 mg/dL (60-115)
[2020-04-18 07:33] LABS: Glucose, Whole Blood 236 mg/dL (60-115)
[2020-04-18] MEDS: Insulin Lispro 100 UNIT/ML 3 ML VIAL SUBCUT ×4 (10:39→22:37)
[2020-04-18] MEDS: Insulin Glargine,Hum.rec.anlog 100 UNIT/ML 10 ML VIAL 15 UNIT SUBCUT (10:41)
[2020-04-18] MEDS: hydroCHLOROthiazide 12.5 MG TABLET PO ×2 (10:41→21:54)
[2020-04-18] MEDS: Clopidogrel Bisulfate 75 MG TABLET PO (10:42)
[2020-04-18] MEDS: Cyanocobalamin (Vitamin B-12) 1,000 MCG TABLET 1000 MCG PO (10:42)
[2020-04-18] MEDS: cilostazoL 100 MG TABLET PO ×2 (10:42→21:52)
[2020-04-18] MEDS: Ferrous Sulfate 324 MG TABLET.DR PO ×2 (10:42→17:21)
[2020-04-18] MEDS: Aspirin Enteric Coated 81 MG TABLET.DR PO (10:42)
[2020-04-18] MEDS: buPROPion HCl XL 300 MG TAB.ER.24H PO (10:42)
[2020-04-18] MEDS: Tolterodine Tartrate LA 4 MG CAP.ER.24H PO (10:43)
[2020-04-18] MEDS: dilTIAZem HCL CD 120 MG CAP.ER.DEG PO (10:43)
[2020-04-18] MEDS: Folic Acid 1 MG TABLET PO (10:43)
[2020-04-18] MEDS: dilTIAZem HCL CD 300 MG CAP.ER.24H PO (10:43)
[2020-04-18] MEDS: Clotrimazole 1 % Cream 15 GM TUBE 1 APPL TOPICAL (10:44)
[2020-04-18 12:10] LABS: Glucose, Whole Blood 321 mg/dL (60-115)
--- NOTE | 2020-04-18 12:10 | HO.PM.IMPN ---
Subjective Subjective Date of Service: 04/18/20 Interval History: feels fine Cardiovascular Cardiovascular: Reports no additional cardiovascular complaints Gastrointestinal Gastrointestinal: Reports no additional gastrointestinal complaints Physical Exam Vital Signs: Vital Signs: Last Vital Signs Temp 97.8 F 04/18/20 12:00 Pulse 83 04/18/20 12:00 Resp 20 04/18/20 12:00 BP 112/64 04/18/20 12:00 Pulse Ox 92 04/18/20 12:00 Body Mass Index 28.5 General: AO X 3, no acute distress Resp: CTA bilateral CVS: S1,S2,RRR GI: soft, non tender, non distended Neuro: motor grossly intact Psych: appropriate affect Objective Data Current Medications Generic Name Dose Route Start Last Admin Trade Name Freq PRN Reason Stop Dose Admin Acetaminophen 650 mg 04/07/20 18:05 04/09/20 11:05 Acetaminophen 325 Mg Tablet PO 650 mg Q6H PRN Administration Pain, Mild (Pain Scale 1-3) Albuterol Sulfate 2 puff 04/07/20 18:05 Albuterol Sulfate 90 Mcg 8 Gm Inhaler INHALE Q4H PRN Shortness of Breath Aspirin 81 mg 04/08/20 09:00 04/18/20 10:42 Aspirin Enteric Coated 81 Mg Tablet.Dr PO 81 mg DAILY KYM Administration Atorvastatin Calcium 80 mg 04/07/20 21:00 04/17/20 20:25 Atorvastatin Calcium 80 Mg Tablet PO 80 mg BEDTIME KYM Administration Betamethasone Dipropion Augmented 1 appl 04/08/20 06:17 04/13/20 10:26 Betamethasone Dip Aug 0.05% Cr 15 Gm Tube TOPICAL 1 appl BID PRN Administration Rash Bupropion HCl 300 mg 04/08/20 09:00 04/18/20 10:42 Bupropion Hcl Xl 300 Mg Tab.Er.24h PO 300 mg DAILY KMY Administration Cilostazol 100 mg 04/07/20 21:00 04/18/20 10:42 Cilostazol 100 Mg Tablet PO 100 mg BID KYM Administration Clopidogrel Bisulfate 75 mg 04/08/20 09:00 04/18/20 10:42 Clopidogrel Bisulfate 75 Mg Tablet PO 75 mg DAILY KYM Administration Clotrimazole 1 appl 04/08/20 09:00 04/18/20 10:44 Clotrimazole 1 % Cream 15 Gm Tube TOPICAL 1 appl DAILY KYM Administration Protocol Cyanocobalamin 1,000 mcg 04/08/20 09:00 04/18/20 10:42 Cyanocobalamin (Vitamin B-12) 1,000 Mcg Tablet PO 1,000 mcg DAILY KYM Administration Diltiazem HCl 300 mg 04/09/20 09:00 04/18/20 10:43 Diltiazem Hcl Cd 300 Mg Cap.Er.24h PO 300 mg DAILY KYM Administration Diltiazem HCl 120 mg 04/09/20 09:00 04/18/20 10:43 Diltiazem Hcl Cd 120 Mg Cap.Er.Deg PO 120 mg DAILY KYM Administration Protocol Docusate Sodium 100 mg 04/07/20 18:05 Docusate Sodium 100 Mg Capsule PO DAILY PRN Constipation Enoxaparin Sodium 40 mg 04/08/20 12:00 04/17/20 11:53 Enoxaparin Sodium 40 Mg/0.4 Ml Syringe SUBCUT 40 mg Q24H KYM Administration Ferrous Sulfate 324 mg 04/08/20 17:00 04/18/20 10:42 Ferrous Sulfate 324 Mg Tablet.Dr PO 324 mg BIDWM KYM Administration Folic Acid 1 mg 04/08/20 09:00 04/18/20 10:43 Folic Acid 1 Mg Tablet PO 1 mg DAILY KYM Administration Hydrochlorothiazide 12.5 mg 04/07/20 21:00 04/18/20 10:41 Hydrochlorothiazide 12.5 Mg Tablet PO 12.5 mg BID KYM Administration Protocol Insulin Human Lispro 0 unit 04/07/20 18:05 04/18/20 10:39 Insulin Lispro 100 Unit/Ml 3 Ml Vial SUBCUT 4 unit QIDACHS KYM Administration Protocol Latanoprost 1 drop 04/07/20 21:00 04/17/20 20:33 Latanoprost 0.005 % Ophth Jackeline 2.5 Ml Drops EYE-BOTH 1 drop BEDTIME KYM Administration Lisinopril 20 mg 04/07/20 21:00 04/18/20 10:42 Lisinopril 20 Mg Tablet PO 20 mg BID KYM Administration Protocol Melatonin 3 mg 04/09/20 21:00 04/17/20 20:25 Melatonin 3 Mg Tablet PO 3 mg BEDTIME KYM Administration Ondansetron HCl 4 mg 04/07/20 18:05 Ondansetron Hcl 4 Mg/2 Ml Vial IVPUSH Q8H PRN Nausea and Vomiting Pharmacy Consult 1 each 04/07/20 14:47 Consult Rx Perform Med Rec MISCELLANE ONCE PRN Consult order Sodium Chloride 3 ml 04/07/20 18:05 04/17/20 20:27 0.9 % Sodium Chloride Flush 3 Ml Syringe IVFLUSH 3 ml QSHIFT KYM Administration Tolterodine Tartrate 4 mg 04/08/20 09:00 04/18/20 10:43 Tolterodine Tartrate La 4 Mg Cap.Er.24h PO 4 mg DAILY KYM Administration Labs CBC & Chem 7: 04/15/20 05:53 04/15/20 05:53 Microbiology Microbiology Results: Microbiology 04/07/20 14:45 Blood - Venous Blood Culture - Final No growth after 5 days. 04/07/20 14:37 Blood - Venous Blood Culture - Final No growth after 5 days. Assessment and Plan (1) 2018 novel coronavirus–infected pneumonia (NCIP)#8211;infected pneumonia (NCIP): Status: Acute (2) Hypoxia: Status: Acute (3) Anemia: Status: Acute Assessment and Plan: 70yo M with DM2, HTN, HLD, PVD, MASSIEL admitted for hypoxia due to COVID-19 pneumonia acute hypoxic respiratory failure due to COVID-19 pneumonia dexamethasone completed, remdesivir completed improving slowly continue to wean mostly asymptomatic now, but still requiring moderate settings on highflow Fe deficiency anemia - Hb stable p 2u pRBCs. FOBT negative. continue Fe supplementation HTN - continue lisinopril, HCTZ, diltiazem PVD - continue DAPT, cilostazol, statin HLD - continue statin DM2, A1c 6.9 - correction-dose lispro depression - continue bupropion VTE ppx - LMWH
[2020-04-18] MEDS: Enoxaparin Sodium 40 MG/0.4 ML SYRINGE SUBCUT (13:03)
[2020-04-18] MEDS: 0.9 % Sodium Chloride Flush 3 ML SYRINGE IVFLUSH ×3 (13:07→21:58)
[2020-04-18] MEDS: Acetaminophen 325 MG TABLET 650 MG PO (14:10)
[2020-04-18 16:54] LABS: Glucose, Whole Blood 239 mg/dL (60-115)
[2020-04-18 20:47] LABS: Glucose, Whole Blood 356 mg/dL (60-115)
[2020-04-18] MEDS: Melatonin 3 MG TABLET PO (21:52)
[2020-04-18] MEDS: Atorvastatin Calcium 80 MG TABLET PO (21:52)
[2020-04-18] MEDS: Insulin Glargine,Hum.rec.anlog 100 UNIT/ML 10 ML VIAL 20 UNIT SUBCUT (21:54)
[2020-04-18] MEDS: Latanoprost 0.005 % Ophth Sol 2.5 ML DROPS 1 DROP EYE-BOTH (21:57)
[2020-04-18] MEDS: guaiFENesin DM 100/10/5 ML 5 ML SYRUP PO (23:31)
[2020-04-19] VITALS (9 sets, daily range): BP systolic 92–153; BP diastolic 54–64; PULSE 71–89; RESP 20–22; TEMP 35.7–37; O2SAT 90–98
[2020-04-19 06:44] LABS: Basophils Percent Auto 0.1 % (0-2); Eosinophils Absolute Auto 0.7 X10*3/uL (0.0-0.4); Hematocrit 35.2 % (42-52); Hemoglobin 10.7 g/dl (14.0-18.0); Imm Gran Abs Auto 0.25 X10*3/uL (0.00-0.03); Imm Gran Pct Auto 1.1 % (0.0-0.4); Lymphocytes Absolute Auto 1.2 X10*3/uL (1.2-4.9); Lymphocytes Percent Auto 5.3 % (20-40); MANUAL DIFF FLAG SCAN; Mean Corpuscular HGB Conc 30.4 g/dl (31.0-36.0); Mean Corpuscular Hemoglobin 20.7 pg (27.0-33.0); Mean Platelet Volume 9.8 fL (9.4-12.4); Monocytes Absolute Auto 2.6 X10*3/uL (0.1-1.2); Monocytes Percent Auto 11.9 % (2-11); Neutrophils Absolute Auto 17.1 X10*3/uL (2.0-8.3); Neutrophils Percent Auto 78.6 % (45-73); Platelet Count 617 X10*3/uL (160-400); Red Blood Count 5.18 X10*6/uL (4.60-5.80); Red Cell Distribution Width 28.3 % (11.0-16.0); SCAN SMEAR FLAG 1; White Blood Count 21.7 X10*3/uL (4.8-10.8)
[2020-04-19 06:54] LABS: Anion Gap 15 (12-20); Blood Urea Nitrogen 38 mg/dL (9-16); Calcium 8.7 mg/dL (8.4-10.2); Carbon Dioxide 22 mmol/L (22-29); Chloride 104 mmol/L (96-108); Creatinine Clr Calc Pharmacy 76.2; Estimated Glomerular Filt Rate > 60; Glucose Fasting 118 mg/dL (60-99); Sodium 136 mmol/L (135-145)
[2020-04-19 07:44] LABS: Glucose, Whole Blood 134 mg/dL (60-115)
[2020-04-19 07:47] LABS: SLIDE REVIEW VERIFIED
[2020-04-19] MEDS: Insulin Glargine,Hum.rec.anlog 100 UNIT/ML 10 ML VIAL 20 UNIT SUBCUT ×2 (09:04→21:26)
[2020-04-19] MEDS: hydroCHLOROthiazide 12.5 MG TABLET PO (09:05)
[2020-04-19] MEDS: dilTIAZem HCL CD 300 MG CAP.ER.24H PO (09:05)
[2020-04-19] MEDS: buPROPion HCl XL 300 MG TAB.ER.24H PO (09:05)
[2020-04-19] MEDS: 0.9 % Sodium Chloride Flush 3 ML SYRINGE IVFLUSH ×3 (09:05→19:48)
[2020-04-19] MEDS: Clotrimazole 1 % Cream 15 GM TUBE 1 APPL TOPICAL (09:06)
[2020-04-19] MEDS: Clopidogrel Bisulfate 75 MG TABLET PO (09:06)
[2020-04-19] MEDS: Aspirin Enteric Coated 81 MG TABLET.DR PO (09:06)
[2020-04-19] MEDS: dilTIAZem HCL CD 120 MG CAP.ER.DEG PO (09:06)
[2020-04-19] MEDS: Tolterodine Tartrate LA 4 MG CAP.ER.24H PO (09:06)
[2020-04-19] MEDS: cilostazoL 100 MG TABLET PO ×2 (09:06→19:48)
[2020-04-19] MEDS: Cyanocobalamin (Vitamin B-12) 1,000 MCG TABLET 1000 MCG PO (09:06)
[2020-04-19] MEDS: Folic Acid 1 MG TABLET PO (09:06)
[2020-04-19] MEDS: Ferrous Sulfate 324 MG TABLET.DR PO ×2 (09:09→16:45)
[2020-04-19 11:21] LABS: Glucose, Whole Blood 231 mg/dL (60-115)
[2020-04-19] MEDS: Enoxaparin Sodium 40 MG/0.4 ML SYRINGE SUBCUT (11:57)
[2020-04-19] MEDS: Insulin Lispro 100 UNIT/ML 3 ML VIAL SUBCUT ×3 (11:57→21:26)
--- NOTE | 2020-04-19 16:22 | P.PNIM_ITS ---
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 General no headache, no dizziness, no fever chills. CVS no chest pain, no palpitation. Respiratory no cough, no sputum production, no shortness of breath Gastrointestinal no nausea, no vomiting, no abdominal pain Physical Exam Vital Signs: Vital Signs: Last Vital Signs Temp 96.6 F L 04/19/20 15:53 Pulse 71 04/19/20 15:53 Resp 20 04/19/20 15:53 BP 102/56 L 04/19/20 15:53 Pulse Ox 91 L 04/19/20 15:53 Body Mass Index 28.5 General patient resting comfortably in no acute distress. Neck is supple no JVD. CVS regular rate rhythm, Respiratory lungs clear to auscultation, no respiratory distress, no wheeze, no rhonchi. Gastrointestinal abdomen soft, nontender, bowel sounds audible, no guarding , no rigidity. Extremities no clubbing, cyanosis or edema. Neuro nonfocal, speech clear. Skin no rash Objective Data Current Medications Generic Name Dose Route Start Last Admin Trade Name Freq PRN Reason Stop Dose Admin Acetaminophen 650 mg 04/07/20 18:05 04/18/20 14:10 Acetaminophen 325 Mg Tablet PO 650 mg Q6H PRN Administration Pain, Mild (Pain Scale 1-3) Albuterol Sulfate 2 puff 04/07/20 18:05 Albuterol Sulfate 90 Mcg 8 Gm Inhaler INHALE Q4H PRN Shortness of Breath Aspirin 81 mg 04/08/20 09:00 04/19/20 09:06 Aspirin Enteric Coated 81 Mg Tablet.Dr PO 81 mg DAILY KYM Administration Atorvastatin Calcium 80 mg 04/07/20 21:00 04/18/20 21:52 Atorvastatin Calcium 80 Mg Tablet PO 80 mg BEDTIME KYM Administration Betamethasone Dipropion Augmented 1 appl 04/08/20 06:17 04/13/20 10:26 Betamethasone Dip Aug 0.05% Cr 15 Gm Tube TOPICAL 1 appl BID PRN Administration Rash Bupropion HCl 300 mg 04/08/20 09:00 04/19/20 09:05 Bupropion Hcl Xl 300 Mg Tab.Er.24h PO 300 mg DAILY KYM Administration Cilostazol 100 mg 04/07/20 21:00 04/19/20 09:06 Cilostazol 100 Mg Tablet PO 100 mg BID KYM Administration Clopidogrel Bisulfate 75 mg 04/08/20 09:00 04/19/20 09:06 Clopidogrel Bisulfate 75 Mg Tablet PO 75 mg DAILY KYM Administration Clotrimazole 1 appl 04/08/20 09:00 04/19/20 09:06 Clotrimazole 1 % Cream 15 Gm Tube TOPICAL 1 appl DAILY KYM Administration Protocol Cyanocobalamin 1,000 mcg 04/08/20 09:00 04/19/20 09:06 Cyanocobalamin (Vitamin B-12) 1,000 Mcg Tablet PO 1,000 mcg DAILY KYM Administration Diltiazem HCl 300 mg 04/09/20 09:00 04/19/20 09:05 Diltiazem Hcl Cd 300 Mg Cap.Er.24h PO 300 mg DAILY KYM Administration Diltiazem HCl 120 mg 04/09/20 09:00 04/19/20 09:06 Diltiazem Hcl Cd 120 Mg Cap.Er.Deg PO 120 mg DAILY [facility] Administration Protocol Docusate Sodium 100 mg 04/07/20 18:05 Docusate Sodium 100 Mg Capsule PO DAILY PRN Constipation Enoxaparin Sodium 40 mg 04/08/20 12:00 04/19/20 11:57 Enoxaparin Sodium 40 Mg/0.4 Ml Syringe SUBCUT 40 mg Q24H KYM Administration Ferrous Sulfate 324 mg 04/08/20 17:00 04/19/20 09:09 Ferrous Sulfate 324 Mg Tablet.Dr PO 324 mg BIDWM KYM Administration Folic Acid 1 mg 04/08/20 09:00 04/19/20 09:06 Folic Acid 1 Mg Tablet PO 1 mg DAILY KYM Administration Guaifenesin/Dextromethorphan 5 ml 04/18/20 23:14 04/18/20 23:31 Guaifenesin Dm 100/10/5 Ml 5 Ml Syrup PO 5 ml Q6H PRN Administration Cough Hydrochlorothiazide 12.5 mg 04/07/20 21:00 04/19/20 09:05 Hydrochlorothiazide 12.5 Mg Tablet PO 12.5 mg BID [facility] Administration Protocol Insulin Glargine 20 unit 04/18/20 21:00 04/19/20 09:04 Insulin Glargine,Hum.Rec.Anlog 100 Unit/Ml 10 Ml Vial SUBCUT 20 unit BID KYM Administration Insulin Human Lispro 0 unit 04/07/20 18:05 04/19/20 11:57 Insulin Lispro 100 Unit/Ml 3 Ml Vial SUBCUT 4 unit QIDACHS KYM Administration Protocol Latanoprost 1 drop 04/07/20 21:00 04/18/20 21:57 Latanoprost 0.005 % Ophth Jackeline 2.5 Ml Drops EYE-BOTH 1 drop BEDTIME KYM Administration Lisinopril 20 mg 04/07/20 21:00 04/19/20 09:05 Lisinopril 20 Mg Tablet PO 20 mg BID KYM Administration Protocol Melatonin 3 mg 04/09/20 21:00 04/18/20 21:52 Melatonin 3 Mg Tablet PO 3 mg BEDTIME KYM Administration Ondansetron HCl 4 mg 04/07/20 18:05 Ondansetron Hcl 4 Mg/2 Ml Vial IVPUSH Q8H PRN Nausea and Vomiting Pharmacy Consult 1 each 04/07/20 14:47 Consult Rx Perform Med Rec MISCELLANE ONCE PRN Consult order Sodium Chloride 3 ml 04/07/20 18:05 04/19/20 09:05 0.9 % Sodium Chloride Flush 3 Ml Syringe IVFLUSH 3 ml QSHIFT KYM Administration Tolterodine Tartrate 4 mg 04/08/20 09:00 04/19/20 09:06 Tolterodine Tartrate La 4 Mg Cap.Er.24h PO 4 mg DAILY KYM Administration Labs CBC & Chem 7: 04/19/20 05:55 04/19/20 05:55 Microbiology Microbiology Results: Microbiology 04/07/20 14:45 Blood - Venous Blood Culture - Final No growth after 5 days. 04/07/20 14:37 Blood - Venous Blood Culture - Final No growth after 5 days. Assessment and Plan (1) 2019 novel coronavirus–infected pneumonia (NCIP)#8211;infected pneumonia (NCIP): Status: Acute (2) Hypoxia: Status: Acute (3) Anemia: Status: Acute Assessment and Plan: 70yo M with DM2, HTN, HLD, PVD, MASSIEL admitted for hypoxia due to COVID-19 pneumonia acute hypoxic respiratory failure due to COVID-19 pneumonia Patient finished course of dexamethasone and remdesivir offers no acute complaints still requiring high-flow oxygen and non-rebreather mask, lung sounds are clear therefore will place patient on incentive spirometry recommend out of bed to chair and wean oxygen as tolerated Fe deficiency anemia Hb stable sp 2u pRBCs. FOBT negative. continue Fe supplementation HTN Noted to have low blood pressure this morning will discontinue hydrochlorothiazide and continue lisinopril and diltiazem PVD continue Plavix, cilostazol, and statin HLD continue statin DM2, A1c 6.9 Blood sugars stable continue correction-dose lispro and Lantus 20 units b.i.d. blood sugar trending down since steroids discontinued will follow blood sugar closely depression continue bupropion VTE ppx continue LMWH
[2020-04-19 16:36] LABS: Glucose, Whole Blood 283 mg/dL (60-115)
[2020-04-19] MEDS: guaiFENesin DM 100/10/5 ML 5 ML SYRUP PO (19:47)
[2020-04-19] MEDS: Melatonin 3 MG TABLET PO (19:48)
[2020-04-19] MEDS: Atorvastatin Calcium 80 MG TABLET PO (19:48)
[2020-04-19 20:41] LABS: Glucose, Whole Blood 341 mg/dL (60-115)
--- NOTE | 2020-04-19 20:41 | PC.RT ---
WENT TO GO SEE PATIENT AT 20;35. PT WAS GRUNTING AND FOUND PATINET SATS 50'S ON 10 LITER NASAL CANNULA WITH OXYGENTANKS EMPTY. PT PLACED ON A NRB AND SATS CIMBED UP TO 90'S VERY QUICKLY. PT RESTING COMFORTABLY AT THIS TIME. RN AWARE.
[2020-04-19] MEDS: Latanoprost 0.005 % Ophth Sol 2.5 ML DROPS 1 DROP EYE-BOTH (21:27)
[2020-04-20] VITALS (11 sets, daily range): BP systolic 98–121; BP diastolic 55–68; PULSE 67–81; RESP 18–22; TEMP 36–36.8; O2SAT 92–99
[2020-04-20 07:37] LABS: Glucose, Whole Blood 247 mg/dL (60-115)
[2020-04-20] MEDS: Insulin Lispro 100 UNIT/ML 3 ML VIAL SUBCUT ×3 (08:21→16:39)
[2020-04-20] MEDS: Folic Acid 1 MG TABLET PO (08:22)
[2020-04-20] MEDS: Tolterodine Tartrate LA 4 MG CAP.ER.24H PO (08:22)
[2020-04-20] MEDS: 0.9 % Sodium Chloride Flush 3 ML SYRINGE IVFLUSH ×3 (08:22→21:42)
[2020-04-20] MEDS: Insulin Glargine,Hum.rec.anlog 100 UNIT/ML 10 ML VIAL 20 UNIT SUBCUT (08:22)
[2020-04-20] MEDS: cilostazoL 100 MG TABLET PO ×2 (08:22→21:42)
[2020-04-20] MEDS: buPROPion HCl XL 300 MG TAB.ER.24H PO (08:23)
[2020-04-20] MEDS: Cyanocobalamin (Vitamin B-12) 1,000 MCG TABLET 1000 MCG PO (08:23)
[2020-04-20] MEDS: Ferrous Sulfate 324 MG TABLET.DR PO ×2 (08:24→16:39)
[2020-04-20] MEDS: Clopidogrel Bisulfate 75 MG TABLET PO (08:25)
[2020-04-20] MEDS: Aspirin Enteric Coated 81 MG TABLET.DR PO (08:25)
[2020-04-20] MEDS: Clotrimazole 1 % Cream 15 GM TUBE 1 APPL TOPICAL (08:25)
[2020-04-20] MEDS: dilTIAZem HCL CD 120 MG CAP.ER.DEG PO (08:30)
[2020-04-20] MEDS: dilTIAZem HCL CD 300 MG CAP.ER.24H PO (08:30)
[2020-04-20 11:53] LABS: Glucose, Whole Blood 349 mg/dL (60-115)
[2020-04-20] MEDS: Acetaminophen 325 MG TABLET 650 MG PO (11:55)
[2020-04-20] MEDS: Enoxaparin Sodium 40 MG/0.4 ML SYRINGE SUBCUT (11:55)
--- NOTE | 2020-04-20 12:07 | MHC.CM.PN ---
DP Male 70 DX COVID+ DP Initially was home with family via BLS. PT continues to require supplemental oxygen 15L via [facility]. Nursing is in the process of weaning the O2. Patient likely to dc to home with services and oxygen vs STR. CM will continue to follow to assess for discharge needs as Pt recovers.
[2020-04-20 16:33] LABS: Glucose, Whole Blood 316 mg/dL (60-115)
--- NOTE | 2020-04-20 17:45 | P.PNIM_ITS ---
Subjective Subjective Date of Service: 04/21/20 Interval History: Patient sitting in chair complaining of discomfort with high- flow oxygen cannula otherwise denies shortness of breath but later in the afternoon nurse noted the patient appears short of breath, no fever, no chills. ROS General no headache, no dizziness, no fever chills. CVS no chest pain, no palpitation. Respiratory no cough, no sputum production, no shortness of breath Gastrointestinal no nausea, no vomiting, no abdominal pain Physical Exam Vital Signs: Vital Signs: Last Vital Signs Temp 97.0 F 04/20/20 15:26 Pulse 68 04/20/20 15:26 Resp 18 04/20/20 15: BP 104/55 L 04/20/20 15: Pulse Ox 93 04/20/20 15: Body Mass Index 28.5 General patient resting comfortably , no acute distress. Neck is supple no JVD. CVS regular rate rhythm, Respiratory lungs clear to auscultation, no respiratory distress, no wheeze, no rhonchi. Gastrointestinal abdomen soft, nontender, bowel sounds audible, no guarding , no rigidity. Extremities no clubbing, cyanosis or edema. Neuro nonfocal, speech clear. Skin no rash Objective Data Current Medications Generic Name Dose Route Start Last Admin Trade Name Freq PRN Reason Stop Dose Admin Acetaminophen 650 mg 04/07/20 18:05 04/20/20 11:55 Acetaminophen 325 Mg Tablet PO 650 mg Q6H PRN Administration Pain, Mild (Pain Scale 1-3) Albuterol Sulfate 2 puff 04/07/20 18:05 Albuterol Sulfate 90 Mcg 8 Gm Inhaler INHALE Q4H PRN Shortness of Breath Aspirin 81 mg 04/08/20 09:00 04/20/20 08:25 Aspirin Enteric Coated 81 Mg Tablet. PO 81 mg DAILY KYM Administration Atorvastatin Calcium 80 mg 04/07/20 21:00 04/19/20 19:48 Atorvastatin Calcium 80 Mg Tablet PO 80 mg BEDTIME KYM Administration Betamethasone Dipropion Augmented 1 appl 04/08/20 06:17 04/13/20 10:26 Betamethasone Dip Aug 0.05% Cr 15 Gm Tube TOPICAL 1 appl BID PRN Administration Rash Bupropion HCl 300 mg 04/08/20 09:00 04/20/20 08:23 Bupropion Hcl Xl 300 Mg Tab.Er.24h PO 300 mg DAILY KYM Administration Cilostazol 100 mg 04/07/20 21:00 04/20/20 08:22 Cilostazol 100 Mg Tablet PO 100 mg BID KYM Administration Clopidogrel Bisulfate 75 mg 04/08/20 09:00 04/20/20 08:25 Clopidogrel Bisulfate 75 Mg Tablet PO 75 mg DAILY KYM Administration Clotrimazole 1 appl 04/08/20 09:00 04/20/20 08:25 Clotrimazole 1 % Cream 15 Gm Tube TOPICAL 1 appl DAILY [facility] Administration Protocol Cyanocobalamin 1,000 mcg 04/08/20 09:00 04/20/20 08:23 Cyanocobalamin (Vitamin B-12) 1,000 Mcg Tablet PO 1,000 mcg DAILY [facility] Administration Diltiazem HCl 300 mg 04/09/20 09:00 04/20/20 08:30 Diltiazem Hcl Cd 300 Mg Cap.Er.24h PO 300 mg DAILY KYM Administration Diltiazem HCl 120 mg 04/09/20 09:00 04/20/20 08:30 Diltiazem Hcl Cd 120 Mg Cap.Er.Deg PO 120 mg DAILY [facility] Administration Protocol Docusate Sodium 100 mg 04/07/20 18:05 Docusate Sodium 100 Mg Capsule PO DAILY PRN Constipation Enoxaparin Sodium 40 mg 04/08/20 12:00 04/20/20 11:55 Enoxaparin Sodium 40 Mg/0.4 Ml Syringe SUBCUT 40 mg Q24H [facility] Administration Ferrous Sulfate 324 mg 04/08/20 17:00 04/20/20 16:39 Ferrous Sulfate 324 Mg Tablet. PO 324 mg BIDWM [facility] Administration Folic Acid 1 mg 04/08/20 09:00 04/20/20 08:22 Folic Acid 1 Mg Tablet PO 1 mg DAILY [facility] Administration Guaifenesin/Dextromethorphan 5 ml 04/18/20 23:14 04/19/20 19:47 Guaifenesin Dm 100/10/5 Ml 5 Ml Syrup PO 5 ml Q6H PRN Administration Cough Piperacillin Sod/Tazobactam 50 mls @ 100 mls/hr 04/20/20 17:45 Sod 3.375 gm/ Sodium Chloride IV Q6H [facility] Insulin Glargine 20 unit 04/18/20 21:00 04/20/20 08:22 Insulin Glargine,Hum.Rec.Anlog 100 Unit/Ml 10 Ml Vial SUBCUT 20 unit BID KYM Administration Insulin Human Lispro 0 unit 04/07/20 18:05 04/20/20 16:39 Insulin Lispro 100 Unit/Ml 3 Ml Vial SUBCUT 8 unit QIDACHS KYM Administration Protocol Latanoprost 1 drop 04/07/20 21:00 04/19/20 21:27 Latanoprost 0.005 % Ophth Jackeline 2.5 Ml Drops EYE-BOTH 1 drop BEDTIME KYM Administration Lisinopril 20 mg 04/07/20 21:00 04/20/20 08:30 Lisinopril 20 Mg Tablet PO Not Given BID [facility] Protocol Melatonin 3 mg 04/09/20 21:00 04/19/20 19:48 Melatonin 3 Mg Tablet PO 3 mg BEDTIME KYM Administration Ondansetron HCl 4 mg 04/07/20 18:05 Ondansetron Hcl 4 Mg/2 Ml Vial IVPUSH Q8H PRN Nausea and Vomiting Pharmacy Consult 1 each 04/07/20 14:47 Consult Rx Perform Med Rec MISCELLANE ONCE PRN Consult order Sodium Chloride 3 ml 04/07/20 18:05 04/20/20 16:39 0.9 % Sodium Chloride Flush 3 Ml Syringe IVFLUSH 3 ml QSHIFT KYM Administration Tolterodine Tartrate 4 mg 04/08/20 09:00 04/20/20 08:22 Tolterodine Tartrate La 4 Mg Cap.Er.24h PO 4 mg DAILY KYM Administration Labs CBC & Chem 7: 04/20/20 20:15 04/19/20 05:55 Microbiology Microbiology Results: Microbiology 04/07/20 14:45 Blood - Venous Blood Culture - Final No growth after 5 days. 04/07/20 14:37 Blood - Venous Blood Culture - Final No growth after 5 days. Assessment and Plan (1) 2019 novel coronavirus–infected pneumonia (NCIP)#8211;infected pneumo paz (NCIP): Status: Acute Assessment and Plan: 70yo M with DM2, HTN, HLD, PVD, MASSIEL admitted for hypoxia due to COVID-19 pneumonia acute hypoxic respiratory failure due to COVID-19 pneumonia Patient finished course of dexamethasone and remdesivir offers no acute complaints , altough appears short of breath, was doing better yesterday but since last night requiring high-flow oxygen, lung sounds are clear, but due to high oxygen requirement repeated chest x-ray that showed worsening bilateral infiltrate, therefore will place patient on IV Zosyn will check D-dimer, procalcitonin and CBC Continue high-flow oxygen, incentive spirometry, out of bed to chair and wean oxygen as tolerated. Fe deficiency anemia Hb stable sp 2u pRBCs. FOBT negative. continue Fe supplementation HTN Noted to have low blood pressure therefore will discontinue lisinopril and continue diltiazem PVD continue Plavix, cilostazol, and statin HLD continue statin DM2, A1c 6.9 Blood sugars stable continue correction-dose lispro and Lantus 20 units b.i.d. depression continue bupropion VTE ppx continue LMWH (2) Hypoxia: Status: Acute
[2020-04-20] MEDS: Piperacillin Sodium/Tazobactam 3.375 GM in 0.9 % Sodium Chloride 50 ML IV (18:43)
[2020-04-20] MEDS: Morphine Sulfate 2 MG/ML CARTRIDGE 1 MG IVPUSH (19:40)
[2020-04-20 19:55] LABS: Pt Ventilation O2% 100%
[2020-04-20 20:01] LABS: ABG PCO2 31 mmHg (32-45); HCO3 ABG 24 mmol/L (22-26); PO2 ABG 54 mmHg (83-108); pH ABG 7.49 (7.35-7.45)
[2020-04-20 20:02] LABS: Base Excess ABG 1.4
[2020-04-20 20:29] LABS: Basophils Percent Auto 0.1 % (0-2); Eosinophils Absolute Auto 0.5 X10*3/uL (0.0-0.4); Eosinophils Percent Auto 2.2 % (0-4); Hematocrit 32.9 % (42-52); Hemoglobin 10.1 g/dl (14.0-18.0); Imm Gran Abs Auto 0.17 X10*3/uL (0.00-0.03); Imm Gran Pct Auto 0.8 % (0.0-0.4); Lymphocytes Percent Auto 4.6 % (20-40); MANUAL DIFF FLAG SCAN; Mean Corpuscular HGB Conc 30.7 g/dl (31.0-36.0); Mean Corpuscular Volume 68.4 fL (80-98); Mean Platelet Volume 9.9 fL (9.4-12.4); Monocytes Absolute Auto 2.2 X10*3/uL (0.1-1.2); Neutrophils Percent Auto 82.3 % (45-73); Platelet Count 508 X10*3/uL (160-400); Red Blood Count 4.81 X10*6/uL (4.60-5.80); Red Cell Distribution Width 28.5 % (11.0-16.0); SCAN SMEAR FLAG 1; White Blood Count 21.9 X10*3/uL (4.8-10.8)
[2020-04-20 20:52] LABS: D Dimer 544 NG/ML
[2020-04-20 20:53] LABS: SLIDE REVIEW VERIFIED
[2020-04-20 21:13] LABS: Procalcitonin 0.08 ng/mL
[2020-04-20 21:16] LABS: Glucose, Whole Blood 102 mg/dL (60-115)
[2020-04-20] MEDS: Atorvastatin Calcium 80 MG TABLET PO (21:41)
[2020-04-20] MEDS: Melatonin 3 MG TABLET PO (21:41)
[2020-04-20] MEDS: Latanoprost 0.005 % Ophth Sol 2.5 ML DROPS 1 DROP EYE-BOTH (21:42)
[2020-04-21] VITALS (17 sets, daily range): BP systolic 91–120; BP diastolic 52–72; PULSE 69–90; RESP 18–36; TEMP 36.4–37.1; O2SAT 88–96
[2020-04-21] MEDS: Piperacillin Sodium/Tazobactam 3.375 GM in 0.9 % Sodium Chloride 50 ML IV ×5 (00:22→22:42)
[2020-04-21] MEDS: guaiFENesin DM 100/10/5 ML 5 ML SYRUP PO ×2 (00:22→14:46)
[2020-04-21 07:29] LABS: Glucose, Whole Blood 132 mg/dL (60-115)
[2020-04-21] MEDS: 0.9 % Sodium Chloride Flush 3 ML SYRINGE IVFLUSH ×3 (08:00→22:43)
[2020-04-21] MEDS: dilTIAZem HCL CD 300 MG CAP.ER.24H PO (08:00)
[2020-04-21] MEDS: dilTIAZem HCL CD 120 MG CAP.ER.DEG PO (08:00)
[2020-04-21] MEDS: Aspirin Enteric Coated 81 MG TABLET.DR PO (08:00)
[2020-04-21] MEDS: Tolterodine Tartrate LA 4 MG CAP.ER.24H PO (08:00)
[2020-04-21] MEDS: Ferrous Sulfate 324 MG TABLET.DR PO ×2 (08:01→16:21)
[2020-04-21] MEDS: cilostazoL 100 MG TABLET PO ×2 (08:01→21:16)
[2020-04-21] MEDS: Cyanocobalamin (Vitamin B-12) 1,000 MCG TABLET 1000 MCG PO (08:01)
[2020-04-21] MEDS: Folic Acid 1 MG TABLET PO (08:01)
[2020-04-21] MEDS: Clopidogrel Bisulfate 75 MG TABLET PO (08:01)
[2020-04-21] MEDS: buPROPion HCl XL 300 MG TAB.ER.24H PO (08:01)
[2020-04-21] MEDS: Insulin Glargine,Hum.rec.anlog 100 UNIT/ML 10 ML VIAL 20 UNIT SUBCUT ×2 (08:01→21:15)
[2020-04-21] MEDS: methylPREDNISolone Sod Succ/PF 125 MG/2 ML VIAL 60 MG IVPUSH ×3 (08:01→22:42)
[2020-04-21] MEDS: Clotrimazole 1 % Cream 15 GM TUBE 1 APPL TOPICAL (08:02)
--- NOTE | 2020-04-21 10:13 | PM.EVENT ---
Event Note Date of Service: 04/21/20 Event Note: PATIENT SEEN THIS MORNING FOR PULMONARY CONSULT. I HAVE REVIEWED THE MEDICAL RECORDS AND LABS/IMAGING. EXAMINED THE PATIENT. COMPLETE NOTE IS DICTATED. A: COVID-19 INFECTION. BILATERAL COVID RELATED PNEUMONITIS, GETTING WORSE. THIS REPRESENTS EXTENSIVE INFLAMMATORY PHASE . POSSIBILITY OF SUPER ADDED BACTERIAL INFECTION CANNOT BE RULED OUT. SEVERE RESPIRATORY DISTRESS, SECONDARY TO ABOVE. P; AGREE WITH THE CURRENT TREATMENT WITH BROAD-SPECTRUM ANTIBIOTIC REGIMEN, AND IV SOLU-MEDROL. CONTINUE LOVENOX 40 MG SUBQ B.I.D. AT THIS TIME . CONTINUE HIGH-FLOW OXYGEN TO KEEP O2 SAT ABOVE 90% AND DISCUSS WITH PATIENT AND HIS FAMILY REGARDING CODE STATUS AND INTUBATION/VENT SUPPORT IF NEEDED. PROGNOSIS IS GUARDED AT THIS TIME.
--- NOTE | 2020-04-21 10:56 | CONS_ITS ---
DATE OF SERVICE: 04/21/2020 REFERRING PHYSICIAN: Ivan Rojas MD REQUESTING PHYSICIAN: Ivan Rojas MD. I have seen this patient for pulmonary consultation. I have reviewed the medical records. The patient is not able to converse or give any history himself. Review of systems not possible because he does not converse much. The history is that he was admitted on 04/07/2020 with increased shortness of breath for a few days. He had been seen in the emergency room around 04/05 and COVID test was done, which was positive. With increased shortness of breath, he came to the hospital on 04/07. He has been treated with course of remdesivir, and also 10 days course of dexamethasone along with oxygen supplements and his usual medications. The patient is getting worse since yesterday with increased respiratory distress. There is no fever, chills, or chest pain, and no history of any overt pulmonary aspiration during hospital stay. His repeat chest x-ray shows extensive bilateral alveolar densities, especially in the lower lobes and his O2 requirement is much high. He is requiring high-flow oxygen and in addition, he is also on non-rebreather mask. PAST MEDICAL HISTORY: Reviewed and he has been treated for diabetes mellitus, also hyperlipidemia, hypertension, and peripheral vascular disease. PHYSICAL EXAMINATION: GENERAL: This 70-year-old gentleman chronically sick-looking, is sitting in the recliner right now, in moderate respiratory distress. VITAL SIGNS: Respiratory rate is about 24, temperature is normal. HEENT: I did not examine his throat. NECK: No JVD. Carotids normal. Trachea midline. CHEST: He has good aeration of both lungs. There are somewhat harsh breath sounds. A few inspiratory crackles over the back of the chest, but no wheezes are heard. CARDIAC: Sounds are relatively muffled with respiratory sound, but no murmurs. ABDOMEN: Flat, soft, and nontender. EXTREMITIES: No edema or varicosities. Peripheral pulses are not palpable. DIAGNOSTIC DATA: Chest x-ray of 04/20 is reviewed and it shows extensive alveolar densities especially in the lower lobes, which are much more increased since the last x-ray of 04/07. IMPRESSION: 1. COVID-19 infection. 2. Extensive bilateral alveolitis secondary to COVID disease. 3. Possible superadded bacterial infection. 4. Chronic peripheral vascular disease. 5. Chronic diabetes mellitus, the patient on insulin. 6. Acute respiratory distress, requiring high levels of oxygen. RECOMMENDATIONS: 1. Agree with the current treatment. 2. I think we should treat him with broad-spectrum antibiotic for possibility of bacterial infection. 3. Solu-Medrol 40 mg IV q.8 hours for a few days, then oral prednisone. 4. Prognosis is guarded at this time. Thank you very much for asking me to see this patient. MD DANTE Monzon/MODL / [id number]
[2020-04-21 11:52] LABS: Glucose, Whole Blood 306 mg/dL (60-115)
[2020-04-21] MEDS: Enoxaparin Sodium 40 MG/0.4 ML SYRINGE SUBCUT ×2 (12:18→22:41)
[2020-04-21] MEDS: Insulin Lispro 100 UNIT/ML 3 ML VIAL SUBCUT ×3 (12:19→21:14)
--- NOTE | 2020-04-21 14:18 | P.PNIM_ITS ---
Subjective Subjective Date of Service: 04/22/20 Interval History: Patient feels better this a.m. was short of breath last night, oxygenation drops with minimal activity, no fever no chills patient required high-flow oxygen and 100% non-rebreather last evening, at this moment on high- flow oxygen by mouth ROS General no headache, no dizziness, no fever chills. CVS no chest pain, no palpitation. Respiratory no cough, no sputum production, shortness of breath worse with activity Gastrointestinal no nausea, no vomiting, no abdominal pain Physical Exam Vital Signs: Vital Signs: Last Vital Signs Temp 98.3 F 04/21/20 11:37 Pulse 76 04/21/20 11:37 Resp 24 H 04/21/20 11:59 BP 91/53 L 04/21/20 11:37 Pulse Ox 96 04/21/20 11:37 Body Mass Index 28.5 General mild respiratory distress Neck is supple no JVD. CVS regular rate rhythm, Respiratory lungs clear to auscultation, mild respiratory distress, no wheeze, no rhonchi. Gastrointestinal abdomen soft, nontender, bowel sounds audible, no guarding , no rigidity. Extremities no clubbing, cyanosis or edema. Neuro nonfocal, speech clear. Skin no rash Objective Data Current Medications Generic Name Dose Route Start Last Admin Trade Name Freq PRN Reason Stop Dose Admin Acetaminophen 650 mg 04/07/20 18:05 04/20/20 11:55 Acetaminophen 325 Mg Tablet PO 650 mg Q6H PRN Administration Pain, Mild (Pain Scale 1-3) Albuterol Sulfate 2 puff 04/07/20 18:05 Albuterol Sulfate 90 Mcg 8 Gm Inhaler INHALE Q4H PRN Shortness of Breath Aspirin 81 mg 04/08/20 09:00 04/21/20 08:00 Aspirin Enteric Coated 81 Mg Tablet.Dr PO 81 mg DAILY KYM Administration Atorvastatin Calcium 80 mg 04/07/20 21:00 04/20/20 21:41 Atorvastatin Calcium 80 Mg Tablet PO 80 mg BEDTIME KYM Administration Betamethasone Dipropion Augmented 1 appl 04/08/20 06:17 04/13/20 10:26 Betamethasone Dip Aug 0.05% Cr 15 Gm Tube TOPICAL 1 appl BID PRN Administration Rash Bupropion HCl 300 mg 04/08/20 09:00 04/21/20 08:01 Bupropion Hcl Xl 300 Mg Tab.Er.24h PO 300 mg DAILY KYM Administration Cilostazol 100 mg 04/07/20 21:00 04/21/20 08:01 Cilostazol 100 Mg Tablet PO 100 mg BID KYM Administration Clopidogrel Bisulfate 75 mg 04/08/20 09:00 04/21/20 08:01 Clopidogrel Bisulfate 75 Mg Tablet PO 75 mg DAILY [facility]YM Administration Clotrimazole 1 appl 04/08/20 09:00 04/21/20 08:02 Clotrimazole 1 % Cream 15 Gm Tube TOPICAL 1 appl DAILY [facility] Administration Protocol Cyanocobalamin 1,000 mcg 04/08/20 09:00 04/21/20 08:01 Cyanocobalamin (Vitamin B-12) 1,000 Mcg Tablet PO 1,000 mcg DAILY [facility] Administration Diltiazem HCl 300 mg 04/09/20 09:00 04/21/20 08:00 Diltiazem Hcl Cd 300 Mg Cap.Er.24h PO 300 mg DAILY KYM Administration Diltiazem HCl 120 mg 04/09/20 09:00 04/21/20 08:00 Diltiazem Hcl Cd 120 Mg Cap.Er.Deg PO 120 mg DAILY [facility] Administration Protocol Docusate Sodium 100 mg 04/07/20 18:05 Docusate Sodium 100 Mg Capsule PO DAILY PRN Constipation Enoxaparin Sodium 40 mg 04/21/20 11:00 04/21/20 12:18 Enoxaparin Sodium 40 Mg/0.4 Ml Syringe SUBCUT 40 mg Q12H KYM Administration Ferrous Sulfate 324 mg 04/08/20 17:00 04/21/20 08:01 Ferrous Sulfate 324 Mg Tablet.Dr PO 324 mg BIDWM KYM Administration Folic Acid 1 mg 04/08/20 09:00 04/21/20 08:01 Folic Acid 1 Mg Tablet PO 1 mg DAILY [facility]YM Administration Guaifenesin/Dextromethorphan 5 ml 04/18/20 23:14 04/21/20 00:22 Guaifenesin Dm 100/10/5 Ml 5 Ml Syrup PO 5 ml Q6H PRN Administration Cough Piperacillin Sod/Tazobactam 50 mls @ 100 mls/hr 04/21/20 11:00 04/21/20 12:50 Sod 3.375 gm/ Sodium Chloride IV Infused Q6H KYM Infusion Insulin Glargine 20 unit 04/18/20 21:00 04/21/20 08:01 Insulin Glargine,Hum.Rec.Anlog 100 Unit/Ml 10 Ml Vial SUBCUT 20 unit BID KYM Administration Insulin Human Lispro 0 unit 04/07/20 18:05 04/21/20 12:19 Insulin Lispro 100 Unit/Ml 3 Ml Vial SUBCUT 8 unit QIDACHS KYM Administration Protocol Latanoprost 1 drop 04/07/20 21:00 04/20/20 21:42 Latanoprost 0.005 % Ophth Jackeline 2.5 Ml Drops EYE-BOTH 1 drop BEDTIME KYM Administration Lisinopril 20 mg 04/07/20 21:00 04/21/20 08:00 Lisinopril 20 Mg Tablet PO 20 mg BID KYM Administration Protocol Melatonin 3 mg 04/09/20 21:00 04/20/20 21:41 Melatonin 3 Mg Tablet PO 3 mg BEDTIME KYM Administration Methylprednisolone Sodium Succinate 60 mg 04/21/20 07:45 04/21/20 08:01 Methylprednisolone Sod Succ/Pf 125 Mg/2 Ml Vial IVPUSH 60 mg Q8H KYM Administration Ondansetron HCl 4 mg 04/07/20 18:05 Ondansetron Hcl 4 Mg/2 Ml Vial IVPUSH Q8H PRN Nausea and Vomiting Pharmacy Consult 1 each 04/07/20 14:47 Consult Rx Perform Med Rec MISCELLANE ONCE PRN Consult order Sodium Chloride 3 ml 04/07/20 18:05 04/21/20 08:00 0.9 % Sodium Chloride Flush 3 Ml Syringe IVFLUSH 3 ml QSHIFT KYM Administration Tolterodine Tartrate 4 mg 04/08/20 09:00 04/21/20 08:00 Tolterodine Tartrate La 4 Mg Cap.Er.24h PO 4 mg DAILY [facility]YM Administration Labs CBC & Chem 7: 04/20/20 20:15 04/21/20 20:02 Microbiology Microbiology Results: Microbiology 04/07/20 14:45 Blood - Venous Blood Culture - Final No growth after 5 days. 04/07/20 14:37 Blood - Venous Blood Culture - Final No growth after 5 days. Assessment and Plan (1) 2019 novel coronavirus–infected pneumonia (NCIP)#8211;infected pneumonia (NCIP): Status: Acute (2) Hypoxia: Status: Acute (3) Anemia: Status: Acute (4) Respiratory failure with hypoxia: Status: Acute Assessment and Plan: 70yo M with DM2, HTN, HLD, PVD, MASSIEL admitted for hypoxia due to COVID-19 pneumonia acute hypoxic respiratory failure due to COVID-19 pneumonia Patient last evening noted to be in severe respiratory distress, a repeat chest x-ray showed worsening bilateral infiltrate therefore patient placed on IV Zosyn, repeat D-dimer is around 500, procalcitonin 0.08 , ABG showed significant hypoxia, wbc remains elevated question related to use of steroids Patient finished course of dexamethasone and remdesivir due to worsening shortness of breath, will start on IV Solu , continue IV Zosyn day 2, change subQ Lovenox to b.i.d. Pulmonary obtain patient seen by Dr. Ashley he agrees with above treatment plan , will continue high-flow oxygen,cont. supportive care Called patient's spouse Cira Rehman [phone] and updated her regarding patient's current clinical condition she wishes to continue current treatment, patient remains full code. Fe deficiency anemia Hb stable sp 2u pRBCs. FOBT negative. continue Fe supplementation HTN Noted to have low blood pressure therefore lisinopril discontinued and will lower dose of diltiazem PVD continue Plavix, cilostazol, and statin HLD continue statin DM2, A1c 6.9 Blood sugars stable continue correction-dose lispro and Lantus 20 units b.i.d. depression continue bupropion VTE ppx continue LMWH
[2020-04-21] MEDS: Morphine Sulfate 2 MG/ML CARTRIDGE 1 MG IVPUSH (15:32)
[2020-04-21 16:07] LABS: Glucose, Whole Blood 523 mg/dL (60-115)
[2020-04-21 17:48] LABS: Glucose, Whole Blood 533 mg/dL (60-115)
[2020-04-21] MEDS: Insulin Lispro 100 UNIT/ML 3 ML VIAL 15 UNIT SUBCUT (18:08)
[2020-04-21 18:40] LABS: Glucose, Whole Blood 535 mg/dL (60-115)
--- NOTE | 2020-04-21 19:28 | PC.NURSE ---
RR in 30s and desat down to 70s on 60L high flow + NRB after getting OOB this am. md made aware. nasal passages cleared with some improvement. RT at bedside. pt up in recliner for majority of the day. prn morphine ordered and given for increased work of breathing with good effect and RR in 20s. POC prior to dinner was 523, pt asymptomatic. md made aware. 12 units given per adjusted sliding scale. repeat POC 533. additional 15 units of humalog ordered by md and given. repeat POC 535 and pt continues to be asymptomatic. night hospitalist made aware. oncoming RN aware and awaiting orders at time of nursing handoff report.
[2020-04-21] MEDS: Insulin Regular, Human 100 UNIT/ML 3 ML VIAL 10 UNIT IVPUSH (19:44)
[2020-04-21] MEDS: Insulin Lispro 100 UNIT/ML 3 ML VIAL 10 UNIT SUBCUT (19:45)
[2020-04-21 20:03] LABS: Pt Ventilation O2% 100%
[2020-04-21 20:05] LABS: ABG PCO2 32 mmHg (32-45); pH ABG 7.41 (7.35-7.45)
[2020-04-21 20:06] LABS: Base Excess ABG -3.3; HCO3 ABG 20 mmol/L (22-26)
[2020-04-21 20:18] LABS: PO2 ABG 50 mmHg (83-108)
[2020-04-21 20:34] LABS: Glucose, Whole Blood 340 mg/dL (60-115)
[2020-04-21 20:56] LABS: Acetone, serum QL Negative (Negative)
[2020-04-21] MEDS: Atorvastatin Calcium 80 MG TABLET PO (21:16)
[2020-04-21] MEDS: Melatonin 3 MG TABLET PO (21:16)
[2020-04-21] MEDS: Latanoprost 0.005 % Ophth Sol 2.5 ML DROPS 1 DROP EYE-BOTH (21:17)
[2020-04-21 21:38] LABS: Anion Gap 16 (12-20); Blood Urea Nitrogen 47 mg/dL (9-16); Calcium 8.1 mg/dL (8.4-10.2); Carbon Dioxide 22 mmol/L (22-29); Chloride 100 mmol/L (96-108); Creatinine Clr Calc Pharmacy 41.7; Estimated Glomerular Filt Rate 36; Glucose Random 443 mg/dL (60-115); Sodium 133 mmol/L (135-145)
[2020-04-21 22:09] LABS: Glucose, Whole Blood 211 mg/dL (60-115)
[2020-04-22] VITALS (14 sets, daily range): BP systolic 116–150; BP diastolic 55–66; PULSE 74–95; RESP 17–48; TEMP 36.2–36.6; O2SAT 78–94
[2020-04-22] MEDS: Piperacillin Sodium/Tazobactam 3.375 GM in 0.9 % Sodium Chloride 50 ML IV ×2 (04:17→12:28)
[2020-04-22] MEDS: Morphine Sulfate 2 MG/ML CARTRIDGE 1 MG IVPUSH ×2 (07:00→20:12)
[2020-04-22 07:50] LABS: Glucose, Whole Blood 194 mg/dL (60-115)
[2020-04-22] MEDS: cilostazoL 100 MG TABLET PO (07:56)
[2020-04-22] MEDS: Cyanocobalamin (Vitamin B-12) 1,000 MCG TABLET 1000 MCG PO (07:56)
[2020-04-22] MEDS: Folic Acid 1 MG TABLET PO (07:56)
[2020-04-22] MEDS: buPROPion HCl XL 300 MG TAB.ER.24H PO (07:57)
[2020-04-22] MEDS: Betamethasone Dip Aug 0.05% Cr 15 GM TUBE 1 APPL TOPICAL (07:57)
[2020-04-22] MEDS: Tolterodine Tartrate LA 4 MG CAP.ER.24H PO (07:57)
[2020-04-22] MEDS: Clopidogrel Bisulfate 75 MG TABLET PO (07:57)
[2020-04-22] MEDS: Aspirin Enteric Coated 81 MG TABLET.DR PO (07:57)
[2020-04-22] MEDS: Ferrous Sulfate 324 MG TABLET.DR PO ×2 (07:57→17:25)
[2020-04-22] MEDS: methylPREDNISolone Sod Succ/PF 125 MG/2 ML VIAL 60 MG IVPUSH ×2 (08:04→17:14)
[2020-04-22] MEDS: Insulin Lispro 100 UNIT/ML 3 ML VIAL SUBCUT ×3 (08:07→17:14)
[2020-04-22] MEDS: 0.9 % Sodium Chloride Flush 3 ML SYRINGE IVFLUSH ×2 (08:07→17:15)
[2020-04-22] MEDS: Insulin Glargine,Hum.rec.anlog 100 UNIT/ML 10 ML VIAL 20 UNIT SUBCUT (08:08)
[2020-04-22] MEDS: dilTIAZem HCL CD 300 MG CAP.ER.24H PO (08:16)
[2020-04-22] MEDS: Clotrimazole 1 % Cream 15 GM TUBE 1 APPL TOPICAL (08:20)
[2020-04-22] MEDS: dilTIAZem HCL CD 120 MG CAP.ER.DEG PO (08:20)
--- NOTE | 2020-04-22 11:50 | MHC.CM.PN ---
Male 70 DX Covid+ Pt continues to require supplemental oxygen at high flow rate. Per MD rounds no DC today. CM will continue to follow to assess for DC needs.
[2020-04-22 12:09] LABS: Glucose, Whole Blood 389 mg/dL (60-115)
[2020-04-22] MEDS: Enoxaparin Sodium 40 MG/0.4 ML SYRINGE SUBCUT (12:28)
--- NOTE | 2020-04-22 15:03 | P.PNIM_ITS ---
Subjective Subjective Date of Service: 04/22/20 Interval History: Patient currently on 100% non-rebreather and high-flow oxygen 55 L, admits that he is doing fine denies shortness of breath although noted to be tachypneic. ROS General no headache, no dizziness, no fever chills. CVS no chest pain, no palpitation. Respiratory no cough, no sputum production, shortness of breath worse with activity Gastrointestinal no nausea, no vomiting, no abdominal pain Physical Exam Vital Signs: Vital Signs: Last Vital Signs Temp 97.3 F 04/22/20 11:57 Pulse 74 04/22/20 11:57 Resp 28 H 04/22/20 11:57 BP 116/57 L 04/22/20 11:57 Pulse Ox 93 04/22/20 11:57 Body Mass Index 28.5 General mild respiratory distress Neck is supple no JVD. CVS regular rate rhythm, Respiratory lungs clear to auscultation, mild respiratory distress, no wheeze, no rhonchi. Gastrointestinal abdomen soft, nontender, bowel sounds audible, no guarding , no rigidity. Extremities no clubbing, cyanosis or edema. Neuro nonfocal, speech clear. Skin no rash Objective Data Current Medications Generic Name Dose Route Start Last Admin Trade Name Freq PRN Reason Stop Dose Admin Acetaminophen 650 mg 04/07/20 18:05 04/20/20 11:55 Acetaminophen 325 Mg Tablet PO 650 mg Q6H PRN Administration Pain, Mild (Pain Scale 1-3) Albuterol Sulfate 2 puff 04/07/20 18:05 Albuterol Sulfate 90 Mcg 8 Gm Inhaler INHALE Q4H PRN Shortness of Breath Aspirin 81 mg 04/08/20 09:00 04/22/20 07:57 Aspirin Enteric Coated 81 Mg Tablet. PO 81 mg DAILY KYM Administration Atorvastatin Calcium 80 mg 04/07/20 21:00 04/21/20 21:16 Atorvastatin Calcium 80 Mg Tablet PO 80 mg BEDTIME KYM Administration Betamethasone Dipropion Augmented 1 appl 04/08/20 06:17 04/22/20 07:57 Betamethasone Dip Aug 0.05% Cr 15 Gm Tube TOPICAL 1 appl BID PRN Administration Rash Bupropion HCl 300 mg 04/08/20 09:00 04/22/20 07:57 Bupropion Hcl Xl 300 Mg Tab.Er.24h PO 300 mg DAILY KYM Administration Cilostazol 100 mg 04/07/20 21:00 04/22/20 07:56 Cilostazol 100 Mg Tablet PO 100 mg BID KYM Administration Clopidogrel Bisulfate 75 mg 04/08/20 09:00 04/22/20 07:57 Clopidogrel Bisulfate 75 Mg Tablet PO 75 mg DAILY KYM Administration Clotrimazole 1 appl 04/08/20 09:00 04/22/20 08:20 Clotrimazole 1 % Cream 15 Gm Tube TOPICAL 1 appl DAILY KYM Administration Protocol Cyanocobalamin 1,000 mcg 04/08/20 09:00 04/22/20 07:56 Cyanocobalamin (Vitamin B-12) 1,000 Mcg Tablet PO 1,000 mcg DAILY KYM Administration Diltiazem HCl 300 mg 04/09/20 09:00 04/22/20 08:16 Diltiazem Hcl Cd 300 Mg Cap.Er.24h PO 300 mg DAILY KYM Administration Diltiazem HCl 120 mg 04/09/20 09:00 04/22/20 08:20 Diltiazem Hcl Cd 120 Mg Cap.Er.Deg PO 120 mg DAILY [facility] Administration Protocol Docusate Sodium 100 mg 04/07/20 18:05 Docusate Sodium 100 Mg Capsule PO DAILY PRN Constipation Enoxaparin Sodium 40 mg 04/21/20 11:00 04/22/20 12:28 Enoxaparin Sodium 40 Mg/0.4 Ml Syringe SUBCUT 40 mg Q12H [facility] Administration Ferrous Sulfate 324 mg 04/08/20 17:00 04/22/20 07:57 Ferrous Sulfate 324 Mg Tablet.Dr PO 324 mg BIDWM [facility] Administration Folic Acid 1 mg 04/08/20 09:00 04/22/20 07:56 Folic Acid 1 Mg Tablet PO 1 mg DAILY [facility] Administration Guaifenesin/Dextromethorphan 5 ml 04/18/20 23:14 04/21/20 14:46 Guaifenesin Dm 100/10/5 Ml 5 Ml Syrup PO 5 ml Q6H PRN Administration Cough Piperacillin Sod/Tazobactam 50 mls @ 100 mls/hr 04/21/20 11:00 04/22/20 13:03 Sod 3.375 gm/ Sodium Chloride IV Infused Q6H [facility] Infusion Insulin Glargine 20 unit 04/18/20 21:00 04/22/20 08:08 Insulin Glargine,Hum.Rec.Anlog 100 Unit/Ml 10 Ml Vial SUBCUT 20 unit BID KYM Administration Insulin Human Lispro 0 unit 04/07/20 18:05 04/22/20 12:24 Insulin Lispro 100 Unit/Ml 3 Ml Vial SUBCUT 10 unit QIDACHS KYM Administration Protocol Latanoprost 1 drop 04/07/20 21:00 04/21/20 21:17 Latanoprost 0.005 % Ophth Jackeline 2.5 Ml Drops EYE-BOTH 1 drop BEDTIME KYM Administration Lisinopril 20 mg 04/07/20 21:00 04/22/20 08:15 Lisinopril 20 Mg Tablet PO 20 mg BID KYM Administration Protocol Melatonin 3 mg 04/09/20 21:00 04/21/20 21:16 Melatonin 3 Mg Tablet PO 3 mg BEDTIME KYM Administration Methylprednisolone Sodium Succinate 60 mg 04/21/20 07:45 04/22/20 08:04 Methylprednisolone Sod Succ/Pf 125 Mg/2 Ml Vial IVPUSH 60 mg Q8H KYM Administration Morphine Sulfate 1 mg 04/21/20 14:49 04/22/20 07:00 Morphine Sulfate 2 Mg/Ml Cartridge IVPUSH 1 mg Q6H PRN Administration Dyspnea Ondansetron HCl 4 mg 04/07/20 18:05 Ondansetron Hcl 4 Mg/2 Ml Vial IVPUSH Q8H PRN Nausea and Vomiting Pharmacy Consult 1 each 04/07/20 14:47 Consult Rx Perform Med Rec MISCELLANE ONCE PRN Consult order Sodium Chloride 3 ml 04/07/20 18:05 04/22/20 08:07 0.9 % Sodium Chloride Flush 3 Ml Syringe IVFLUSH 3 ml QSHIFT [facility] Administration Tolterodine Tartrate 4 mg 04/08/20 09:00 04/22/20 07:57 Tolterodine Tartrate La 4 Mg Cap.Er.24h PO 4 mg DAILY KYM Administration Labs CBC & Chem 7: 04/20/20 20:15 04/21/20 20:02 Microbiology Microbiology Results: Microbiology 04/07/20 14:45 Blood - Venous Blood Culture - Final No growth after 5 days. 04/07/20 14:37 Blood - Venous Blood Culture - Final No growth after 5 days. Assessment and Plan (1) Respiratory failure with hypoxia: Status: Acute (2) 2019 novel coronavirus–infected pneumonia (NCIP)#8211;infected pneumonia (NCIP): Status: Acute (3) Hypoxia: Status: Acute (4) Anemia: Status: Acute Assessment and Plan: 70yo M with DM2, HTN, HLD, PVD, MASSIEL admitted for hypoxia due to COVID-19 pneumonia acute hypoxic respiratory failure due to COVID-19 pneumonia Persistent hypoxia no respiratory distress, repeat chest x-ray showed worsening bilateral infiltrate, therefore placed on IV Zosyn, daily 3, repeat D-dimer is around 500, procalcitonin 0.08 , ABG showed significant hypoxia. Patient finished course of dexamethasone and remdesivir due to worsening shortness of breath, placed back on IV Solu , continue IV Zosyn and subQ Lovenox to b.i.d. patient seen by Dr. Ashley he agrees with above treatment plan , will continue high-flow oxygen,cont. supportive care patient's spouse Cira Rehman [phone] updated her regarding patient's clinical condition on 04/21/20 . Fe deficiency anemia Hb stable sp 2u pRBCs. FOBT negative. continue Fe supplementation HTN Blood pressure is stable on diltiazem/lisinopril discontinued PVD continue Plavix, cilostazol, and statin HLD continue statin DM2, A1c 6.9 Blood sugars elevated due to steroid, continue correction-dose lispro dosage adjusted and will increase dose of Lantus from 20 units b.i.d. to 22 b.i.d. depression continue bupropion VTE ppx continue LMWH
[2020-04-22 16:09] LABS: Glucose, Whole Blood 407 mg/dL (60-115)
[2020-04-22] MEDS: Piperacillin Sodium/Tazobactam 2.25 GM in 0.9 % Sodium Chloride 50 ML IV (18:13)
[2020-04-22 19:34] LABS: Glucose, Whole Blood 348 mg/dL (60-115)
--- NOTE | 2020-04-22 22:00 | W.PM.CCHP ---
Procedures Date of Service Date of Service: 04/22/20
--- NOTE | 2020-04-22 22:18 | P.EN_ITS ---
Event Note Date of Service: 04/22/20 Event Note: Received message from nurse the Patient hypoxic on 100% non-rebre ather as well as high-flow Venti. Consulted ICU and patient will be transferred to the ICU for further care
--- NOTE | 2020-04-22 22:30 | W.PM.CCHP ---
Procedures Date of Service Date of Service: 04/22/20 IO Due to immediate need, lack of IV axis, immediate landmarks and anatomical features were identified on the left lower extremity. At the base of the tibial plateau, medially, the area was cleaned and prepped, using a 15 gauge needle and a drill, an intraosseous line was placed successfully without any resistance, it was secured, had good flash and medications were administered.: Time out performed: Yes Anesthetic used: none IO instrument used to penetrate the cortex: battery powered IO drill Patient tolerated procedure: well Complications: none
[2020-04-22 22:32] LABS: Base Excess VBG -4.9 mmol/L; HCO3 VBG 20 mmol/L; PCO2 VBG 37 mmHg; PO2 VBG 149 mmHg
[2020-04-22 22:36] LABS: Basophils Absolute Auto 0.1 X10*3/uL (0.0-0.2); Basophils Percent Auto 0.1 % (0-2); Hematocrit 34.4 % (42-52); Hemoglobin 10.4 g/dl (14.0-18.0); Imm Gran Abs Auto 0.32 X10*3/uL (0.00-0.03); Lymphocytes Absolute Auto 0.8 X10*3/uL (1.2-4.9); Lymphocytes Percent Auto 2.3 % (20-40); MANUAL DIFF FLAG SCAN; Mean Corpuscular HGB Conc 30.2 g/dl (31.0-36.0); Mean Corpuscular Hemoglobin 21.4 pg (27.0-33.0); Mean Corpuscular Volume 70.8 fL (80-98); Mean Platelet Volume 10.6 fL (9.4-12.4); Monocytes Absolute Auto 2.7 X10*3/uL (0.1-1.2); Monocytes Percent Auto 8.2 % (2-11); Neutrophils Absolute Auto 29.7 X10*3/uL (2.0-8.3); Neutrophils Percent Auto 88.4 % (45-73); Platelet Count 612 X10*3/uL (160-400); Red Blood Count 4.86 X10*6/uL (4.60-5.80); Red Cell Distribution Width 29.3 % (11.0-16.0); SCAN SMEAR FLAG 1
[2020-04-22 22:42] LABS: Anion Gap 18 (12-20); Blood Urea Nitrogen 53 mg/dL (9-16); Calcium 8.8 mg/dL (8.4-10.2); Carbon Dioxide 21 mmol/L (22-29); Chloride 103 mmol/L (96-108); Creatinine Clr Calc Pharmacy 52.5; Estimated Glomerular Filt Rate 47; Glucose Random 264 mg/dL (60-115); Potassium 5.1 mmol/L (3.3-5.1); Sodium 137 mmol/L (135-145)
[2020-04-22 22:43] LABS: White Blood Count 33.6 X10*3/uL (4.8-10.8)
[2020-04-22 22:44] LABS: SLIDE REVIEW VERIFIED
[2020-04-22 23:18] LABS: INTERNATIONAL NORM RATIO 1.1 (0.9-1.1); Prothrombin Time 12.7 SEC (10.8-13.0)
[2020-04-22 23:20] LABS: Partial Thromboplastin Time 28.6 SEC (24.1-38.0)
[2020-04-22 23:21] LABS: D Dimer 678 NG/ML
[2020-04-22 23:43] LABS: Ferritin 315 ng/mL (20-250)
[2020-04-22 23:46] LABS: Procalcitonin 0.07 ng/mL
[2020-04-22 23:53] LABS: B Type Natriuretic Peptide 32 pg/mL (<100); Troponin-I High Sensitivity 7.2 ng/L (<3.5-35.0)
[2020-04-23] VITALS (34 sets, daily range): BP systolic 87–135; BP diastolic 49–68; PULSE 68–100; RESP 16–33; TEMP 35.1–37.5; O2SAT 76–93
--- NOTE | 2020-04-23 00:10 | MHC.PIE ---
P: ~20:00; Pt hypoxic despite being on 100% NRB and max on highflow 100% FIO2 60L. Increased WOB, RR 22-24, Sats ranging 75-82%. I: Assessment, vitals, PRN morphine [address] Mittal notified. CHET Grover die sizer at the bedside to assess patient. Attempted to prone patient but as unable, pt reposition to right side and sats dropped to 68%. Pt resp distress worsening, RR 30-40's. Orders in to trx to ICU. E: Pt a/o x3, agrees to intubation. CPAP ordered and pt placed on CPAP prior to transfer. Pt transfer to the ICU successfully. Report given to FULL STACK DEVELOPER, pt intubated right away. Cira- called by this RN and complete update given.
--- NOTE | 2020-04-23 00:12 | W.PM.CCHP ---
Procedures Date of Service Date of Service: 04/22/20 Intubation Intubation Comments: Given that the patient developed progressive respiratory fatigue, agitation and hypoxia despite CPAP, RSI/ Crash aAirway protocol was followed, attempted preoxygenating the patient but the sats would not go up above 60% while bagging him, etomidate 40 mg times once ox; 100 mg x 1 was given. Back a bougie was available. Using the GlideScope, the close was identified and using a 4.0 Blade, an ETT tube 7.5 was inserted via direct vision in a nontraumatic way. Post intubation, breath sounds were equal and bilateral, CO2 test in show positive color change to yellow, SpO2 maintained 86%, The tube was secured at 25 cm at the upper lip. Ventilation settings started with 16/400/80/ 100% Patient tolerated the procedure well without complications. Postop x-ray showed endotracheal tube approximately 4 cm above the rick, will advance 2 cm for it to be at 27 at the lip. Case was discussed in detail with Dr. Tapia. He is aware of all the above as well as the plan of care for this patient. Consent for Procedure: Emergent-no informed consent obtained Time out performed: Yes Sedative: etomidate Mg given: 40 Paralytic: succinylcholine Mg given: 100 Laryngoscope: fiber optic video scope ET tube size: 7.5 ET tube uncuffed: Yes Tube secured depth (cm): 25 Tube secured location: lips Tube placement confirmation: visualized tube passing through cords Patient tolerated procedure: well Intubation complications: none
--- NOTE | 2020-04-23 00:13 | PC.RT ---
pt placed on cpap after decreased SATS on NRB plus HFNC and no improvement. pt was transferred to the ICU.
[2020-04-23 00:21] LABS: Lactic Acid 1.1 mmol/L (0.5-2.0)
[2020-04-23] MEDS: HYDROmorphone HCl 2 MG/ML VIAL IM (01:39)
[2020-04-23] MEDS: Rocuronium Bromide 50 MG/5 ML VIAL IVPUSH ×2 (01:39)
[2020-04-23] MEDS: propofoL 200 MG/20 ML VIAL 300 MG IVPUSH (01:39)
[2020-04-23] MEDS: Etomidate 20 MG/10 ML VIAL 40 MG IVPUSH (01:40)
[2020-04-23] MEDS: Succinylcholine Chloride 100 MG/5 ML SYRINGE IVPUSH (01:40)
[2020-04-23] MEDS: 0.9 % Sodium Chloride 1,000 ML 100 ML IVCONT ×3 (01:41→06:09)
[2020-04-23] MEDS: 0.9 % Sodium Chloride Flush 3 ML SYRINGE IVFLUSH ×2 (01:41→11:25)
[2020-04-23] MEDS: propofoL 1,000 MG/100 ML VIAL 27.12 MG IVCONT ×3 (01:42→04:10)
[2020-04-23] MEDS: fentaNYL citrate/NS 1,000 MCG/100 ML PLAST..BAG 20 MCG IVCONT ×2 (01:43→02:12)
[2020-04-23] MEDS: Albuterol Sulfate (0.083%) 2.5 MG/3 ML VIAL.NEB 10 MG INHALE ×2 (01:44→06:06)
[2020-04-23] MEDS: Enoxaparin Sodium 40 MG/0.4 ML SYRINGE SUBCUT ×2 (02:20→10:18)
[2020-04-23] MEDS: Piperacillin Sodium/Tazobactam 3.375 GM in 0.9 % Sodium Chloride 50 ML IV ×4 (02:20→11:38)
[2020-04-23] MEDS: methylPREDNISolone Sod Succ/PF 125 MG/2 ML VIAL 60 MG IVPUSH ×3 (02:20→14:38)
[2020-04-23 02:55] LABS: Glucose Urine UA NEG (NEG); Leukocyte Esterase Urine TRACE (NEG); Nitrite Urine POS (NEG); Specific Gravity - Urine >= 1.030 (1.005-1.025); Urine Blood 3+ (NEG); Urine Ketones NEG (NEG); Urine Protein 2+ MG/DL (NEG-TRACE)
[2020-04-23 02:58] LABS: Appearance Urine TURBID; Color Urine BROWN
[2020-04-23 03:41] LABS: Bacteria Urine 2+ /LPF; Hyaline Casts Urine 0-2 /LPF; Mucus Urine TRACE /LPF; RBC Urine TNTC /HPF (0); Renal Epithelial Cells Urine TRACE /LPF; Squamous Epithelial Cell Urine TRACE /LPF; WBC Urine 0-2 /HPF (0-4); Waxy Casts Urine 0-2 /LPF
[2020-04-23 03:42] LABS: Amorphous Sediment Urine 2+ /LPF; Uric Acid Crystals Urine 1+ /LPF
[2020-04-23] MEDS: fentaNYL citrate/NS 1,000 MCG/100 ML PLAST..BAG 15 MCG IVCONT (04:10)
[2020-04-23] MEDS: Sodium Bicarbonate 8.4% 50 MEQ/50 ML VIAL IVPUSH ×2 (04:58→06:17)
[2020-04-23] MEDS: Magnesium Sulfate/H2O 2 GM/50 ML PIGGYBACK IV (04:58)
[2020-04-23] MEDS: Calcium Gluconate/NaCl,Iso-Osm 2 GM/100 ML PLAST..BAG IV (04:58)
[2020-04-23 04:59] LABS: Basophils Absolute Auto 0.1 X10*3/uL (0.0-0.2); Basophils Percent Auto 0.2 % (0-2); Eosinophils Percent Auto 0.1 % (0-4); Hematocrit 34.4 % (42-52); Hemoglobin 9.4 g/dl (14.0-18.0); Imm Gran Abs Auto 2.07 X10*3/uL (0.00-0.03); Imm Gran Pct Auto 4.8 % (0.0-0.4); Lymphocytes Absolute Auto 0.6 X10*3/uL (1.2-4.9); Lymphocytes Percent Auto 1.4 % (20-40); MANUAL DIFF FLAG SCAN; Mean Corpuscular HGB Conc 27.3 g/dl (31.0-36.0); Mean Corpuscular Hemoglobin 21.1 pg (27.0-33.0); Mean Corpuscular Volume 77.1 fL (80-98); Mean Platelet Volume 10.7 fL (9.4-12.4); Monocytes Absolute Auto 4.5 X10*3/uL (0.1-1.2); Monocytes Percent Auto 10.6 % (2-11); Neutrophils Absolute Auto 35.6 X10*3/uL (2.0-8.3); Neutrophils Percent Auto 82.9 % (45-73); Platelet Count 632 X10*3/uL (160-400); Red Blood Count 4.46 X10*6/uL (4.60-5.80); Red Cell Distribution Width 28.7 % (11.0-16.0); SCAN SMEAR FLAG 1
[2020-04-23] MEDS: 0.9 % Sodium Chloride 1,000 ML 999 ML IVCONT ×2 (04:59→06:09)
--- NOTE | 2020-04-23 05:27 | PC.NURSE ---
Patient [place] [facility] [place] appro[place]. RR 50's. Satting 70's on CPAP 12 100% fio2. Intubated immediately upon arrival. Difficult to sedate/ventilate. Propofol, fentanyl, levo, and nimbex started. Difficult to obtain IV access. Right lower IO started. TLC right IJ inserted after pt sedated. Satting 80-85% most of shift on 100% fio2, 14 PEEP. Vent settings changed repeatedly in an attempt to oxygenate/reduce peak pressures. QRS widening, initially 160, up to 211 this am. Labs sent early. Mg, calcium gluconate, sodium bicarb, 1l ns bolus hung. Rhythm now junctional in 70's. Skin intact.
[2020-04-23 05:30] LABS: White Blood Count 42.9 X10*3/uL (4.8-10.8)
[2020-04-23 05:32] LABS: D Dimer 1887 NG/ML
[2020-04-23 05:42] LABS: Anion Gap 16 (12-20); Blood Urea Nitrogen 62 mg/dL (9-16); C Reactive Protein 11.12 mg/dL (< or = 0.50); Calcium 8.2 mg/dL (8.4-10.2); Carbon Dioxide 31 mmol/L (22-29); Chloride 100 mmol/L (96-108); Creatinine Clr Calc Pharmacy 32.6; Estimated Glomerular Filt Rate 27; Glucose Random 508 mg/dL (60-115); Magnesium 2.9 mg/dL (1.6-2.6); Phosphorus 12.7 mg/dL (2.7-4.5); Potassium 7.9 mmol/L (3.3-5.1); Sodium 139 mmol/L (135-145)
[2020-04-23 05:43] LABS: Ferritin 264 ng/mL (20-250)
[2020-04-23] MEDS: Insulin Regular, Human 100 UNIT/ML 3 ML VIAL 10 UNIT IVPUSH (05:50)
[2020-04-23 05:54] LABS: Pt Ventilation O2% 100%
[2020-04-23] MEDS: Sodium Polystyrene Sulfon/Sorb 15 GM/60 ML ORAL.SUSP 60 GM PO ×2 (05:55→06:43)
[2020-04-23 06:01] LABS: Base Excess ABG -7.3; HCO3 ABG 28 mmol/L (22-26); PO2 ABG 62 mmHg (83-108)
[2020-04-23 06:02] LABS: pH ABG 6.85 (7.35-7.45)
[2020-04-23 06:03] LABS: ABG PCO2 147 mmHg (32-45)
[2020-04-23] MEDS: Insulin Regular/NS 100 UNIT/100 ML PLAST..BAG 8 UNIT IVCONT (06:30)
[2020-04-23] MEDS: Enoxaparin Sodium 150 MG/ML SYRINGE 135 MG SUBCUT (06:43)
--- NOTE | 2020-04-23 06:55 | W.PM.CCCN ---
History of Present Illness Data of Consult Service Date: 04/22/20 Requesting physician: Joe Mittal Primary Care Provider: Unknown Physician HPI Reason for consult: Hypoxic respiratory failure 70-year-old male with underlying history of coronary artery disease, hypertension, hyperlipidemia, type 2 diabetes, peripheral vascular disease, status post fem to pop bypass surgery. Patient is seen emergency room and admitted on 04/07/2020, the time he had complained of feeling short of breath and coughing for approximately 1 week, had gotten tested 1 day prior to admission was positive for COVID-19, the time of admission he was saturating 80% on room air, complained of malaise and cough but no other symptomatically. Patient had been admitted to the floor, treated with the steroids and remdesivir. He has had a CT angiogram which was negative for PE. Supplemental oxygenation with high-flow O2 and non-rebreather mask was allowing saturations of 90-94%. He did get 2 units of packed red blood cells due to his anemia, however stool test was negative for blood. On , pulmonary consult had been obtained g the patient ongoing oxygenation needs, the possibility of a superimposed bacterial infection was contemplated and was started on Zosyn. Today while on the floor, was called by the hospitalist given the patient continued to have hypoxia while on high-flow O2 non-rebreather mask satting approximately 80-82% but in addition the noted increased work of breathing. On arrival, the patient complained of not being able to breathe well, he is anxious, his respiratory distress significant is not able to answer any other questions at this point. ROS: Unobtainable due to patient's respiratory distress Past Medical History: as above Past Surgical History: as above Family history: unknown Social History: Lives at home, ex smoker. Eoth ? unkown Contact Info: : Cira Rehman [phone] still decides to have him be FULL CODE, she wants no information given to any other family members. CODE STATUS: FULL CODE Allergies: NKDA Home Medications: See [facility] Rec Sepsis exam done at 9:00 pm PHYSICAL EXAM: VS: Blood pressure 139/66, heart rate 97, respirations 16, O2 sat 86% on FiO2 of 100 while on a vent VENT SETTINGS : Rate 16, tidal volume 450, peep 14, FiO2 100% General: Alert oriented x3 appear to be in significant distress using accessory muscles and tired now. Patient speaks Cambodian and follows commands. He is complaining of shortness of breath.. Skin: Intact, no lesions, edema, erythema, clubbing or cyanosis. No ulcers. Large right lower extremity old surgical scar. HEENT: Head is normocephalic, atraumatic, pupils equal round reactive to light accommodation bilaterally. Extraocular movements appear intact. Buccal mucosa is moist, Neck is supple without lymphadenopathy. Cardiac: Clears wants to, no murmurs, rubs, gallops. Pulmonary: Significantly diminished lung sounds bilaterally and throughout with coarse sounds and crackles at the bases. Abdomen: Protuberant, positive bowel sounds in all 4 quadrants. Soft, nontender, no rebound or guarding. Musculoskeletal: Moving all 4 extremities upon request a major joints, there is no crepitus or tenderness. The strength is 5/5 bilaterally and throughout all 4 extremities. Gait not assessed at this point. Neurologic: As above, cranial nerves 2-12 are grossly intact. No focal deficits noted. Motor strength as above. Vascular: 2+ pulses upper and lower extremities distally. Less than 2nd capillary refill fingers and toes bilaterally SIGNIFICANT LABORATORY DATA: White count increased to 33.6, hemoglobin 10.4, hematocrit 34.4, MCV 70.8, platelets 612, D-dimer 6 78. Blood gas pH 7.33, pCO2 37, PO2 149, HC03 20, O2 saturation 98% Chemistry sodium 137, potassium 5.1, chloride 103, carbon dioxide 21, anion gap 18, BUN 53, creatinine 1.48, POC glucose 348, ferritin, troponin, BNP, procalcitonin is pending. REVIEW OF IMAGES: Previous x-rays reviewed Today's chest x-ray TECHNIQUE: Frontal view of the chest was obtained. FINDINGS: The endotracheal tube terminates 5 cm above the rick. Right internal jugular central venous catheter terminates near the cavoatrial junction. Cardiac leads overlie the chest. The lungs are well expanded. Bilateral airspace opacities with interstitial prominence noted. Mildly increased from prior. No pleural effusion or pneumothorax. The cardiomediastinal silhouette is unchanged, with a calcified aorta. XR/XR chest 1V IMPRESSION: Endotracheal tube terminating 5 cm above the rick. Worsening bilateral airspace opacities. EKG REVIEW: EKG was reviewed by me, this shows sinus tachycardia ventricular rate of , right bundle-branch block, no evidence of ST elevations or depressions. This was compared to study from 04/07/2020, no significant changes. ASSESSMENT AND PLAN: 1. Hypoxic respiratory failure/distress in need of emergent airway 2. Reactive leukocytosis due to steroids and underlying viral COVID pneumonia NO SEPSIS evidence 3. Microcytic anemia with known iron deficiency 4. Thrombocytosis due to current illness 5. Acute kidney injury (improving) 6. Uncontrolled diabetes type 2 7. Stable hypertension (requiring vasopressors due to propofol administration. Transferred to ICU, I's and O's, vital signs, we briefly tried the patient on CPAP and given opiates for work of breathing, however he appear to be decompensated briefly and within less than 5 minutes of being in the ICU, decision to intubate him was made due to significant distress, tachypnea, accessory muscle usage and tiring. Crush airway/rapid sequence intubation was required. Please see procedures for details. Central line placement, and I 0 was also placed to lack of IV access prior to central line. Continue with the steroids, place OG tube for medication administration, monitor biomarkers, insulin sliding scale along with basal insulin coverage. Patient treated with remdesivir. Patient did require paralyzation as well as sedation. And given the patient's blood pressure came down with propofol, patient required Levophed. It is eminent that the patient has worsened pulmonary infiltrates viral in origin. He is being covered with Zosyn, given the significant worsening of the bilateral airspace disease noted on x-ray, I will put him on vancomycin renal dose even though I do not think he is septic for he is not hypotensive, tachycardic, his lactic acid is normal. GI PROPHYLAXIS: PPI IV DVT PROPHYLAXIS: Lovenox b.i.d. 0515 am patient's O2 sat went down from 82% to 75 in 76% of the above-mentioned vent settings. Repositioning was done, tried on pressure control, adjustments made to the event to try to get does sat to improved unfortunately I was not able to until significant suctioning was done. At this same time, the patient has a widened QRS which has doubled from the time of transfer to the ICU currently at 2:11 a.m. milliseconds. I have reviewed patient's medications, I am concerned that he may have underlying electrolyte issues although he did not earlier, labs ordered. I noted he was on calcium channel rosario and I will give him calcium gluconate; particularly as he has not produced any urine despite of 1.5 L of fluid in the risk of retaining the byproducts in the setting of renal failure. In addition he will get magnesium in case he develops a tachyarrhythmia such as VF, this will help prevent torsade; I will also give him sodium bicarb although this mostly works as an antidote and try cyclic antidepressant overdose which is unlikely or at least not listed on his medications. All of the above was discussed at this time with doctors temp who agrees and unfortunately there may not be much else to do for this patient. Echo suggested to r/o PFO; ABG. I talked to the pt's and mentioned again the poor prognosis of this patient, as well as to keep in inform of the overnight events. Insist in FULL CODE and is aware that prognosis is poor. Critical care time used for critical evaluation of this patient, diagnosis, treatment and coordination of care, review her records and documentation TOTAL CRITICAL CARE TIME 150 MIN ; separate from any procedures performed. Patient's care was discussed in detail with Dr. Tapia. He is aware of all the above as well as the plan of care for this patient. [facility] Past Medical History Medical History Diabetes HLD (hyperlipidemia) HTN (hypertension) PVD (peripheral vascular disease) Functional capacity: independent ambulation Family History Family history: reviewed and not pertinent Surgical History Surgical History S/P femoral-popliteal bypass surgery Social History Social History Household Members: Spouse Housing: House Do you presently have visiting nurse or other home services: No Smoking Status: Former smoker Smoked in Last 30 Days: No Use of substances other than those prescribed or required for medical reasons: No Currently Displaying Signs/Symptoms of Drug Intoxication Withdrawal: No Have you been hit, kicked, punched, or otherwise hurt by someone within the past year? If so, by whom?: No Do you feel safe in your current relationship?: Yes Is there a partner from a previous relationship who is making you feel unsafe now?: No Are you made to feel afraid or neglected: No Advance Directives: No Advance Directives Information Provided: No Do you have thoughts of harming others: None Do you have a plan to hurt others: No Plan Recently lost weight without trying: No service: No Current occupational status: disabled Meds Allergies Allergy/AdvReac Type Severity Reaction Status Date / Time No Known Allergies Allergy Unverified 11/12/19 15:36 [No Known Allergies*] pollen Allergy Unknown Uncoded 02/05/17 00:00 Active Medications: Current Medications Generic Name Dose Route Start Last Admin Trade Name Freq PRN Reason Stop Dose Admin Acetaminophen 650 mg 04/07/20 18:05 04/20/20 11:55 Acetaminophen 325 Mg Tablet PO 650 mg Q6H PRN Administration Pain, Mild (Pain Scale 1-3) Aspirin 81 mg 04/08/20 09:00 04/22/20 07:57 Aspirin Enteric Coated 81 Mg Tablet.Dr PO 81 mg DAILY KYM Administration Atorvastatin Calcium 80 mg 04/07/20 21:00 04/23/20 00:01 Atorvastatin Calcium 80 Mg Tablet PO Not Given BEDTIME KYM Betamethasone Dipropion Augmented 1 appl 04/08/20 06:17 04/22/20 07:57 Betamethasone Dip Aug 0.05% Cr 15 Gm Tube TOPICAL 1 appl BID PRN Administration Rash Bupropion HCl 300 mg 04/08/20 09:00 04/22/20 07:57 Bupropion Hcl Xl 300 Mg Tab.Er.24h PO 300 mg DAILY KYM Administration Cilostazol 100 mg 04/07/20 21:00 04/23/20 00:01 Cilostazol 100 Mg Tablet PO Not Given BID KYM Clopidogrel Bisulfate 75 mg 04/08/20 09:00 04/22/20 07:57 Clopidogrel Bisulfate 75 Mg Tablet PO 75 mg DAILY KYM Administration Clotrimazole 1 appl 04/08/20 09:00 04/22/20 08:20 Clotrimazole 1 % Cream 15 Gm Tube TOPICAL 1 appl DAILY KYM Administration Protocol Cyanocobalamin 1,000 mcg 04/08/20 09:00 04/22/20 07:56 Cyanocobalamin (Vitamin B-12) 1,000 Mcg Tablet PO 1,000 mcg DAILY KYM Administration Diltiazem HCl 300 mg 04/09/20 09:00 04/22/20 08:16 Diltiazem Hcl Cd 300 Mg Cap.Er.24h PO 300 mg DAILY KYM Administration Diltiazem HCl 120 mg 04/09/20 09:00 04/22/20 08:20 Diltiazem Hcl Cd 120 Mg Cap.Er.Deg PO 120 mg DAILY KYM Administration Protocol Enoxaparin Sodium 40 mg 04/21/20 11:00 04/22/20 12:28 Enoxaparin Sodium 40 Mg/0.4 Ml Syringe SUBCUT 40 mg Q12H KYM Administration Piperacillin Sod/Tazobactam 50 mls @ 100 mls/hr 04/23/20 00:00 Sod 3.375 gm/ Sodium Chloride IV Q6H KYM Propofol 1,000 mg in 100 mls @ 0 mls/hr 04/22/20 22:30 Diprivan IVCONT .Q0M [facility] Protocol Per Protocol Norepinephrine Bitartrate 8 mg in 250 mls @ 0 mls/hr 04/22/20 22:30 Levophed IVCONT .Q0M [facility] Protocol Per Protocol Fentanyl 1,000 mcg in 100 mls @ 0 mls/hr 04/22/20 22:45 Sublimaze/Ns IVCONT .Q0M [facility] Protocol Per Protocol Cisatracurium Besylate 100 mg/ 50 mls @ 5.424 mls/hr 04/22/20 22:45 IV Miscellaneous Supplies IVCONT .Q9H14M KMY 2 MCG/KG/MIN Insulin Glargine 30 unit 04/23/20 09:00 Insulin Glargine,Hum.Rec.Anlog 100 Unit/Ml 10 Ml Vial SUBCUT BID [facility] Insulin Human Lispro 0 unit 04/07/20 18:05 04/23/20 00:01 Insulin Lispro 100 Unit/Ml 3 Ml Vial SUBCUT Not Given QIDACHS [facility] Protocol Latanoprost 1 drop 04/07/20 21:00 04/23/20 00:02 Latanoprost 0.005 % Ophth Jackeline 2.5 Ml Drops EYE-BOTH Not Given BEDTIME [facility] Methylprednisolone Sodium Succinate 60 mg 04/21/20 07:45 04/22/20 17:14 Methylprednisolone Sod Succ/Pf 125 Mg/2 Ml Vial IVPUSH 60 mg Q8H KYM Administration Naloxone HCl 0.2 mg 04/22/20 22:31 Naloxone Hcl 0.4 Mg/Ml Vial IVPUSH Q2M PRN Excessive sedation or RR < 8 Ondansetron HCl 4 mg 04/07/20 18:05 Ondansetron Hcl 4 Mg/2 Ml Vial IVPUSH Q8H PRN Nausea and Vomiting Pharmacy Consult 1 each 04/07/20 14:47 Consult Rx Perform Med Rec MISCELLANE ONCE PRN Consult order Sodium Chloride 3 ml 04/07/20 18:05 04/22/20 17:15 0.9 % Sodium Chloride Flush 3 Ml Syringe IVFLUSH 3 ml QSHIFT KYM Administration Tolterodine Tartrate 4 mg 04/08/20 09:00 04/22/20 07:57 Tolterodine Tartrate La 4 Mg Cap.Er.24h PO 4 mg DAILY KYM Administration Home Medications Medication Instructions Recorded Confirmed Last Taken Type acetaminophen 500 mg PO TID PRN 04/07/20 04/07/20 Unknown History aspirin 81 mg PO DAILY 04/07/20 04/07/20 Unknown History atorvastatin 80 mg PO BEDTIME 04/07/20 04/07/20 Unknown History betamethasone dipropionate 1 appl TOPICAL BID PRN 04/07/20 04/07/20 Unknown History bupropion HCl 300 mg PO DAILY 04/07/20 04/07/20 Unknown History cilostazol 100 mg PO BID 04/07/20 04/07/20 Unknown History clopidogrel 75 mg PO DAILY 04/07/20 04/07/20 Unknown History clotrimazole 1 appl TOPICAL DAILY 04/07/20 04/07/20 Unknown History cyanocobalamin (vitamin B-12) 1,000 mcg PO DAILY 04/07/20 04/07/20 Unknown History diltiazem HCl 420 mg PO DAILY 04/07/20 04/07/20 Unknown History folic acid 1 mg PO DAILY 04/07/20 04/07/20 Unknown History insulin aspart U-100 [Novolog See Rx Instructions .ROUTE .COMPLEX 04/07/20 04/07/20 Unknown History U-100 Insulin aspart] insulin glargine [Lantus U-100 15 unit SUBCUT DAILY 04/07/20 04/07/20 Unknown History Insulin] latanoprost 1 drp OPHTHALMIC (EYE) QPM 04/07/20 04/07/20 Unknown History lisinopril-hydrochlorothiazide 1 tab PO BID 04/07/20 04/07/20 Unknown History tolterodine 4 mg PO DAILY 04/07/20 04/07/20 Unknown History zolpidem 10 mg PO BEDTIME PRN 04/07/20 04/07/20 Unknown History Physical Exam Vital Signs: Vital Signs: Last Vital Signs Temp 97.7 F 04/22/20 19:07 Pulse 93 04/22/20 23:44 Resp 17 04/22/20 23:44 BP 140/65 H 04/22/20 23:44 Pulse Ox 85 L 04/22/20 23:44 Body Mass Index 28.5 Results Labs CBC & Chem 7: 04/22/20 21:30 04/22/20 21:30 Labs: Short CBC 04/22/20 Range/Units 21:30 WBC 33.6 H* (4.8-10.8) X10*3/uL Hgb 10.4 L (14.0-18.0) g/dl Hct 34.4 L (42-52) % Plt Count 612 H (160-400) X10*3/uL BMP 04/22/20 21:30 Sodium 137 Potassium 5.1 Chloride 103 Carbon Dioxide 21 L BUN 53 H Creatinine 1.48 H Calcium 8.8 D Microbiology Microbiology Results: Microbiology 04/07/20 14:45 Blood - Venous Blood Culture - Final No growth after 5 days. 04/07/20 14:37 Blood - Venous Blood Culture - Final No growth after 5 days.
[2020-04-23 07:12] LABS: Base Excess VBG -5.9 mmol/L; HCO3 VBG 26 mmol/L; PCO2 VBG 113 mmHg; PO2 VBG 51 mmHg
[2020-04-23 07:15] LABS: pH VBG 6.97 (7.32-7.43)
[2020-04-23] MEDS: propofoL 1,000 MG/100 ML VIAL 21.7 MG IVCONT ×5 (07:36→21:06)
[2020-04-23 07:45] LABS: Lactic Acid 2.1 mmol/L (0.5-2.0)
[2020-04-23 08:32] LABS: Glucose, Whole Blood 374 mg/dL (60-115)
[2020-04-23 08:32] LABS: Glucose, Whole Blood 343 mg/dL (60-115)
[2020-04-23 08:59] LABS: Albumin Level 2.8 g/dL (3.5-5.0)
[2020-04-23 09:05] LABS: Reflex Lactate? Lactic Acid Added
[2020-04-23] MEDS: Bumetanide 1 MG/4 ML VIAL 2 MG IVPUSH (09:31)
[2020-04-23] MEDS: Chlorhexidine Gluc Oral Rinse 15 ML MOUTHWASH BUCCAL ×3 (09:32→19:29)
[2020-04-23 09:57] LABS: Base Excess VBG -4.8 mmol/L; HCO3 VBG 27 mmol/L; PCO2 VBG 99 mmHg; PO2 VBG 49 mmHg
[2020-04-23 09:58] LABS: pH VBG 7.03 (7.32-7.43)
[2020-04-23 10:15] LABS: Glucose, Whole Blood 327 mg/dL (60-115)
[2020-04-23 10:29] LABS: Anion Gap 16 (12-20); Blood Urea Nitrogen 65 mg/dL (9-16); Calcium 8.1 mg/dL (8.4-10.2); Carbon Dioxide 27 mmol/L (22-29); Chloride 104 mmol/L (96-108); Creatinine Clr Calc Pharmacy 28.8; Estimated Glomerular Filt Rate 24; Glucose Random 414 mg/dL (60-115); Potassium 5.9 mmol/L (3.3-5.1); Sodium 141 mmol/L (135-145); ~Lactic Acid-LAB USE ONLY 2.3 mmol/L (0.5-2.0)
[2020-04-23] MEDS: EPINEPHrine 5 MG in Dextrose 5 % 250 ML 55.33 MG IVCONT (11:37)
[2020-04-23 11:41] LABS: Glucose, Whole Blood 306 mg/dL (60-115)
[2020-04-23 11:48] LABS: Reflex Lactate? 2 Y
--- NOTE | 2020-04-23 12:09 | PM.CCPN ---
Subjective Subjective Date of Service: 04/23/20 Interval History: 70-year-old gentleman with underlying history of CAD, hypertension, diabetes mellitus, PVD status post fem-pop bypass admitted on 04/07/2020 with dyspnea and hypoxia secondary to COVID-19. Patient has been treated with systemic glucocorticoids and remdesivir. His hospital course was significant for progressive hypoxemia resulting in respiratory muscle fatigue with development of refractory respiratory acidosis and combined acute hypoxic and hypercapnic respiratory failure on 04/22/2020 requiring transfer to intensive care unit and emergent intubation. Patient remains on maximum ventilatory support still with significant respiratory acidosis despite maximal ventilatory support. Family discussion has been held with patient's healthcare proxy/survive and extremely brief prognosis has been explained to her. At this time she would like to continue with full support. Overnight with progressive acute hypoxic and hypercapnic respiratory failure with resultant respiratory acidosis, hyperkalemia, and hypotension secondary to acute cardiomyopathy, requiring vasopressor and ventilatory support and paralytic drip for ventilator synchrony. Physical Exam Vital Signs: Vital Signs: Last Vital Signs Temp 96.3 F L 04/23/20 12:00 Pulse 87 04/23/20 12:00 Resp 32 H 04/23/20 12:00 BP 115/59 L 04/23/20 12:00 Pulse Ox 92 04/23/20 12:00 Body Mass Index 28.5 Const: General: no acute distress and other (Sedated on the vent) Eyes: Sclerae: sclerae normal EOM: EOMs intact bilaterally Neck: Neck: Yes no lymphadenopathy, Yes trachea midline and Yes supple Resp: Effort & Inspection: normal respiratory effort Cardio: Rate: regular rate Rhythm: regular rhythm Heart sounds: no gallops, no murmurs and no rubs GI: Palpation (GI): Soft to palpation and Other GI palpation findings present ( Nontender) Auscultation: normal bowel sounds Extrem: General: No clubbing, No cyanosis and Yes edema (1+ bilateral) Objective Data Labs CBC & Chem 7: 04/23/20 04:49 04/23/20 09:45 Labs: Laboratory Results - last 24 hr 04/22/20 04/22/20 04/22/20 12:01 16:00 19:27 WBC RBC Hgb Hct MCV MCH MCHC RDW Plt Count MPV Immature Gran % (Auto) Neut % (Auto) Lymph % (Auto) [place] % (Auto) Eos % (Auto) Baso % (Auto) Lymph # (Auto) [place] # (Auto) Eos # (Auto) Baso # (Auto) Abs Immat Gran (auto) Absolute Neuts (auto) Absolute Nucleated RBC Nucleated RBC % (auto) Smear Tech's Comments PT INR APTT D-Dimer ABG pH ABG pCO2 ABG pO2 ABG HCO3 ABG O2 Saturation ABG Base Excess VBG pH VBG pCO2 VBG pO2 VBG HCO3 VBG O2 Saturation VBG Base Excess Oxygen Given Sodium Potassium Chloride Carbon Dioxide Anion Gap BUN Creatinine Estim Creat Clear Calc Estimated GFR POC Glucose 389 H* 407 H* 348 H Random Glucose Lactic Acid Lactic Acid Fup @ 2Hr Calcium Phosphorus Magnesium Ferritin Troponin I High Sens C-Reactive Protein B-Natriuretic Peptide Albumin Procalcitonin Urine Color Urine Appearance Urine pH Ur Specific [place] Urine Protein Urine Glucose (UA) Urine Ketones Urine Blood Urine Nitrite Ur Leukocyte Esterase Urine RBC Urine WBC Ur Squamous Epith Cells Ur Renal Epithelial Cell Uric Acid Crystals Amorphous Sediment Urine Bacteria Hyaline Casts Waxy Casts Urine Mucus 04/22/20 04/22/20 04/22/20 21:30 21:30 21:30 WBC 33.6 H* RBC 4.86 Hgb 10.4 L Hct 34.4 L MCV 70.8 L MCH 21.4 L MCHC 30.2 L RDW 29.3 H Plt Count 612 H MPV 10.6 Immature Gran % (Auto) 1.0 H Neut % (Auto) 88.4 H Lymph % (Auto) 2.3 L [place] % (Auto) 8.2 Eos % (Auto) 0.0 Baso % (Auto) 0.1 Lymph # (Auto) 0.8 L [place] # (Auto) 2.7 H Eos # (Auto) 0.0 Baso # (Auto) 0.1 Abs Immat Gran (auto) 0.32 H Absolute Neuts (auto) 29.7 H Absolute Nucleated RBC 0.000 Nucleated RBC % (auto) 0.0 Smear Tech's Comments VERIFIED PT INR APTT D-Dimer ABG pH ABG pCO2 ABG pO2 ABG HCO3 ABG O2 Saturation ABG Base Excess VBG pH 7.33 VBG pCO2 37 VBG pO2 149 VBG HCO3 20 VBG O2 Saturation 98.0 VBG Base Excess -4.9 Oxygen Given Sodium 137 Potassium 5.1 Chloride 103 Carbon Dioxide 21 L Anion Gap 18 BUN 53 H Creatinine 1.48 H Estim Creat Clear Calc 52.5 Estimated GFR 47 POC Glucose Random Glucose 264 H D Lactic Acid Lactic Acid Fup @ 2Hr Calcium 8.8 D Phosphorus Magnesium Ferritin 315 H Troponin I High Sens C-Reactive Protein B-Natriuretic Peptide Albumin Procalcitonin Urine Color Urine Appearance Urine pH Ur Specific [place] Urine Protein Urine Glucose (UA) Urine Ketones Urine Blood Urine Nitrite Ur Leukocyte Esterase Urine RBC Urine WBC Ur Squamous Epith Cells Ur Renal Epithelial Cell Uric Acid Crystals Amorphous Sediment Urine Bacteria Hyaline Casts Waxy Casts Urine Mucus 04/22/20 04/22/20 04/22/20 21:30 21:30 21:30 WBC RBC Hgb Hct MCV MCH MCHC RDW Plt Count MPV Immature Gran % (Auto) Neut % (Auto) Lymph % (Auto) [place] % (Auto) Eos % (Auto) Baso % (Auto) Lymph # (Auto) [place] # (Auto) Eos # (Auto) Baso # (Auto) Abs Immat Gran (auto) Absolute Neuts (auto) Absolute Nucleated RBC Nucleated RBC % (auto) Smear Tech's Comments PT 12.7 INR 1.1 APTT 28.6 D-Dimer 678 ABG pH ABG pCO2 ABG pO2 ABG HCO3 ABG O2 Saturation ABG Base Excess VBG pH VBG pCO2 VBG pO2 VBG HCO3 VBG O2 Saturation VBG Base Excess Oxygen Given Sodium Potassium Chloride Carbon Dioxide Anion Gap BUN Creatinine Estim Creat Clear Calc Estimated GFR POC Glucose Random Glucose Lactic Acid Lactic Acid Fup @ 2Hr Calcium Phosphorus Magnesium Ferritin Troponin I High Sens 7.2 D C-Reactive Protein B-Natriuretic Peptide 32 Albumin Procalcitonin 0.07 Urine Color Urine Appearance Urine pH Ur Specific [place] Urine Protein Urine Glucose (UA) Urine Ketones Urine Blood Urine Nitrite Ur Leukocyte Esterase Urine RBC Urine WBC Ur Squamous Epith Cells Ur Renal Epithelial Cell Uric Acid Crystals Amorphous Sediment Urine Bacteria Hyaline Casts Waxy Casts Urine Mucus 04/22/20 04/23/20 04/23/20 23:36 02:38 04:49 WBC 42.9 H* RBC 4.46 L Hgb 9.4 L Hct 34.4 L MCV 77.1 L D MCH 21.1 L MCHC 27.3 L RDW 28.7 H Plt Count 632 H MPV 10.7 Immature Gran % (Auto) 4.8 H Neut % (Auto) 82.9 H Lymph % (Auto) 1.4 L [place] % (Auto) 10.6 Eos % (Auto) 0.1 Baso % (Auto) 0.2 Lymph # (Auto) 0.6 L [place] # (Auto) 4.5 H Eos # (Auto) 0.0 Baso # (Auto) 0.1 Abs Immat Gran (auto) 2.07 H Absolute Neuts (auto) 35.6 H Absolute Nucleated RBC 0.000 Nucleated RBC % (auto) 0.0 Smear Tech's Comments PT INR APTT D-Dimer ABG pH ABG pCO2 ABG pO2 ABG HCO3 ABG O2 Saturation ABG Base Excess VBG pH VBG pCO2 VBG pO2 VBG HCO3 VBG O2 Saturation VBG Base Excess Oxygen Given Sodium Potassium Chloride Carbon Dioxide Anion Gap BUN Creatinine Estim Creat Clear Calc Estimated GFR POC Glucose Random Glucose Lactic Acid 1.1 Lactic Acid Fup @ 2Hr Calcium Phosphorus Magnesium Ferritin Troponin I High Sens C-Reactive Protein B-Natriuretic Peptide Albumin Procalcitonin Urine Color BROWN Urine Appearance TURBID Urine pH 5.0 Ur Specific [place] >= 1.030 H Urine Protein 2+ H Urine Glucose (UA) NEG Urine Ketones NEG Urine Blood 3+ H Urine Nitrite POS H Ur Leukocyte Esterase TRACE H Urine RBC TNTC H Urine WBC 0-2 Ur Squamous Epith Cells TRACE Ur Renal Epithelial Cell TRACE Uric Acid Crystals 1+ Amorphous Sediment 2+ Urine Bacteria 2+ Hyaline Casts 0-2 Waxy Casts 0-2 Urine Mucus TRACE 04/23/20 04/23/20 04/23/20 04:50 04:50 05:48 WBC RBC Hgb Hct MCV MCH MCHC RDW Plt Count MPV Immature Gran % (Auto) Neut % (Auto) Lymph % (Auto) [place] % (Auto) Eos % (Auto) Baso % (Auto) Lymph # (Auto) [place] # (Auto) Eos # (Auto) Baso # (Auto) Abs Immat Gran (auto) Absolute Neuts (auto) Absolute Nucleated RBC Nucleated RBC % (auto) Smear Tech's Comments PT INR APTT D-Dimer 1887 ABG pH 6.85 L* ABG pCO2 147 H* ABG pO2 62 L ABG HCO3 28 H ABG O2 Saturation 79.0 ABG Base Excess -7.3 VBG pH VBG pCO2 VBG pO2 VBG HCO3 VBG O2 Saturation VBG Base Excess Oxygen Given 100% Sodium 139 Potassium 7.9 H* D Chloride 100 Carbon Dioxide 31 H Anion Gap 16 BUN 62 H Creatinine 2.38 H Estim Creat Clear Calc 32.6 Estimated GFR 27 POC Glucose Random Glucose 508 H* Lactic Acid Lactic Acid Fup @ 2Hr Calcium 8.2 L D Phosphorus 12.7 H Magnesium 2.9 H Ferritin 264 H Troponin I High Sens C-Reactive Protein 11.12 H B-Natriuretic Peptide Albumin 2.8 L Procalcitonin Urine Color Urine Appearance Urine pH Ur Specific [place] Urine Protein Urine Glucose (UA) Urine Ketones Urine Blood Urine Nitrite Ur Leukocyte Esterase Urine RBC Urine WBC Ur Squamous Epith Cells Ur Renal Epithelial Cell Uric Acid Crystals Amorphous Sediment Urine Bacteria Hyaline Casts Waxy Casts Urine Mucus 04/23/20 04/23/20 04/23/20 06:59 06:59 07:42 WBC RBC Hgb Hct MCV MCH MCHC RDW Plt Count MPV Immature Gran % (Auto) Neut % (Auto) Lymph % (Auto) [place] % (Auto) Eos % (Auto) Baso % (Auto) Lymph # (Auto) [place] # (Auto) Eos # (Auto) Baso # (Auto) Abs Immat Gran (auto) Absolute Neuts (auto) Absolute Nucleated RBC Nucleated RBC % (auto) Smear Tech's Comments PT INR APTT D-Dimer ABG pH ABG pCO2 ABG pO2 ABG HCO3 ABG O2 Saturation ABG Base Excess VBG pH 6.97 L* VBG pCO2 113 VBG pO2 51 VBG HCO3 26 VBG O2 Saturation 69.0 VBG Base Excess -5.9 Oxygen Given Sodium Potassium Chloride Carbon Dioxide Anion Gap BUN Creatinine Estim Creat Clear Calc Estimated GFR POC Glucose 374 H* Random Glucose Lactic Acid 2.1 H* Lactic Acid Fup @ 2Hr Calcium Phosphorus Magnesium Ferritin Troponin I High Sens C-Reactive Protein B-Natriuretic Peptide Albumin Procalcitonin Urine Color Urine Appearance Urine pH Ur Specific [place] Urine Protein Urine Glucose (UA) Urine Ketones Urine Blood Urine Nitrite Ur Leukocyte Esterase Urine RBC Urine WBC Ur Squamous Epith Cells Ur Renal Epithelial Cell Uric Acid Crystals Amorphous Sediment Urine Bacteria Hyaline Casts Waxy Casts Urine Mucus 04/23/20 04/23/20 04/23/20 08:21 09:45 09:45 WBC RBC Hgb Hct MCV MCH MCHC RDW Plt Count MPV Immature Gran % (Auto) Neut % (Auto) Lymph % (Auto) [place] % (Auto) Eos % (Auto) Baso % (Auto) Lymph # (Auto) [place] # (Auto) Eos # (Auto) Baso # (Auto) Abs Immat Gran (auto) Absolute Neuts (auto) Absolute Nucleated RBC Nucleated RBC % (auto) Smear Tech's Comments PT INR APTT D-Dimer ABG pH ABG pCO2 ABG pO2 ABG HCO3 ABG O2 Saturation ABG Base Excess VBG pH 7.03 L* VBG pCO2 99 VBG pO2 49 VBG HCO3 27 VBG O2 Saturation 73.0 VBG Base Excess -4.8 Oxygen Given Sodium 141 Potassium 5.9 H D Chloride 104 Carbon Dioxide 27 Anion Gap 16 BUN 65 H Creatinine 2.69 H Estim Creat Clear Calc 28.8 Estimated GFR 24 POC Glucose 343 H Random Glucose 414 H* Lactic Acid Lactic Acid Fup @ 2Hr Calcium 8.1 L Phosphorus Magnesium Ferritin Troponin I High Sens C-Reactive Protein B-Natriuretic Peptide Albumin Procalcitonin Urine Color Urine Appearance Urine pH Ur Specific [place] Urine Protein Urine Glucose (UA) Urine Ketones Urine Blood Urine Nitrite Ur Leukocyte Esterase Urine RBC Urine WBC Ur Squamous Epith Cells Ur Renal Epithelial Cell Uric Acid Crystals Amorphous Sediment Urine Bacteria Hyaline Casts Waxy Casts Urine Mucus 04/23/20 04/23/20 04/23/20 09:45 09:46 11:37 WBC RBC Hgb Hct MCV MCH MCHC RDW Plt Count MPV Immature Gran % (Auto) Neut % (Auto) Lymph % (Auto) [place] % (Auto) Eos % (Auto) Baso % (Auto) Lymph # (Auto) [place] # (Auto) Eos # (Auto) Baso # (Auto) Abs Immat Gran (auto) Absolute Neuts (auto) Absolute Nucleated RBC Nucleated RBC % (auto) Smear Tech's Comments PT INR APTT D-Dimer ABG pH ABG pCO2 ABG pO2 ABG HCO3 ABG O2 Saturation ABG Base Excess VBG pH VBG pCO2 VBG pO2 VBG HCO3 VBG O2 Saturation VBG Base Excess Oxygen Given Sodium Potassium Chloride Carbon Dioxide Anion Gap BUN Creatinine Estim Creat Clear Calc Estimated GFR POC Glucose 327 H 306 H Random Glucose Lactic Acid Lactic Acid Fup @ 2Hr 2.3 H* Calcium Phosphorus Magnesium Ferritin Troponin I High Sens C-Reactive Protein B-Natriuretic Peptide Albumin Procalcitonin Urine Color Urine Appearance Urine pH Ur Specific [place] Urine Protein Urine Glucose (UA) Urine Ketones Urine Blood Urine Nitrite Ur Leukocyte Esterase Urine RBC Urine WBC Ur Squamous Epith Cells Ur Renal Epithelial Cell Uric Acid Crystals Amorphous Sediment Urine Bacteria Hyaline Casts Waxy Casts Urine Mucus Microbiology Microbiology Results: Microbiology 04/23/20 02:38 Sputum - Suctioned Gram Stain - Final 04/07/20 14:45 Blood - Venous Blood Culture - Final No growth after 5 days. 04/07/20 14:37 Blood - Venous Blood Culture - Final No growth after 5 days. Progress Note: A&P Assessment and plan (1) Acute and chronic respiratory failure, unspecified whether with hypoxia or hypercapnia: Status: Acute Assessment and Plan: Assessment: 70-year-old gentleman with underlying CAD, PVD, diabetes mellitus, hypertension, admitted with acute hypoxic respiratory failure secondary to COVID-19 with hospital course significant for progressive hypoxic respiratory failure resulting in respiratory muscle fatigue and acute decompensation requiring intubation and transferred to the intensive care, further complicated by refractory respiratory acidosis, cardiomyopathy, and acute renal failure. Plan: Neuro: No acute issues. Cardiac: Hypotension secondary to acute cardiomyopathy, possible NSTEMI versus functional cardiomyopathy from refractory respiratory acidosis. Troponin level is pending. Continue with Plavix and aspirin. Continue vasopressor support. Pulmonary: Acute hypoxic and hypercapnic respiratory failure secondary to COVID-19 ARDS. Continue ventilatory support. Overall prognosis is very grim. Renal: Acute renal failure secondary to COVID-19. Non oliguric. Continue to monitor renal indices and urine output. Hyperkalemia improved with improvement in acidosis. Endo: No acute issues. GI: No acute issues. ID: COVID 19 event latent viral sepsis with septic shock. Treated with remdesivir and dexamethasone. Heme/Onc: No acute issues. Psych: No acute issues. Miscellaneous: No acute issues. Prophylaxis: Lovenox, ppi Diet: Nothing by mouth Critical care time spent: 60 minutes (2) Viral sepsis: Status: Acute (3) Cardiomyopathy: Status: Acute (4) Acute respiratory distress syndrome (ARDS) due to COVID-19 virus: Status: Acute (5) Acute renal failure: Status: Acute Time Spent With Patient Total time spent with greater than 50% in coordination of care (as documented) at patient's floor/unit and/or counseling patient:: 0 Critical Care Time Critical Care Time (minutes): 60
[2020-04-23 13:01] LABS: Cancel Lactic Acid Canceled
[2020-04-23 13:30] LABS: Glucose, Whole Blood 311 mg/dL (60-115)
[2020-04-23 14:11] LABS: Glucose, Whole Blood 318 mg/dL (60-115)
[2020-04-23 14:34] LABS: Troponin-I High Sensitivity 487.2 ng/L (<3.5-35.0)
[2020-04-23] MEDS: Insulin Regular/NS 100 UNIT/100 ML PLAST..BAG 12 UNIT IVCONT (14:40)
[2020-04-23] MEDS: EPINEPHrine 5 MG in Dextrose 5 % 250 ML 82.99 MG IVCONT ×3 (14:52→21:16)
[2020-04-23 16:05] LABS: Glucose, Whole Blood 310 mg/dL (60-115)
[2020-04-23 16:06] LABS: Glucose, Whole Blood 307 mg/dL (60-115)
[2020-04-23 17:09] LABS: Glucose, Whole Blood 302 mg/dL (60-115)
[2020-04-23 18:20] LABS: Glucose, Whole Blood 304 mg/dL (60-115)
--- NOTE | 2020-04-23 19:02 | PC.NURSE ---
Pt intubated/sedated/paralyzed, Vent settings adjusted to AC VC Ti 0.63, RR 32, Tv 480, PEEP 14, FiO2 100%, repeat VBG trending in right direction, SaO2 91% Pt hypotensive 88/49 on levo max at 0.3mcg/kg/min, epinephrine drip added and titrated up to 0.3mcg/kg/min. Pt only put out 63ml of urine over 12hrs. Pt remains NSR 90s. Restraints removed. Bed locked and in lowest position.
[2020-04-23 19:16] LABS: Glucose, Whole Blood 294 mg/dL (60-115)
[2020-04-23 20:12] LABS: Glucose, Whole Blood 261 mg/dL (60-115)
[2020-04-23 20:14] LABS: Base Excess VBG -4.6 mmol/L; HCO3 VBG 25 mmol/L; PCO2 VBG 82 mmHg; PO2 VBG 54 mmHg
[2020-04-23 20:36] LABS: Anion Gap 19 (12-20); Blood Urea Nitrogen 65 mg/dL (9-16); Calcium 7.6 mg/dL (8.4-10.2); Carbon Dioxide 28 mmol/L (22-29); Chloride 100 mmol/L (96-108); Creatinine Clr Calc Pharmacy 22.4; Estimated Glomerular Filt Rate 18; Glucose Random 264 mg/dL (60-115); Potassium 4.9 mmol/L (3.3-5.1); Sodium 142 mmol/L (135-145)
[2020-04-23] MEDS: Insulin Regular/NS 100 UNIT/100 ML PLAST..BAG 17 UNIT IVCONT (21:06)
[2020-04-23 21:16] LABS: Glucose, Whole Blood 248 mg/dL (60-115)
[2020-04-23 22:18] LABS: Glucose, Whole Blood 201 mg/dL (60-115)
[2020-04-23 23:23] LABS: Glucose, Whole Blood 151 mg/dL (60-115)
[2020-04-24] VITALS (32 sets, daily range): BP systolic 100–145; BP diastolic 45–66; PULSE 90–103; RESP 32; TEMP 37–37.6; O2SAT 87–94
[2020-04-24] MEDS: Piperacillin Sodium/Tazobactam 3.375 GM in 0.9 % Sodium Chloride 50 ML IV ×2 (00:02→05:37)
[2020-04-24 00:16] LABS: Glucose, Whole Blood 118 mg/dL (60-115)
[2020-04-24] MEDS: EPINEPHrine 5 MG in Dextrose 5 % 250 ML 60.86 MG IVCONT (00:51)
[2020-04-24] MEDS: Albumin Human 25 % 100 ML IV ×2 (00:52→02:15)
[2020-04-24] MEDS: methylPREDNISolone Sod Succ/PF 125 MG/2 ML VIAL 60 MG IVPUSH ×3 (00:53→15:17)
[2020-04-24] MEDS: propofoL 1,000 MG/100 ML VIAL 21.7 MG IVCONT ×5 (02:13→19:53)
[2020-04-24 02:29] LABS: Glucose, Whole Blood 69 mg/dL (60-115)
[2020-04-24 02:29] LABS: Glucose, Whole Blood 82 mg/dL (60-115)
--- NOTE | 2020-04-24 03:26 | PC.NURSE ---
Attempted to wean nimbex gtt, met with vent dysynchrony, tachypnea, and hypoxia. Nimbex resumed. Propofol remains on @ 40 mcg/kg/min. Tolerated weaning epi gtt. Insulin gtt per protocol. 1 amp d50 given for bg of 69. Gtt currently on hold. Vent settings unchanged, satting 88-92% on 100% fio2. No inline secretions. OGT to low int suction with brown, chunky aspirate. Has required irrigation to maintain patency. [facility] output <5 cc/hr. Skin intact.
[2020-04-24 03:29] LABS: Glucose, Whole Blood 150 mg/dL (60-115)
[2020-04-24 04:00] LABS: Glucose, Whole Blood 133 mg/dL (60-115)
[2020-04-24] MEDS: EPINEPHrine 5 MG in Dextrose 5 % 250 ML 27.66 MG IVCONT (05:32)
[2020-04-24 05:59] LABS: HCO3 VBG 36 mmol/L; PCO2 VBG 91 mmHg; PO2 VBG 70 mmHg; pH VBG 7.21 (7.32-7.43)
[2020-04-24 06:00] LABS: Base Excess VBG 7.4 mmol/L
[2020-04-24 06:06] LABS: Hematocrit 29.3 % (42-52); Hemoglobin 8.4 g/dl (14.0-18.0); MANUAL DIFF FLAG SCAN
[2020-04-24 06:07] LABS: PLT ABN DIST 1
[2020-04-24 06:08] LABS: Basophils Absolute Auto 0.1 X10*3/uL (0.0-0.2); Basophils Percent Auto 0.2 % (0-2); Imm Gran Abs Auto 0.92 X10*3/uL (0.00-0.03); Imm Gran Pct Auto 3.4 % (0.0-0.4); Lymphocytes Absolute Auto 0.3 X10*3/uL (1.2-4.9); Lymphocytes Percent Auto 1.3 % (20-40); Mean Corpuscular Hemoglobin 21.4 pg (27.0-33.0); Mean Platelet Volume 10.5 fL (9.4-12.4); Monocytes Absolute Auto 2.1 X10*3/uL (0.1-1.2); Monocytes Percent Auto 7.6 % (2-11); Neutrophils Absolute Auto 23.6 X10*3/uL (2.0-8.3); Neutrophils Percent Auto 87.5 % (45-73); Platelet Count 367 X10*3/uL (160-400); Red Blood Count 3.92 X10*6/uL (4.60-5.80); Red Cell Distribution Width 28.8 % (11.0-16.0); SCAN SMEAR FLAG 1
[2020-04-24 06:31] LABS: SLIDE REVIEW VERIFIED
[2020-04-24 06:35] LABS: Alanine Aminotransferase 111 U/L (0-40); Albumin Level 3.2 g/dL (3.5-5.0); Alkaline Phosphatase 92 U/L (39-117); Anion Gap 19 (12-20); Aspartate Amino Transferase 163 U/L (5-37); Bilirubin Total 0.5 mg/dL (0.0-1.0); Blood Urea Nitrogen 71 mg/dL (9-16); Calcium 6.8 mg/dL (8.4-10.2); Carbon Dioxide 32 mmol/L (22-29); Chloride 97 mmol/L (96-108); Creatinine Clr Calc Pharmacy 19.2; Estimated Glomerular Filt Rate 15; Glucose Random 177 mg/dL (60-115); Magnesium 2.9 mg/dL (1.6-2.6); Phosphorus 10.3 mg/dL (2.7-4.5); Potassium 5.8 mmol/L (3.3-5.1); Sodium 142 mmol/L (135-145); Total Protein 5.7 g/dL (6.5-8.0)
[2020-04-24 06:35] LABS: Glucose, Whole Blood 146 mg/dL (60-115)
[2020-04-24 06:55] LABS: Glucose, Whole Blood 155 mg/dL (60-115)
[2020-04-24] MEDS: Chlorhexidine Gluc Oral Rinse 15 ML MOUTHWASH BUCCAL ×3 (07:29→19:52)
[2020-04-24] MEDS: vancomycin HCL 1,000 MG in 0.9 % Sodium Chloride 250 ML 270 MG IV (07:39)
[2020-04-24] MEDS: Piperacillin Sodium/Tazobactam 2.25 GM in 0.9 % Sodium Chloride 50 ML IV ×3 (08:25→19:52)
[2020-04-24 09:17] LABS: Glucose, Whole Blood 170 mg/dL (60-115)
[2020-04-24] MEDS: Sodium Bicarbonate 8.4% 100 MEQ in Dextrose 5 % 900 ML IV ×2 (10:35→19:53)
[2020-04-24] MEDS: Enoxaparin Sodium 40 MG/0.4 ML SYRINGE SUBCUT (10:36)
--- NOTE | 2020-04-24 10:41 | P.PNCC_ITS ---
Subjective Subjective Date of Service: 04/24/20 Interval History: Mr. Rehman was transferred to ICU Fri night Apr 22 with acute hypoxemic and hypercarbic respiratory failure 2? COVID pneumonia. The patient is a 70 yo M with PMHx of diabetes, HTN, HLD, PVD, status post fem- pop bypass, and chronic iron deficiency anemia, on iron pills. A Chest CT in June 2018 showed severe interstitial lung disease at baseline. On April 06, he reportedly tested positive for COVID after approximately 1 week of shortness of breath and coughing. He presented to the ED on April 07 with increased shortness of breath and malaise, saturating 80% at room air. Hemoglobin was 7.7 on admission. Renal indices were normal. CTPA showed no emboli, but showed straightening of the left heart border consistent with increased right heart pressures. There was extensive interstitial lung disease with honeycombing and ground-glass opacities, worse compared to the prior CT, and c/w COVID. The patient was started on steroids, transfused 2 units of blood, and then admitted to Medicine. Remdesivir was given. Despite that, his course has been marked by progressive hypoxemia, even despite increasing his steroid dose. He developed refractory respiratory acidosis and was transferred to ICU on April 22 and emergently intubated. Despite the supramaximum ventilatory support including NMB, the patient still has severe respiratory acidosis, and has developed acute renal failure. The patient?s poor prognosis has been extensively discussed with the patient?s by CHET Purcell in [place]. She insisted on full support and doing whatever is necessary to keep him alive. On exam today, the patient remains on the Nimbex drip and is sedated w propofol. I added a fentanyl drip. He?s also on Levophed 0.2ug, Epinephrine 0.05ug, insulin gtt, and bicarb gtt. HR is 91, SR. BP 116/56. He?s been afebrile his entire hospital course. On VC+ mode (PRVC) 32/480/100%/+14, RR is 32, PIP is 47cm (down from 60?s), Ppl is 43, compliance is 19, ETCO2 33, Ve 16L, Sat high 80?s-90. CVBG this morning showed 7.21/91/+7 (down from PaCO2 of 147 yesterday). Pupils are equal, 1mm. No JVD at 30?. Normal exp phase. No edema. LABORATORY DATA: As below. Notably, white count is down to 27, BUN/creatinine are up to 71/4.0, phos is up to 10.3. MICROBIOLOGY: Sputum 04/23: ANTIBIOTICS: Zosyn. Vancomycin was discontinued this morning. IMPRESSION: 1. Underlying severe interstitial lung disease. 2. Bilateral COVID pneumonia. 3. Hypoxemic and hypercarbic resp failure 2? above, with refractory hypercapnia despite supramaximal ventilatory support, including NMB. 4. Hypotension presumed 2? maximal ventilatory and sedation requirements. 5. Acute renal failure secondary to ATN, 2? combination of COVID-19, hypotension, hypovolemia. Amazingly, despite large volume resuscitation, he is not (yet) edematous. 6. Hyperkalemia. Being treated with bicarb, epinephrine, and insulin drips. R echeck BMP at 5pm. 7. ID: Cannot rule out superimposed bacterial infection. But blood cultures and sputum cultures are negative so far. It?s reasonable to continue Zosyn one more day, but I d/c?d the vanco this morning. (It?s possible that there is an element of viral sepsis, but FWIW, the lactic acid levels are inconsistent with the severity of his illness, making sepsis irrelevant, if present.) 8. Metabolic: I changed his bicarb drip to D5W with bicarb in order to allow us to start the insulin drip to treat his hyperkalemia. This is a most unfortunate situation, but in this patient?s case, the inescapable conclusion is that there is no prognosis for survival. None. And (IMO) that is largely bec of his severe underlying lung disease, not necessarily bec of the impossibility of surviving COVID pneumonia. There is no indication for dialysis here bec there is no indication that di alysis would alter the ultimate outcome of Mr. Rehman?s disease course. The same is true for cardiopulmonary resuscitation, should cardiac arrest ensue. I have discussed the patient and all the above at length with Dr. Johnson, CHET Purcell, and with Dr. Christensen. Repeat labs will be drawn at 5pm tonight. Critical care time: 90+ min. Physical Exam Vital Signs: Vital Signs: Last Vital Signs Temp 99.1 F 04/24/20 10:00 Pulse 95 04/24/20 10:00 Resp 32 H 04/24/20 10:00 BP 145/57 H 04/24/20 10:35 Pulse Ox 89 L 04/24/20 10:00 Body Mass Index 28.5 Objective Data Labs CBC & Chem 7: 04/24/20 05:40 04/24/20 05:40 Labs: Laboratory Results - last 24 hr 04/23/20 04/23/20 04/23/20 11:37 12:46 13:30 WBC RBC Hgb Hct MCV MCH MCHC RDW Plt Count MPV Immature Gran % (Auto) Neut % (Auto) Lymph % (Auto) [place] % (Auto) Eos % (Auto) Baso % (Auto) Lymph # (Auto) [place] # (Auto) Eos # (Auto) Baso # (Auto) Abs Immat Gran (auto) Absolute Neuts (auto) Absolute Nucleated RBC Nucleated RBC % (auto) Smear Tech's Comments VBG pH VBG pCO2 VBG pO2 VBG HCO3 VBG O2 Saturation VBG Base Excess Sodium Potassium Chloride Carbon Dioxide Anion Gap BUN Creatinine Estim Creat Clear Calc Estimated GFR POC Glucose 306 H 311 H Random Glucose Calcium Phosphorus Magnesium Total Bilirubin AST ALT Alkaline Phosphatase Troponin I High Sens 487.2 H D Total Protein Albumin Random Vancomycin 04/23/20 04/23/20 04/23/20 14:06 14:59 15:59 WBC RBC Hgb Hct MCV MCH MCHC RDW Plt Count MPV Immature Gran % (Auto) Neut % (Auto) Lymph % (Auto) [place] % (Auto) Eos % (Auto) Baso % (Auto) Lymph # (Auto) [place] # (Auto) Eos # (Auto) Baso # (Auto) Abs Immat Gran (auto) Absolute Neuts (auto) Absolute Nucleated RBC Nucleated RBC % (auto) Smear Tech's Comments VBG pH VBG pCO2 VBG pO2 VBG HCO3 VBG O2 Saturation VBG Base Excess Sodium Potassium Chloride Carbon Dioxide Anion Gap BUN Creatinine Estim Creat Clear Calc Estimated GFR POC Glucose 318 H 307 H 310 H Random Glucose Calcium Phosphorus Magnesium Total Bilirubin AST ALT Alkaline Phosphatase Troponin I High Sens Total Protein Albumin Random Vancomycin 04/23/20 04/23/20 04/23/20 17:03 18:07 19:10 WBC RBC Hgb Hct MCV MCH MCHC RDW Plt Count MPV Immature Gran % (Auto) Neut % (Auto) Lymph % (Auto) [place] % (Auto) Eos % (Auto) Baso % (Auto) Lymph # (Auto) [place] # (Auto) Eos # (Auto) Baso # (Auto) Abs Immat Gran (auto) Absolute Neuts (auto) Absolute Nucleated RBC Nucleated RBC % (auto) Smear Tech's Comments VBG pH VBG pCO2 VBG pO2 VBG HCO3 VBG O2 Saturation VBG Base Excess Sodium Potassium Chloride Carbon Dioxide Anion Gap BUN Creatinine Estim Creat Clear Calc Estimated GFR POC Glucose 302 H 304 H 294 H Random Glucose Calcium Phosphorus Magnesium Total Bilirubin AST ALT Alkaline Phosphatase Troponin I High Sens Total Protein Albumin Random Vancomycin 04/23/20 04/23/20 04/23/20 20:01 20:01 20:06 WBC RBC Hgb Hct MCV MCH MCHC RDW Plt Count MPV Immature Gran % (Auto) Neut % (Auto) Lymph % (Auto) [place] % (Auto) Eos % (Auto) Baso % (Auto) Lymph # (Auto) [place] # (Auto) Eos # (Auto) Baso # (Auto) Abs Immat Gran (auto) Absolute Neuts (auto) Absolute Nucleated RBC Nucleated RBC % (auto) Smear Tech's Comments VBG pH 7.10 L* VBG pCO2 82 VBG pO2 54 VBG HCO3 25 VBG O2 Saturation 80.0 VBG Base Excess -4.6 Sodium 142 Potassium 4.9 Chloride 100 Carbon Dioxide 28 Anion Gap 19 BUN 65 H Creatinine 3.46 H Estim Creat Clear Calc 22.4 Estimated GFR 18 POC Glucose 261 H Random Glucose 264 H D Calcium 7.6 L D Phosphorus Magnesium Total Bilirubin AST ALT Alkaline Phosphatase Troponin I High Sens Total Protein Albumin Random Vancomycin 04/23/20 04/23/20 04/23/20 21:11 22:03 23:17 WBC RBC Hgb Hct MCV MCH MCHC RDW Plt Count MPV Immature Gran % (Auto) Neut % (Auto) Lymph % (Auto) [place] % (Auto) Eos % (Auto) Baso % (Auto) Lymph # (Auto) [place] # (Auto) Eos # (Auto) Baso # (Auto) Abs Immat Gran (auto) Absolute Neuts (auto) Absolute Nucleated RBC Nucleated RBC % (auto) Smear Tech's Comments VBG pH VBG pCO2 VBG pO2 VBG HCO3 VBG O2 Saturation VBG Base Excess Sodium Potassium Chloride Carbon Dioxide Anion Gap BUN Creatinine Estim Creat Clear Calc Estimated GFR POC Glucose 248 H 201 H 151 H Random Glucose Calcium Phosphorus Magnesium Total Bilirubin AST ALT Alkaline Phosphatase Troponin I High Sens Total Protein Albumin Random Vancomycin 04/24/20 04/24/20 04/24/20 00:11 00:58 02:17 WBC RBC Hgb Hct MCV MCH MCHC RDW Plt Count MPV Immature Gran % (Auto) Neut % (Auto) Lymph % (Auto) [place] % (Auto) Eos % (Auto) Baso % (Auto) Lymph # (Auto) [place] # (Auto) Eos # (Auto) Baso # (Auto) Abs Immat Gran (auto) Absolute Neuts (auto) Absolute Nucleated RBC Nucleated RBC % (auto) Smear Tech's Comments VBG pH VBG pCO2 VBG pO2 VBG HCO3 VBG O2 Saturation VBG Base Excess Sodium Potassium Chloride Carbon Dioxide Anion Gap BUN Creatinine Estim Creat Clear Calc Estimated GFR POC Glucose 118 H 82 69 Random Glucose Calcium Phosphorus Magnesium Total Bilirubin AST ALT Alkaline Phosphatase Troponin I High Sens Total Protein Albumin Random Vancomycin 04/24/20 04/24/20 04/24/20 03:24 03:54 05:40 WBC RBC Hgb Hct MCV MCH MCHC RDW Plt Count MPV Immature Gran % (Auto) Neut % (Auto) Lymph % (Auto) [place] % (Auto) Eos % (Auto) Baso % (Auto) Lymph # (Auto) [place] # (Auto) Eos # (Auto) Baso # (Auto) Abs Immat Gran (auto) Absolute Neuts (auto) Absolute Nucleated RBC Nucleated RBC % (auto) Smear Tech's Comments VBG pH VBG pCO2 VBG pO2 VBG HCO3 VBG O2 Saturation VBG Base Excess Sodium Potassium Chloride Carbon Dioxide Anion Gap BUN Creatinine Estim Creat Clear Calc Estimated GFR POC Glucose 150 H 133 H Random Glucose Calcium Phosphorus Magnesium Total Bilirubin AST ALT Alkaline Phosphatase Troponin I High Sens Total Protein Albumin Random Vancomycin 10.0 L 04/24/20 04/24/20 04/24/20 05:40 05:40 05:40 WBC 27.0 H RBC 3.92 L Hgb 8.4 L Hct 29.3 L MCV 74.0 L MCH 21.4 L MCHC 29.0 L RDW 28.8 H Plt Count 367 D MPV 10.5 Immature Gran % (Auto) 3.4 H Neut % (Auto) 87.5 H Lymph % (Auto) 1.3 L [place] % (Auto) 7.6 Eos % (Auto) 0.0 Baso % (Auto) 0.2 Lymph # (Auto) 0.3 L [place] # (Auto) 2.1 H Eos # (Auto) 0.0 Baso # (Auto) 0.1 Abs Immat Gran (auto) 0.92 H Absolute Neuts (auto) 23.6 H Absolute Nucleated RBC 0.000 Nucleated RBC % (auto) 0.0 Smear Tech's Comments VERIFIED VBG pH Cancelled VBG pCO2 Cancelled VBG pO2 Cancelled VBG HCO3 Cancelled VBG O2 Saturation Cancelled VBG Base Excess Cancelled Sodium 142 Potassium 5.8 H Chloride 97 Carbon Dioxide 32 H Anion Gap 19 BUN 71 H Creatinine 4.03 H* Estim Creat Clear Calc 19.2 Estimated GFR 15 POC Glucose Random Glucose 177 H Calcium 6.8 L D Phosphorus 10.3 H Magnesium 2.9 H Total Bilirubin 0.5 AST 163 H ALT 111 H Alkaline Phosphatase 92 Troponin I High Sens Total Protein 5.7 L Albumin 3.2 L Random Vancomycin 04/24/20 04/24/20 04/24/20 05:43 05:52 06:51 WBC RBC Hgb Hct MCV MCH MCHC RDW Plt Count MPV Immature Gran % (Auto) Neut % (Auto) Lymph % (Auto) [place] % (Auto) Eos % (Auto) Baso % (Auto) Lymph # (Auto) [place] # (Auto) Eos # (Auto) Baso # (Auto) Abs Immat Gran (auto) Absolute Neuts (auto) Absolute Nucleated RBC Nucleated RBC % (auto) Smear Tech's Comments VBG pH 7.21 L VBG pCO2 91 VBG pO2 70 VBG HCO3 36 VBG O2 Saturation 92.0 VBG Base Excess 7.4 Sodium Potassium Chloride Carbon Dioxide Anion Gap BUN Creatinine Estim Creat Clear Calc Estimated GFR POC Glucose 146 H 155 H Random Glucose Calcium Phosphorus Magnesium Total Bilirubin AST ALT Alkaline Phosphatase Troponin I High Sens Total Protein Albumin Random Vancomycin 04/24/20 09:12 WBC RBC Hgb Hct MCV MCH MCHC RDW Plt Count MPV Immature Gran % (Auto) Neut % (Auto) Lymph % (Auto) [place] % (Auto) Eos % (Auto) Baso % (Auto) Lymph # (Auto) [place] # (Auto) Eos # (Auto) Baso # (Auto) Abs Immat Gran (auto) Absolute Neuts (auto) Absolute Nucleated RBC Nucleated RBC % (auto) Smear Tech's Comments VBG pH VBG pCO2 VBG pO2 VBG HCO3 VBG O2 Saturation VBG Base Excess Sodium Potassium Chloride Carbon Dioxide Anion Gap BUN Creatinine Estim Creat Clear Calc Estimated GFR POC Glucose 170 H Random Glucose Calcium Phosphorus Magnesium Total Bilirubin AST ALT Alkaline Phosphatase Troponin I High Sens Total Protein Albumin Random Vancomycin Microbiology Microbiology Results: Microbiology 04/22/20 23:36 Blood - Central Line Blood Culture - Preliminary No growth after 24 hours. 04/23/20 02:38 Sputum - Suctioned Gram Stain - Final 04/23/20 02:38 Sputum - Suctioned Sputum Culture - Preliminary Normal so far. 04/22/20 23:36 Blood - Central Line Blood Culture - Preliminary No growth after 24 hours. 04/07/20 14:45 Blood - Venous Blood Culture - Final No growth after 5 days. 04/07/20 14:37 Blood - Venous Blood Culture - Final No growth after 5 days. Progress Note: A&P Time Spent With Patient Time: Total time spent is greater than 50% in coordination of care (as documented) at patient's floor/unit and/or counseling patient: Total time spent with greater than 50% in coordination of care (as documented) at patient's floor/unit and/or counseling patient:: 0 Critical Care Time Critical Care Time (minutes): 90
[2020-04-24 11:55] LABS: Glucose, Whole Blood 190 mg/dL (60-115)
[2020-04-24] MEDS: Sodium Polystyrene Sulfon/Sorb 15 GM/60 ML ORAL.SUSP 45 GM PR ×2 (12:04→15:18)
[2020-04-24] MEDS: fentaNYL citrate/NS 1,000 MCG/100 ML PLAST..BAG 5 MCG IVCONT (12:07)
[2020-04-24 13:50] LABS: Glucose, Whole Blood 181 mg/dL (60-115)
--- NOTE | 2020-04-24 14:32 | PC.NURSE ---
pt on propofol for sedation and nimbex for vent sychrony. Fentanyl drip started per md, restraints off levophed being titrated down, titrate levo first per MD, epi continues at 0.05 et tube at 28cm at the lip, adjusted by rt per md from 27 to 28cm, no inline secretions, o2 sat trending 88-91% on 100% fio2 og on intermittent suction, emptied canister for 600ml/ started on kayexalte and given rectally urine output 100ml this shift continues on insulin drip and adjusted per MD, currently at 5units/hr, bicarb drip changed to d5w
[2020-04-24 15:49] LABS: Creatinine Urine 75.96 mg/dL; Total Protein Urine Random 104 mg/dL (<12)
[2020-04-24 16:37] LABS: Glucose, Whole Blood 136 mg/dL (60-115)
--- NOTE | 2020-04-24 17:38 | PC.NURSE ---
THIS RN HAD A LONG CONVERSATION WITH PATIENTS TOMER AND THE AERIAL PLANTING AND CULTIVATION MANAGER ABOUT PATIENTS STATUS. GAVE US PATIENTS CELLPHONE CODE SO WE CAN USE HIS PHONE TO BE ABLE TO FACETIME WITH HIS FAMILY. THIS RN WAS ABLE TO FACETIME WITH PATIENTS AND OTHER MEMBERS OF HIS FAMILY TONDARRION. 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 ALL HIS BELONGINGS ARE BAGGED AND IN THE CLOSET READY FOR PICKUP. CELLPHONE CODE IS: [id number]
[2020-04-24 18:10] LABS: Anion Gap 20 (12-20); Blood Urea Nitrogen 75 mg/dL (9-16); Calcium 6.3 mg/dL (8.4-10.2); Carbon Dioxide 32 mmol/L (22-29); Chloride 95 mmol/L (96-108); Creatinine Clr Calc Pharmacy 16.5; Estimated Glomerular Filt Rate 12; Glucose Random 156 mg/dL (60-115); Potassium 5.9 mmol/L (3.3-5.1); Sodium 141 mmol/L (135-145)
[2020-04-24 18:32] LABS: Glucose, Whole Blood 162 mg/dL (60-115)
[2020-04-24 19:14] LABS: Hematocrit 27.9 % (42-52); NRBC Pct Auto 0.1 /100WBC (0.0-0.2)
[2020-04-24 19:16] LABS: Mean Corpuscular HGB Conc 28.7 g/dl (31.0-36.0); Mean Corpuscular Volume 73.2 fL (80-98); Mean Platelet Volume 10.3 fL (9.4-12.4); Platelet Count 276 X10*3/uL (160-400); Red Blood Count 3.81 X10*6/uL (4.60-5.80); Red Cell Distribution Width 29.1 % (11.0-16.0); White Blood Count 22.5 X10*3/uL (4.8-10.8)
[2020-04-24 19:17] LABS: PLT ABN DIST 1
[2020-04-24 19:24] LABS: Prothrombin Time 11.9 SEC (10.8-13.0)
[2020-04-24 19:26] LABS: PTT Heparin Drip 28.2 SEC (53-77.9)
[2020-04-24 19:27] LABS: PTT Heparin Drip 27.8 SEC (53-77.9)
[2020-04-24] MEDS: Heparin Sodium,Porcine 5,000 UNIT/ML VIAL 2000 UNIT IVPUSH (19:52)
[2020-04-24] MEDS: EPINEPHrine 5 MG in Dextrose 5 % 250 ML 13.83 MG IVCONT (19:54)
[2020-04-24] MEDS: Insulin Regular/NS 100 UNIT/100 ML PLAST..BAG IVCONT (19:54)
[2020-04-24] MEDS: Heparin Sodium,Porcine/1/2NS 25,000 UNIT/250 ML IV.SOLN 10 UNIT IVCONT (19:55)
--- NOTE | 2020-04-24 20:13 | PM.EVENT ---
Event Note Date of Service: 04/24/20 Event Note: Consult requested re MARTA and Hyperkalemia Pt with recent COVID infection REsp failure - Hypercarbic/ Hypoxemic Continue medical Rx for high K Urine studies ordered Poor prognosis based on Dr. Tapia Poor HD candidate - K is better- No immediate indication IV Hydration as ordered Continue d/w Family re goals of care F/u labs - Repeat Kayexalate 30 g x 2 doses Q 2 hrly / Insulin/ dextrose if K is > 5.5 Please call us if further recommendations Dr. Christensen
[2020-04-24 21:34] LABS: Glucose, Whole Blood 178 mg/dL (60-115)
--- NOTE | 2020-04-24 21:46 | P.ACPN_ITS ---
Advanced Care Planning Note Advanced Care Planning Note Discussed with: family member(s) (Cira Villarreal ()) Time spent (in minutes): 30 Narrative: At 2035pm I spoke to the patient's over the phone, Mrs Cira Rehman understands of her critical condition and the fact that she has been here significantly sick as well as acknowledge that he has had significant pulmonary disease that was causing problems breathing for over a year. She has been aware of all the different changes and transition for the worse, fortunately she understands that his current prognosis is very poor despite of any medical left for that we make. Upon discussing further goals of care, she agrees that perhaps enough is enough and she does not him to suffer, therefore we have discussed the possibility of making him comfort measures only to which she agrees, detailed explanation of what this entitles was given and the information was corroborated by the patient's nurse Noemy. [id number] Family in the Hospital, ( and son) held a meeting with them x 20 min 2340 At this point will withdraw every care and will simply keep opioids for comfort, we will terminally extubate the patient and allow him to past to a better life in a natural, humane and non- suffering way. All the drips were shut off [id number] patient was extubated The patient at 1200 AM OF 04/25/2020 At this time, the patient has no heartbeat, no palpable pulses, pupils are fixed at 5 mm bilaterally, overall that anterior chamber and cornea of the eyes appear glossy, no spontaneous breathing. There is no corneal reflexes bilaterally, capillary refill of the fingers and toes is significantly delayed and there is cyanosis with cool extremities. Patient was pronounced at this time and Certificate Completed. Organ Center Called by RN. Organ center was called, the patient was declined. certificate completed as well as discharge summary. Case was discussed in detail with Dr. Tapia. He is aware of all the above as well as the plan of care for this patient. Total critical time with all the above discussions, plan of care 30 min Problems Discussed (1) Acute and chronic respiratory failure, unspecified whether with hypoxia or hypercapnia: (2) Viral sepsis: (3) Cardiomyopathy: (4) Acute respiratory distress syndrome (ARDS) due to COVID-19 virus: (5) Acute renal failure:
--- NOTE | 2020-04-24 21:48 | PM.DS ---
DS: Providers Provider Date of Service: 04/25/20 Date of admission: 04/07/20 15:20 Primary care physician: Unknown Physician Consults: ADMISSION/ DISCHARGE DIAGNOSIS: 1. Underlying severe interstitial lung disease. 2. Bilateral COVID pneumonia. 3. Hypoxemic and hypercarbic resp failure 2? above, with refractory hypercapnia despite supramaximal ventilatory support, including NMB. 4. Hypotension presumed 2? maximal ventilatory and sedation requirements. 5. Acute renal failure secondary to ATN, 2? combination of COVID-19, hypotension, hypovolemia. 6. Hyperkalemia. Being treated with bicarb, epinephrine, and insulin drips. Recheck BMP at 5pm. 7. ID: Cannot rule out superimposed bacterial infection. The patient is a 70 yo M with PMHx of diabetes, HTN, HLD, PVD, status post fem-pop bypass, and chronic iron deficiency anemia, on iron pills. A Chest CT in June 2018 showed severe interstitial lung disease at baseline. On April 06, he reportedly tested positive for COVID after approximately 1 week of shortness of breath and coughing. He presented to the ED on April 07 with increased shortness of breath and malaise, saturating 80% at room air. Hemoglobin was 7.7 on admission. Renal indices were normal. CTPA showed no emboli, but showed straightening of the left heart border consistent with increased right heart pressures. There was extensive interstitial lung disease with honeycombing and ground-glass opacities, worse compared to the prior CT, and c/w COVID. The patient was started on steroids, transfused 2 units of blood, and then admitted to Medicine. Remdesivir was given. Despite that, his course has been marked by progressive hypoxemia, even despite increasing his steroid dose. He developed refractory respiratory acidosis and was transferred to ICU on April 22 and emergently intubated. Despite the supramaximum ventilatory support including NMB, the patient still has severe respiratory acidosis, and has developed acute renal failure. The patient?s poor prognosis has been extensively discussed with the patient?s by CHET Purcell in [place]. She insisted on full support and doing whatever is necessary to keep him alive. On exam today, the patient remains on the Nimbex drip and is sedated w propofol. I added a fentanyl drip. He?s also on Levophed 0.2ug, Epinephrine 0.05ug, insulin gtt, and bicarb gtt. HR is 91, SR. BP 116/56. He?s been afebrile his entire hospital course. On VC+ mode (PRVC) 32/480/100%/+14, RR is 32, PIP is 47cm (down from 60?s), Ppl is 43, compliance is 19, ETCO2 33, Ve 16L, Sat high 80?s-90. CVBG this morning showed 7.21/91/+7 (down from PaCO2 of 147 yesterday). Pupils are equal, 1mm. No JVD at 30?. Normal exp phase. No edema. LABORATORY DATA: As below. Notably, white count is down to 27, BUN/creatinine are up to 71/4.0, phos is up to 10.3. MICROBIOLOGY: Sputum 04/23: ANTIBIOTICS: Zosyn. Vancomycin was discontinued this morning. This is a most unfortunate situation, but in this patient?s case, the inescapable conclusion is that there is no prognosis for survival. None. And (IMO) that is largely bec of his severe underlying lung disease, not necessarily bec of the impossibility of surviving COVID pneumonia. There is no indication for dialysis here bec there is no indication that dialysis would alter the ultimate outcome of Mr. Rehman?s disease course. The same is true for cardiopulmonary resuscitation, should cardiac arrest ensue. Today at 2034 pm I spoke to the patient's over the phone, Mrs Cira Rehman understands of her critical condition and the fact that she has been here significantly sick as well as acknowledge that he has had significant pulmonary disease that was causing problems breathing for over a year. She has been aware of all the different changes and transition for the worse, fortunately she understands that his current prognosis is very poor despite of any medical left for that we make. Upon discussing further goals of care, she agrees that perhaps enough is enough and she does not him to suffer, therefore we have discussed the possibility of making him comfort measures only to which she agrees, detailed explanation of what this entitles was given and the information was corroborated by the patient's nurse Noemy. 2320 Family in the Hospital, ( and son ) held a meeting with them x 20 min 2340 At this point will withdraw every care and will simply keep opioids for comfort, we will terminally extubate the patient and allow him to past to a better life in a natural, humane and non- suffering way. All the drips were shut off at 2342 patient was extubated The patient at 1200 AM OF 04/25/2020 At this time, the patient has no heartbeat, no palpable pulses, pupils are fixed at 5 mm bilaterally, overall that anterior chamber and cornea of the eyes appear glossy, no spontaneous breathing. There is no corneal reflexes bilaterally, capillary refill of the fingers and toes is significantly delayed and there is cyanosis with cool extremities. Patient was pronounced at this time and Certificate Completed. Organ Center Called by RN. Organ center was called, the patient was declined. Family informed about the patient's . certificate completed as well as discharge summary. Case was discussed in detail with Dr. Tapia. He is aware of all the above as well as the plan of care for this patient. Total critical time with all the above discussions, plan of care 60 min 04/07/20 18:05 Consult to Infectious Diseases Routine Consulting Provider: Celeste Bernard Reason for consultation: covid Has provider been notified: No 04/21/20 07:39 Consult to Pulmonology Routine Consulting Provider: Lane Ashley Reason for consultation: covid with worsening sob Has provider been notified: No 04/24/20 16:28 Consult to Nephrology Routine Consulting Provider: Jordan Christensen Reason for consultation: Acute renal failure Has provider been notified: Yes DS: Diagnosis Discharge Diagnosis (1) Acute and chronic respiratory failure, unspecified whether with hypoxia or hypercapnia: Status: Acute (2) Viral sepsis: Status: Acute (3) Cardiomyopathy: Status: Acute (4) Acute respiratory distress syndrome (ARDS) due to COVID-19 virus: Status: Acute (5) Acute renal failure: Status: Acute DS: Medications Discharge Medications Home Medications: Home Medications Medication Instructions Recorded Confirmed acetaminophen 500 mg PO TID PRN 04/07/20 04/07/20 aspirin 81 mg PO DAILY 04/07/20 04/07/20 atorvastatin 80 mg PO BEDTIME 04/07/20 04/07/20 betamethasone dipropionate 1 appl TOPICAL BID PRN 04/07/20 04/07/20 bupropion HCl 300 mg PO DAILY 04/07/20 04/07/20 cilostazol 100 mg PO BID 04/07/20 04/07/20 clopidogrel 75 mg PO DAILY 04/07/20 04/07/20 clotrimazole 1 appl TOPICAL DAILY 04/07/20 04/07/20 cyanocobalamin (vitamin B-12) 1,000 mcg PO DAILY 04/07/20 04/07/20 diltiazem HCl 420 mg PO DAILY 04/07/20 04/07/20 folic acid 1 mg PO DAILY 04/07/20 04/07/20 insulin aspart U-100 [Novolog See Rx Instructions .ROUTE .COMPLEX 04/07/20 04/07/20 U-100 Insulin aspart] insulin glargine [Lantus U-100 15 unit SUBCUT DAILY 04/07/20 04/07/20 Insulin] latanoprost 1 drp OPHTHALMIC (EYE) QPM 04/07/20 04/07/20 lisinopril-hydrochlorothiazide 1 tab PO BID 04/07/20 04/07/20 tolterodine 4 mg PO DAILY 04/07/20 04/07/20 zolpidem 10 mg PO BEDTIME PRN 04/07/20 04/07/20 DS: Summary Time Spent with Patient Time attestation: Total time spent providing and/or coordinating discharge services: Discharge coordination time: Greater than 30 minutes Physical Exam Vital Signs: Vital Signs: Last Vital Signs Temp 98.8 F 04/24/20 20:00 Pulse 93 04/24/20 21:00 Resp 32 H 04/24/20 21:00 BP 141/66 H 04/24/20 21:00 Pulse Ox 92 04/24/20 21:00 Body Mass Index 28.5 DS: Data Data Completed and Pending Labs on day of discharge: Laboratory Results - last 24 hr 04/23/20 04/23/20 04/24/20 22:03 23:17 00:11 WBC RBC Hgb Hct MCV MCH MCHC RDW Plt Count MPV Immature Gran % (Auto) Neut % (Auto) Lymph % (Auto) Liberty % (Auto) Eos % (Auto) Baso % (Auto) Lymph # (Auto) [place] # (Auto) Eos # (Auto) Baso # (Auto) Abs Immat Gran (auto) Absolute Neuts (auto) Absolute Nucleated RBC Nucleated RBC % (auto) Smear Tech's Comments PT INR PTT (Heparin Protocol) VBG pH VBG pCO2 VBG pO2 VBG HCO3 VBG O2 Saturation VBG Base Excess Sodium Potassium Chloride Carbon Dioxide Anion Gap BUN Creatinine Estim Creat Clear Calc Estimated GFR POC Glucose 201 H 151 H 118 H Random Glucose Calcium Phosphorus Magnesium Total Bilirubin AST ALT Alkaline Phosphatase Troponin I High Sens Total Protein Albumin U Random Total Protein Ur Random Sodium Urine Creatinine Random Vancomycin 04/24/20 04/24/20 04/24/20 00:58 02:17 03:24 WBC RBC Hgb Hct MCV MCH MCHC RDW Plt Count MPV Immature Gran % (Auto) Neut % (Auto) Lymph % (Auto) Liberty % (Auto) Eos % (Auto) Baso % (Auto) Lymph # (Auto) Liberty # (Auto) Eos # (Auto) Baso # (Auto) Abs Immat Gran (auto) Absolute Neuts (auto) Absolute Nucleated RBC Nucleated RBC % (auto) Smear Tech's Comments PT INR PTT (Heparin Protocol) VBG pH VBG pCO2 VBG pO2 VBG HCO3 VBG O2 Saturation VBG Base Excess Sodium Potassium Chloride Carbon Dioxide Anion Gap BUN Creatinine Estim Creat Clear Calc Estimated GFR POC Glucose 82 69 150 H Random Glucose Calcium Phosphorus Magnesium Total Bilirubin AST ALT Alkaline Phosphatase Troponin I High Sens Total Protein Albumin U Random Total Protein Ur Random Sodium Urine Creatinine Random Vancomycin 04/24/20 04/24/20 04/24/20 03:54 05:40 05:40 WBC 27.0 H RBC 3.92 L Hgb 8.4 L Hct 29.3 L MCV 74.0 L MCH 21.4 L MCHC 29.0 L RDW 28.8 H Plt Count 367 D MPV 10.5 Immature Gran % (Auto) 3.4 H Neut % (Auto) 87.5 H Lymph % (Auto) 1.3 L Liberty % (Auto) 7.6 Eos % (Auto) 0.0 Baso % (Auto) 0.2 Lymph # (Auto) 0.3 L Liberty # (Auto) 2.1 H Eos # (Auto) 0.0 Baso # (Auto) 0.1 Abs Immat Gran (auto) 0.92 H Absolute Neuts (auto) 23.6 H Absolute Nucleated RBC 0.000 Nucleated RBC % (auto) 0.0 Smear Tech's Comments VERIFIED PT INR PTT (Heparin Protocol) VBG pH VBG pCO2 VBG pO2 VBG HCO3 VBG O2 Saturation VBG Base Excess Sodium Potassium Chloride Carbon Dioxide Anion Gap BUN Creatinine Estim Creat Clear Calc Estimated GFR POC Glucose 133 H Random Glucose Calcium Phosphorus Magnesium Total Bilirubin AST ALT Alkaline Phosphatase Troponin I High Sens Total Protein Albumin U Random Total Protein Ur Random Sodium Urine Creatinine Random Vancomycin 10.0 L 04/24/20 04/24/20 04/24/20 05:40 05:40 05:40 WBC RBC Hgb Hct MCV MCH MCHC RDW Plt Count MPV Immature Gran % (Auto) Neut % (Auto) Lymph % (Auto) Liberty % (Auto) Eos % (Auto) Baso % (Auto) Lymph # (Auto) Liberty # (Auto) Eos # (Auto) Baso # (Auto) Abs Immat Gran (auto) Absolute Neuts (auto) Absolute Nucleated RBC Nucleated RBC % (auto) Smear Tech's Comments PT INR PTT (Heparin Protocol) VBG pH Cancelled VBG pCO2 Cancelled VBG pO2 Cancelled VBG HCO3 Cancelled VBG O2 Saturation Cancelled VBG Base Excess Cancelled Sodium 142 Potassium 5.8 H Chloride 97 Carbon Dioxide 32 H Anion Gap 19 BUN 71 H Creatinine 4.03 H* Estim Creat Clear Calc 19.2 Estimated GFR 15 POC Glucose Random Glucose 177 H Calcium 6.8 L D Phosphorus 10.3 H Magnesium 2.9 H Total Bilirubin 0.5 AST 163 H ALT 111 H Alkaline Phosphatase 92 Troponin I High Sens TNP Total Protein 5.7 L Albumin 3.2 L U Random Total Protein Ur Random Sodium Urine Creatinine Random Vancomycin 04/24/20 04/24/20 04/24/20 05:43 05:52 06:51 WBC RBC Hgb Hct MCV MCH MCHC RDW Plt Count MPV Immature Gran % (Auto) Neut % (Auto) Lymph % (Auto) Liberty % (Auto) Eos % (Auto) Baso % (Auto) Lymph # (Auto) Liberty # (Auto) Eos # (Auto) Baso # (Auto) Abs Immat Gran (auto) Absolute Neuts (auto) Absolute Nucleated RBC Nucleated RBC % (auto) Smear Tech's Comments PT INR PTT (Heparin Protocol) VBG pH 7.21 L VBG pCO2 91 VBG pO2 70 VBG HCO3 36 VBG O2 Saturation 92.0 VBG Base Excess 7.4 Sodium Potassium Chloride Carbon Dioxide Anion Gap BUN Creatinine Estim Creat Clear Calc Estimated GFR POC Glucose 146 H 155 H Random Glucose Calcium Phosphorus Magnesium Total Bilirubin AST ALT Alkaline Phosphatase Troponin I High Sens Total Protein Albumin U Random Total Protein Ur Random Sodium Urine Creatinine Random Vancomycin 04/24/20 04/24/20 04/24/20 09:12 10:45 13:21 WBC RBC Hgb Hct MCV MCH MCHC RDW Plt Count MPV Immature Gran % (Auto) Neut % (Auto) Lymph % (Auto) Liberty % (Auto) Eos % (Auto) Baso % (Auto) Lymph # (Auto) Liberty # (Auto) Eos # (Auto) Baso # (Auto) Abs Immat Gran (auto) Absolute Neuts (auto) Absolute Nucleated RBC Nucleated RBC % (auto) Smear Tech's Comments PT INR PTT (Heparin Protocol) VBG pH VBG pCO2 VBG pO2 VBG HCO3 VBG O2 Saturation VBG Base Excess Sodium Potassium Chloride Carbon Dioxide Anion Gap BUN Creatinine Estim Creat Clear Calc Estimated GFR POC Glucose 170 H 190 H 181 H Random Glucose Calcium Phosphorus Magnesium Total Bilirubin AST ALT Alkaline Phosphatase Troponin I High Sens Total Protein Albumin U Random Total Protein Ur Random Sodium Urine Creatinine Random Vancomycin 04/24/20 04/24/20 04/24/20 15:14 16:24 17:32 WBC RBC Hgb Hct MCV MCH MCHC RDW Plt Count MPV Immature Gran % (Auto) Neut % (Auto) Lymph % (Auto) Liberty % (Auto) Eos % (Auto) Baso % (Auto) Lymph # (Auto) Liberty # (Auto) Eos # (Auto) Baso # (Auto) Abs Immat Gran (auto) Absolute Neuts (auto) Absolute Nucleated RBC Nucleated RBC % (auto) Smear Tech's Comments PT INR PTT (Heparin Protocol) VBG pH VBG pCO2 VBG pO2 VBG HCO3 VBG O2 Saturation VBG Base Excess Sodium Potassium Chloride Carbon Dioxide Anion Gap BUN Creatinine Estim Creat Clear Calc Estimated GFR POC Glucose 136 H Random Glucose Calcium Phosphorus Magnesium Total Bilirubin AST ALT Alkaline Phosphatase Troponin I High Sens 2031.9 H D Total Protein Albumin U Random Total Protein 104 H Ur Random Sodium 53.0 Urine Creatinine 75.96 Random Vancomycin 04/24/20 04/24/20 04/24/20 17:33 18:28 19:03 WBC RBC Hgb Hct MCV MCH MCHC RDW Plt Count MPV Immature Gran % (Auto) Neut % (Auto) Lymph % (Auto) Liberty % (Auto) Eos % (Auto) Baso % (Auto) Lymph # (Auto) Liberty # (Auto) Eos # (Auto) Baso # (Auto) Abs Immat Gran (auto) Absolute Neuts (auto) Absolute Nucleated RBC Nucleated RBC % (auto) Smear Tech's Comments PT 11.9 INR 1.0 PTT (Heparin Protocol) 27.8 L VBG pH VBG pCO2 VBG pO2 VBG HCO3 VBG O2 Saturation VBG Base Excess Sodium 141 Potassium 5.9 H Chloride 95 L Carbon Dioxide 32 H Anion Gap 20 BUN 75 H Creatinine 4.69 H* Estim Creat Clear Calc 16.5 Estimated GFR 12 POC Glucose 162 H Random Glucose 156 H Calcium 6.3 L D Phosphorus Magnesium Total Bilirubin AST ALT Alkaline Phosphatase Troponin I High Sens Total Protein Albumin U Random Total Protein Ur Random Sodium Urine Creatinine Random Vancomycin 04/24/20 04/24/20 04/24/20 19:03 19:03 21:25 WBC 22.5 H RBC 3.81 L Hgb 8.0 L Hct 27.9 L MCV 73.2 L MCH 21.0 L MCHC 28.7 L RDW 29.1 H Plt Count 276 MPV 10.3 Immature Gran % (Auto) Neut % (Auto) Lymph % (Auto) Liberty % (Auto) Eos % (Auto) Baso % (Auto) Lymph # (Auto) Liberty # (Auto) Eos # (Auto) Baso # (Auto) Abs Immat Gran (auto) Absolute Neuts (auto) Absolute Nucleated RBC 0.020 H Nucleated RBC % (auto) 0.1 Smear Tech's Comments PT INR PTT (Heparin Protocol) 28.2 L VBG pH VBG pCO2 VBG pO2 VBG HCO3 VBG O2 Saturation VBG Base Excess Sodium Potassium Chloride Carbon Dioxide Anion Gap BUN Creatinine Estim Creat Clear Calc Estimated GFR POC Glucose 178 H Random Glucose Calcium Phosphorus Magnesium Total Bilirubin AST ALT Alkaline Phosphatase Troponin I High Sens Total Protein Albumin U Random Total Protein Ur Random Sodium Urine Creatinine Random Vancomycin Preliminary micro results at discharge 04/22/20 23:36 Blood Culture - Preliminary Blood - Central Line No growth after 24 hours. 04/23/20 02:38 Sputum Culture - Preliminary Sputum - Suctioned Normal so far. 04/22/20 23:36 Blood Culture - Preliminary Blood - Central Line No growth after 24 hours. Discharge Plan Discharge Date/Time: 04/25/20 00:00 Patient Disposition: Referrals: Physician,Unknown [Primary Care Provider] - Discharge Medications: No Action cilostazol 100 mg Tablet 100 mg PO BID RF: 0 atorvastatin 80 mg Tablet 80 mg PO BEDTIME RF: 0 clopidogrel 75 mg Tablet 75 mg PO DAILY RF: 0 aspirin 81 mg Tablet,Delayed Release (Dr/Ec) 81 mg PO DAILY RF: 0 acetaminophen 500 mg Tablet 500 mg PO TID PRN (Reason: Pain) RF: 0 betamethasone dipropionate 0.05 % Ointment 1 appl TOPICAL BID PRN (Reason: Rash) RF: 0 clotrimazole 1 % Cream 1 appl TOPICAL DAILY RF: 0 bupropion HCl 300 mg Tablet Extended Release 24 Hr 300 mg PO DAILY RF: 0 diltiazem HCl 420 mg Capsule,Extended Release 24 Hr 420 mg PO DAILY RF: 0 cyanocobalamin (vitamin B-12) 1,000 mcg Tablet 1,000 mcg PO DAILY RF: 0 folic acid 1 mg Tablet 1 mg PO DAILY RF: 0 latanoprost 0.005 % Drops 1 drp OPHTHALMIC (EYE) QPM RF: 0 Lantus U-100 Insulin 100 unit/mL Solution 15 unit SUBCUT DAILY RF: 0 lisinopril-hydrochlorothiazide 20-12.5 mg Tablet 1 tab PO BID RF: 0 tolterodine 4 mg Capsule,Extended Release 24hr 4 mg PO DAILY RF: 0 insulin aspart U-100 [Novolog U-100 Insulin aspart] 100 unit/mL Solution See Rx Instructions .ROUTE .COMPLEX RF: 0 zolpidem 10 mg Tablet 10 mg PO BEDTIME PRN (Reason: Sleep) RF: 0 Discharge Date/Time: 04/25/20 00:00
--- NOTE | 2020-04-24 23:19 | PC.NURSE ---
Addendum entered by Valeria Thapa RN 04/25/20 00:27: Extubated at 1142. Asystole at 0000. NEOB declined. Family and PA at bedside. Belongings sent home with family. Postmortem care done. Transfer to [facility] pending. Original Note: After significant conversation between PA and family, terminal extubation planned this evening. Facetime conversations facilitated with patient and several family members. and son coming in to say goodbye prior to extubation. Rug Inspector aware.
[2020-04-28 15:26] LABS: pH VBG 7.33 (7.32-7.43)
== END 2020-04-25 | disposition expired | DRG 208 ==
LOC: HO.ED 15:13 → HO.EDOVER 15:31 → HO.IMC 18:35 → HO.ICU 04-22 21:16
PROVIDERS: Anesthesiology; Hospitalist; Internal Medicine; Internal Medicine Nephrology; Physician Assistant Medical; Admitting Provider Family Medicine; Emergency Provider Internal Medicine; Visit Provider Internal Medicine Pulmonary Disease
DX: U07.1 COVID-19 (principal); J12.82 Pneumonia due to coronavirus disease 2019; J80 Acute respiratory distress syndrome; A41.89 Other specified sepsis; N17.0 Acute kidney failure with tubular necrosis; I42.9 Cardiomyopathy, unspecified; N32.81 Overactive bladder; E78.5 Hyperlipidemia, unspecified; I10 Essential (primary) hypertension; E11.65 Type 2 diabetes mellitus with hyperglycemia; D50.9 Iron deficiency anemia, unspecified; F32.9 Major depressive disorder, single episode, unspecified; E87.5 Hyperkalemia; E11.51 Type 2 diabetes mellitus with diabetic peripheral angiopathy without gangrene; Z79.4 Long term (current) use of insulin; Z79.02 Long term (current) use of antithrombotics/antiplatelets; Z79.82 Long term (current) use of aspirin; Z79.899 Other long term (current) drug therapy
CPT/HCPCS: 36415; 36430; 36600; 71045; 71275; 80048; 80053; 80076; 80202; 81001; 82009; 82040; 82272; 82728; 82803; 82947; 83036; 83540; 83605; 83615; 83735; 83880; 84100; 84145; 84156; 84300; 84484; 85014; 85018; 85025; 85027; 85060; 85379; 85610; 85730; 86140; 86850; 86900; 86901; 86923; 87040; 87070; 87205; 87635; 93005; 94002; 94003; 94640; 94644; 94645; 94660; 96374; 99285; C1758; J0171; J0330; J0610; J1100; J1170; J1650; J2270; J2543; J2930; J3010; J3370; J3475; J3490; P9016; P9047; Q9967